=== PATIENT | female | born 1985 | race Caucasian/White ===

== ENCOUNTER 2023-08-15 12:41 | Outpatient (CLI) | payer OTHER, SELFPAY | END 2023-08-15 12:42 | disposition home or self-care (01) | LOC: AMB 09-01 12:52 | PROVIDERS: Visit Provider Student in an Organized Health Care Education/Training Program | DX: R41.82 Altered mental status, unspecified (principal) | CPT/HCPCS: A0425; A0427 ==

== ENCOUNTER 2024-12-26 12:33 | Outpatient (CLI) | payer OTHER, SELFPAY | END 2024-12-26 12:34 | disposition home or self-care (01) | LOC: NFLDREF 12-31 01:35 | PROVIDERS: Visit Provider Nurse Practitioner Family | DX: R30.0 Dysuria (principal); N39.0 Urinary tract infection, site not specified; R35.0 Frequency of micturition | CPT/HCPCS: 87086; 87186 ==

== ENCOUNTER 2025-01-13 11:25 | Outpatient (CLI) | payer OTHER, SELFPAY | END 2025-01-13 11:26 | disposition home or self-care (01) | LOC: NFLDREF 11:27 | PROVIDERS: Visit Provider Obstetrics & Gynecology | DX: N92.0 Excessive and frequent menstruation with regular cycle (principal) | CPT/HCPCS: 84443 ==

== ENCOUNTER 2025-01-20 09:14 | Outpatient (CLI) | payer OTHER, SELFPAY ==
--- NOTE | 2025-01-20 09:15 | CRLHL7_ITS ---
For Patients: As a result of the Century Cures Act, medical imaging exams and procedure reports are released immediately into your electronic medical record. You may view this report before your referring provider. If you have questions, please contact your health care provider. INDICATION: Menorrhagia and dysmenorrhea TECHNIQUE: Ultrasound pelvis transabdominal and transvaginal for better assessment or to better visualize the endometrium. Real-time sonographic images with color Doppler imaging of the ovaries were obtained. COMPARISON: Pelvic ultrasound 11/16/2016 FINDINGS: Uterus: 10.1 x 4.9 x 7.4 cm. Normal echotexture of the myometrium. No masses. Endometrium: Transvaginal imaging was performed to better evaluate the endometrium. Small amount of fluid within the endometrium that is difficult to accurately measure. Poorly visualized, irregular junctional zone with a few cystic areas. Right ovary measures 5.5 x 4.2 x 4.3 cm. Left ovary measures 3.3 x 1.4 x 2 cm. Simple right ovarian cyst measuring up to 4.1 cm. Blood flow is demonstrated in both ovaries. Cul-de-sac: No significant free fluid. IMPRESSION: Small amount of fluid within the endometrium that is difficult to accurately measure. Poorly visualized, irregular junctional zone with a few cystic areas suspicious for adenomyosis. Pelvic MRI could be considered for further evaluation Dictated by Nohelia Aggarwal MD @ 01/23/2025 9:41:38 AM (Electronically Signed)
== END 2025-01-20 09:15 | disposition home or self-care (01) ==
LOC: US 09:14
PROVIDERS: Visit Provider Obstetrics & Gynecology
DX: N92.0 Excessive and frequent menstruation with regular cycle (principal); N94.6 Dysmenorrhea, unspecified
CPT/HCPCS: 76830; 76856

== ENCOUNTER 2025-01-29 11:06 | Outpatient (CLI) | payer OTHER, SELFPAY | END 2025-01-29 11:07 | disposition home or self-care (01) | PROVIDERS: Visit Provider Obstetrics & Gynecology | DX: D64.9 Anemia, unspecified (principal); N92.0 Excessive and frequent menstruation with regular cycle | CPT/HCPCS: 82728 ==

== ENCOUNTER 2025-02-20 14:48 | Emergency (ER) | payer OTHER, SELFPAY ==
--- OUTSIDE RECORDS SUMMARY | 2025-01-28 17:35 | XMS_ITS | Encounter Summary ---
Author Organization [place] Address [address] [place] [address]. [place] [address] Care Team Providers Care Oceanographic Meteorologist Name Role Phone Clinic, [facility] Pro vider Khushbu Jain RN Unavailable Unavailable Carmen Menon MD Unavailable + [phone] Tayler Courtney MD PhD Unavailable [phone] Carmen Menon MD Unavailable + [phone] Tayler Courtney MD PhD Unavailable [phone] Jayne Sumner [facility] Unavailable Unavailable Reason for Visit * Reason Comments Derm Problem Body rashes noticed today, itchiness, redness and spreading rapidly. No other symptoms. Encounter Details Date Type Department Care Team (Late st Contact Info) Description 01/28/2025 5:35 PM CDT Office Visit [facility] [place] [address] [place] [phone] Violetta Dorsey PA-C [address] [place] [address] Hives (Primary Dx) Social History Tobacco Use [...] Sex Assigned at Female 05/03/2024 7:08 AM FINANCIAL SYSTEMS DIRECTOR Legal Sex Female 3:27 AM FINANCIAL SYSTEMS DIRECTOR Gender Identity Female 05/03/2024 7:08 AM FINANCIAL SYSTEMS DIRECTOR Sexual Orientation Not on file documented [...] be sent through Care Everywhere. * Urticaria (Japanese) documented in this encounter Progress Notes * Kush Dalal MA - 01/28/2025 5:35 PM CDT Urgent Care Clinic Visit Chief Complaint Patient presents with Derm Problem Body rashes noticed today, itchiness, redness and spreading rapidly. No other symptoms. 01/28/2025 6:11 PM Additional Questions Roomed by kush Accompanied by margret * iVoletta Dorsey PA-C - 01/28/2025 5:35 PM CDT [...] Symptoms failing to improve. Violetta Dorsey PA-C [facility] [place] is a 39 year old female who presents to clinic today for the following health issues: Chief Complaint Patient presents with Derm Problem Body rashes noticed today, itchiness, redness and spreading rapidly. No other symptoms. 01/28/2025 6:11 PM Additional Questions Roomed by kush Accompanied by marrget YE Patient with medical history significant for [...] Description 04/07/2025 3:00 PM CDT Ancillary Procedure [facility] [place] [address] [facility] 1st [place] [phone] Carmen Menon MD [address] [place] [id number] 04/07/2025 4:30 PM CDT Oncology Visit [facility] [address] [place] [phone] Carmen Menon MD [address] [place] [address] [phone] 04/10/2025 11:00 AM CDT Office Visit [facility] Radiation Oncology [address] [facility], [address]st [place] [phone] Tayler Courtney MD PhD [address] [place] [phone] documented as of this encounter Goals Goal [...] documented as of this encounter Care Teams Oceanographic Meteorologist Relationship Specialty Start Date End Date Clinic, [facility] [place] [address] [place] [address] PCP - General 08/15/23 Khushbu Jain, RN Specialty Lithographic Press Operator Apprentice Hematology & Oncology 09/04/23 Carmen Menon MD [address] [place], [place] [phone] Neurology 09/04/23 Tayler Courtney MD PhD [address] [place] [address] [phone] Radiation Oncology 09/04/23 Carmen Menon MD [address] [place], [place] [phone] Assigned Neuroscience Provider 09/16/23 Tayler Courtney MD PhD [address] [place] [address] [phone] Assigned Cancer Care Provider 10/17/23 Jayne Sumner, [facility] Pharmacist 11/07/23 documented as of this encounter
[2025-02-20] VITALS (13 sets, daily range): BP systolic 110–169; BP diastolic 53–78; PULSE 56–84; RESP 14–20; TEMP 36.1–36.6; O2SAT 96–100; BMI 40.7
--- NOTE | 2025-02-20 15:05 | ED_ITS ---
HPI - Female Genitourinary General Time Seen by Provider: 15:05 <Kandace Concepcion MD - Last Filed: 02/23/25 22:05> Date Seen: 02/20/25 <Kandace Concepcion MD - Last Filed: 02/23/25 22:05> Chief complaint: Vaginal Bleeding <Kandace Concepcion MD - Last Filed: 02/23/25 22:05> Stated complaint: vaginal bleeding <Kandace Concepcion MD - Last Filed: 02/23/25 22:05> Time Seen by Provider: 02/20/25 14:53 <Kandace Concepcion MD - Last Filed: 02/23/25 22:05> Source: patient, RN notes reviewed and old records reviewed <Kandace Mclain MD - Last Filed: 02/23/25 22:05> Mode of arrival: ambulatory <Kandace Concepcion MD - Last Filed: 02/23/25 22:05> Limitations: no limitations <Kandace Concepcion MD - Last Filed: 02/23/25 22:05> History of Present Illness HPI Narrative: This 39-year-old female with known menorrhagia whom has seen Lacey here is coming in with ongoing menstrual bleeding. She is had heavy vaginal bleeding for the last 10 days. She uses the cervical cup, is emptying it every 2 hours. She has baseline significant anemia. She is scheduled for hysterectomy on . She tried to use a super tampon blood through within 30 minutes per report. She [facility] and they advised her to come in. She is not feeling lightheaded, no shortness of breath, no chest pain, no dizziness, no symptoms from any acute blood loss at this time. 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 She did follow the protocol of norethindrone tablets outlined, it did not stop the bleeding. She has had a workup. Please see Dr. Claros's notes form November and December of this year. <Kandace Concepcion MD - Last Filed: 02/23/25 22:05> elicited complaint: vaginal bleeding <Kandace Concepcion MD - Last Filed: 02/23/25 22:05> Related Data Home medications: Home Medications ?Medication ?Instructions ?Recorded ?Confirmed escitalopram oxalate 10 mg tablet 10 mg PO QDAY 02/20/25 ferrous gluconate 324 mg (38 mg mg PO DAILY 06/04/24 0 01/29/25 iron) tablet levetiracetam 1,000 mg tablet 1,000 mg PO BID 06/04/24 02/20/25 Previous Rx's ?Medication ?Instructions ?Recorded norethindrone acetate 5 mg tablet 5 mg PO TID PRN blee ding #60 tabs 02/20/25 tranexamic acid 650 mg tablet 1,300 mg (2 x 650 mg) PO TID 5 02/20/25 days #30 tabs <Kandace Concepcion MD - Last Filed: 02/23/25 22:05> Allergies/Adverse reactions: Allergies Allergy/AdvReac Type Severity Reaction Status Date / Time No Known Drug Allergies Allergy Verified 02/20/25 14:54 <Kandace Concepcion MD - Last Filed: 02/23/25 22:05> [facility] Medical History: Medical History (Updated 02/21/25 @ 10:41 by Michelle Todd ~ RN, RN) History of vaginal delivery 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 (ICD-10) <Kandace Concepcion MD - Last Filed: 02/23/25 22:05> Surgical History: Surgical History History of excision of lesion (08/23/23) ?Z98.890 - Other specified postprocedural states (ICD-10) ?Z87.2 - Personal history of diseases of the skin and subcutaneous tissue (ICD-10) History of excision of pilonidal cyst (2000) ?Z98.890 - Other specified postprocedural states (ICD-10) H/O dilation and curettage (07/26/16) ?Z98.890 - Other specified postprocedural states (ICD-10) <Kandace Concepcion MD - Last Filed: 02/23/25 22:05> Family History: Family History (Updated 01/14/25 @ 10:00 by Felisha Claros MD) Family/Other No problems noted. Brother Abuse, drug or alcohol Aunt Abuse, drug or alcohol Grandfather Stroke Maternal Grandmother Cancer <Kandace Concepcion MD - Last Filed: 02/23/25 22:05> Social History: Social History (Updated 01/14/25 @ 10:01 by Felisha Claros MD) Narrative: Cis-gender, heterosexual woman Relationship status: . Spouse/Partner: Pee Lives with her 10 children Education: Associates degree Occupation: [employer] mom Tobacco: Never smoker E-cigarettes: No Alcohol: Yes.-2 servings/month Illicit/recreational drugs: No Safety concerns at home or work: No Dietary restriction(s): No Exercise: Yes, walk 3 times per week Smoking Status: Never smoker How often do you have a drink containing alcohol: monthly or less AUDIT-C Alcohol total score: 1 Non-prescribed substance use: denies use <Kandace Concepcion MD - Last Filed: 02/23/25 22:05> Exam Const: Vital Signs, click to edit/add: Vital Signs - 24 hr 02/20/25 14:56 02/20/25 16:20 02/20/25 18:39 Temperature 97.6 F 97.1 F L Pulse Rate 66 70 Pulse Rate [Pulse Oximeter] 84 Respiratory Rate 20 14 16 Blood Pressure 116/69 113/53 L Blood Pressure [Ri ght Upper Arm] 135/72 Pulse Oximetry 99 100 100 Oxygen Delivery Me thod Room Air Room Air 02/20/25 18:57 02/20/25 19:27 02/20/25 19:57 Temperature 97.4 F L 97.2 F L 97.2 F L Pulse Rate 61 63 61 Pulse Rate [Pulse Oximeter] Respiratory Rate 16 16 14 Blood Pressure 116/55 L 116/55 L 128/69 Blood Pressure [Ri ght Upper Arm] Pulse Oximetry 100 100 100 Oxygen Delivery Me thod Room Air Room Air Room Air 02/20/25 20:17 02/20/25 20:24 02/20/25 20:47 Temperature 97.3 F L 97.8 F Pulse Rate 68 58 L 60 Pulse Rate [Pulse Oximeter] Respiratory Rate 16 16 16 Blood Pressure 169/78 H 114/57 L 112/71 Blood Pressure [Ri ght Upper Arm] Pulse Oximetry 96 98 100 Oxygen Delivery Me thod Room Air Room Air 02/20/25 21:04 02/20/25 21:05 02/20/25 21:35 Temperature 97.4 F L 96.9 F L 97.2 F L Pulse Rate 60 56 L 66 Pulse Rate [Pulse Oximeter] Respiratory Rate 16 14 16 Blood Pressure 110/60 121/62 130/77 Blood Pressure [Ri ght Upper Arm] Pulse Oximetry 98 98 100 Oxygen Delivery Me thod Room Air Room Air Room Air <Kandace Concepcion MD - Last Filed: 02/23/25 22:05> Vital Signs, click to edit/add: Vital Signs - 24 hr 02/20/25 14:56 02/20/25 16:20 02/20/25 18:39 Temperature 97.6 F 97.1 F L Pulse Rate 66 70 Pulse Rate [Pulse Oximeter] 84 Respiratory Rate 20 14 16 Blood Pressure 116/69 113/53 L Blood Pressure [Ri ght Upper Arm] 135/72 Pulse Oximetry 99 100 100 Oxygen Delivery Me thod Room Air Room Air 02/20/25 18:57 02/20/25 19:27 02/20/25 19:57 Temperature 97.4 F L 97.2 F L 97.2 F L Pulse Rate 61 63 61 Pulse Rate [Pulse Oximeter] Respiratory Rate 16 16 14 Blood Pressure 116/55 L 116/55 L 128/69 Blood Pressure [Ri ght Upper Arm] Pulse Oximetry 100 100 100 Oxygen Delivery Me thod Room Air Room Air Room Air 02/20/25 20:17 02/20/25 20:24 02/20/25 20:47 Temperature 97.3 F L 97.8 F Pulse Rate 68 58 L 60 Pulse Rate [Pulse Oximeter] Respiratory Rate 16 16 16 Blood Pressure 169/78 H 114/57 L 112/71 Blood Pressure [Ri ght Upper Arm] Pulse Oximetry 96 98 100 Oxygen Delivery Me thod Room Air Room Air 02/20/25 21:04 02/20/25 21:05 02/20/25 21:35 Temperature 97.4 F L 96.9 F L 97.2 F L Pulse Rate 60 56 L 66 Pulse Rate [Pulse Oximeter] Respiratory Rate 16 14 16 Blood Pressure 110/60 121/62 130/77 Blood Pressure [Ri ght Upper Arm] Pulse Oximetry 98 98 100 Oxygen Delivery Me thod Room Air Room Air Room Air <Pee Guidry MD - Last Filed: 02/20/25 22:22> Course Course ED Course: Patient signed out to Dr. Guidry at 4:00 p.m., pending results of CBC CBC came back with a low hemoglobin at 6.4. Her baseline hemoglobin is around 7.5 and was recently 7.8. Dr. Guidry discussed with the patient's collar separator, Dr. Reagan Thorpe. Gynecology wants us to give her a transfusion here in the ER because of her anemia with a hemoglobin less than 7. Dr. Reagan Thorpe also recommends 1 g of tranexamic acid IV-ordered. Also Dr. Reagan Thorpe requests 20 mg of medroxyprogesterone p.o.. -ordered. Patient did well during her transfusions. Transfusion is station was delayed by a long process of type and cross in the lab. Recheck-10:00 p.m.. Still doing well. Part way through her 2nd unit infusion Plan will be to discharge after completing her infusion. She is going to start on additional medroxyprogesterone prescribed by her collar separator. She will follow-up with Gynecology Clinic. <Pee Guidry MD - Last Filed: 02/20/25 22:22> Vital Signs Vital signs: Initial Vital Signs Temperature 97.6 F 02/20/25 14:56 Temperature Source Temporal Artery Scan 02/20/25 14:56 Pulse Rate 84 02/20/25 14:56 Respiratory Rate 20 02/20/25 14:56 Blood Pressure 135/72 02/20/25 14:56 Blood Pressure Mean 93 02/20/25 14:56 Pulse Oximetry 99 02/20/25 14:56 Oxygen Delivery Method Room Air 02/20/25 14:56 Vital Signs Temperature 97.6 F 02/20/25 14:56 Pulse Rate 84 02/20/25 14:56 Respiratory Rate 20 02/20/25 14:56 Blood Pressure 135/72 02/20/25 14:56 Pulse Oximetry 99 02/20/25 14:56 Oxygen Delivery Method Room Air 02/20/25 14:56 Temperature 97.3 F L 02/20/25 22:05 Pulse Rate 60 02/20/25 22:05 Respiratory Rate 14 02/20/25 22:05 Blood Pressure 126/57 L 02/20/25 22:05 Pulse Oximetry 98 02/20/25 22:05 Oxygen Delivery Method Room Air 02/20/25 22:05 <Kandace Concepcion MD - Last Filed: 02/23/25 22:05> Initial Vital Signs Temperature 97.6 F 02/20/25 14:56 Temperature Source Temporal Artery Scan 02/20/25 14:56 Pulse Rate 84 02/20/25 14:56 Respiratory Rate 20 02/20/25 14:56 Blood Pressure 135/72 02/20/25 14:56 Blood Pressure Mean 93 02/20/25 14:56 Pulse Oximetry 99 02/20/25 14:56 Oxygen Delivery Method Room Air 02/20/25 14:56 Vital Signs Temperature 97.6 F 02/20/25 14:56 Pulse Rate 84 02/20/25 14:56 Respiratory Rate 20 02/20/25 14:56 Blood Pressure 135/72 02/20/25 14:56 Pulse Oximetry 99 02/20/25 14:56 Oxygen Delivery Method Room Air 02/20/25 14:56 Temperature 97.3 F L 02/20/25 22:05 Pulse Rate 60 02/20/25 22:05 Respiratory Rate 14 02/20/25 22:05 Blood Pressure 126/57 L 02/20/25 22:05 Pulse Oximetry 98 02/20/25 22:05 Oxygen Delivery Method Room Air 02/20/25 22:05 <Pee Guidry MD - Last Filed: 02/20/25 22:22> Medications Administered Medications: Discontinued Medications Generic Name Dose Route Start Last Admin Trade Name Dhavalq PRN Reason Stop Dose Admin Tranexamic Acid 1,000 mg/ 110 mls @ 660 mls/hr 02/20/25 17:10 02/20/25 17:30 Sodium Chloride IVPB 02/20/25 17:19 Infused ONCE ONE Infusion Medroxyprogesterone Acetate 20 mg 02/20/25 19:55 02/20/25 20:21 Medroxyprogesterone 5 Mg Tablet PO 02/20/25 19:56 20 mg ONCE ONE Administration Sodium Chloride 250 ml 02/20/25 16:32 02/20/25 18:44 0.9 % Sodium Chloride 500 Ml IV 02/21/25 23:59 250 ml ONCE PRN Administration <Kandace Concepcion MD - Last Filed: 02/23/25 22:05> Discontinued Medications Generic Name Dose Route Start Last Admin Trade Name Mary PRN Reason Stop Dose Admin Tranexamic Acid 1,000 mg/ 110 mls @ 660 mls/hr 02/20/25 17:10 02/20/25 17:30 Sodium Chloride IVPB 02/20/25 17:19 Infused ONCE ONE Infusion Medroxyprogesterone Acetate 20 mg 02/20/25 19:55 02/20/25 20:21 Medroxyprogesterone 5 Mg Tablet PO 02/20/25 19:56 20 mg ONCE ONE Administration Sodium Chloride 250 ml 02/20/25 16:32 02/20/25 18:44 0.9 % Sodium Chloride 500 Ml IV 02/21/25 23:59 250 ml ONCE PRN Administration <Pee Guidry MD - Last Filed: 02/20/25 22:22> MDM - Female Genitourinary Lab Data Labs: Lab Results 02/20/25 02/20/25 Range/Units 15:35 16:24 WBC 5.23 (4.50-11.00) K/uL RBC 3.00 L (4.00-5.20) m/uL Hgb 6.4 L* (12.0-16.0) gm/dL Hct 22.1 L (33.0-51.0) % MCV 74 L (80-100) fL MCH 21 L (26-34) pg MCHC 29 L (32-36) gm/dL RDW Coeff of Zoë 20.1 H (11.5-15.5) % Plt Count 272 (140-440) K/uL Neut % (Auto) 66.3 (42.0-72.0) % Lymph % (Auto) 22.0 (20-44) % [place] % (Auto) 6.5 (0.0-11.0) % Eos % (Auto) 4.0 (0.0-7.0) % Baso % (Auto) 1.0 (0.0-3.0) % Neut # (Auto) 3.47 (1.7-7.0) K/uL Lymph # (Auto) 1.15 (0.90-2.90) K/uL [place] # (Auto) 0.30 (0.00-0.90) K/UL Eos # (Auto) 0.21 (0.00-0.50) K/uL Baso # (Auto) 0.05 (0.00-0.30) K/uL Abs Immat Gran (auto) 0.01 (0.00-0.30) K/uL Imm/Tot Granulo (auto) 0.2 % INR 1.06 (0.91-1.10) APTT 27 (23-33) Seconds Lab Acknowledgement Test Added Blood Type O Positive Antibody Screen NEGATIVE Crossmatch (AHG) See Detail <Kandace Concepcion MD - Last Filed: 02/23/25 22:05> Lab Results 02/20/25 02/20/25 Range/Units 15:35 16:24 WBC 5.23 (4.50-11.00) K/uL RBC 3.00 L (4.00-5.20) m/uL Hgb 6.4 L* (12.0-16.0) gm/dL Hct 22.1 L (33.0-51.0) % MCV 74 L (80-100) fL MCH 21 L (26-34) pg MCHC 29 L (32-36) gm/dL RDW Coeff of Zoë 20.1 H (11.5-15.5) % Plt Count 272 (140-440) K/uL Neut % (Auto) 66.3 (42.0-72.0) % Lymph % (Auto) 22.0 (20-44) % [place] % (Auto) 6.5 (0.0-11.0) % Eos % (Auto) 4.0 (0.0-7.0) % Baso % (Auto) 1.0 (0.0-3.0) % Neut # (Auto) 3.47 (1.7-7.0) K/uL Lymph # (Auto) 1.15 (0.90-2.90) K/uL [place] # (Auto) 0.30 (0.00-0.90) K/UL Eos # (Auto) 0.21 (0.00-0.50) K/uL Baso # (Auto) 0.05 (0.00-0.30) K/uL Abs Immat Gran (auto) 0.01 (0.00-0.30) K/uL Imm/Tot Granulo (auto) 0.2 % INR 1.06 (0.91-1.10) APTT 27 (23-33) Seconds Lab Acknowledgement Test Added Blood Type O Positive Antibody Screen NEGATIVE Crossmatch (AHG) See Detail <Pee Guidry MD - Last Filed: 02/20/25 22:22> Discharge Plan Discharge Clinical Impression: Abnormal vaginal bleeding, Anemia <Kandace Concepcion MD - Last Filed: 02/23/25 22:05> Patient Disposition: Home, Self-Care <Kandace Concepcion MD - Last Filed: 02/23/25 22:05> Condition: Stable <Kandace Concepcion MD - Last Filed: 02/23/25 22:05> Instructions: Abnormal (Dysfunctional) Uterine Bleeding (ED), Anemia (ED) <Kandace Concepcion MD - Last Filed: 02/23/25 22:05> Additional Instructions: As we discussed, please return to the ER right away if you have any concerns especially worsening heavy bleeding, abdominal pain, fever, or symptoms of anemia such as weakness, dizziness, or fainting Please follow-up with her collar separator in clinic as soon as possible. Continue on your other medications as prescribed by your collar separator. <Kandace Concepcion MD - Last Filed: 02/23/25 22:05> Prescriptions: No Action escitalopram oxalate 10 mg tablet 10 mg PO QDAY levetiracetam 1,000 mg tablet 1,000 mg PO BID ferrous gluconate 324 mg (38 mg iron) tablet PO DAILY norethindrone acetate 5 mg tablet 5 mg PO TID PRN (Reason: bleeding) Qty: 60 1RF tranexamic acid 650 mg tablet 1,300 mg PO TID 5 Days Qty: 30 2RF Rx Instructions: Use for 5 days during your menstrual cycle. <Kandace Concepcion MD - Last Filed: 02/23/25 22:05> Follow Up/Referrals: Provider,Not a Local [Primary Care Provider, Family Practice] <Kandace Concepcion MD - Last Filed: 02/23/25 22:05> Stand Alone Forms: MyHealth Info Instructions <Kandace Concepcion MD - Last Filed: 02/23/25 22:05>
--- OUTSIDE RECORDS SUMMARY | 2025-02-20 15:20 | XMS_ITS | Encounter Summary ---
Author Organization [facility] Address [address] [place] [address]. [place] [address] Care Team Providers Care Sawmill Or Timber Yard Worker Name Role Phone Clinic, [facility] [place] [facility] Pro vider Khushbu Jain RN Unavailable Unavailable Carmen Menon MD Unavailable [phone] Tayler Courtney MD PhD Unavailable [phone] Cramen Menon MD Unavailable + [phone] Tayler Courtney MD PhD Unavailable [phone] Jayne Sumner [facility] Unavailable Unavailable Encounter Details Date Type Department Care Team (Late st Contact Info) Description 12/22/2023 [facility] [address] [place] [address] Jarrell Keith Social History Tobacco Use Types Packs/Day Years Used Date Smoking Tobacco: Never Passive Smoke Exposure: Never Alcohol Use Standard Drinks/Week Comments No 0 (1 standard drink = 0.6 oz pur e alcohol) PHQ-2 Answer Date Recorded PHQ-2 Score 2 09/07/2023 Adolescent Education Answer Date Record ed Getting School Help Needed Not on file 08/15 Comments No Sex and Gender Information Value Date Recorded Sex Assigned at Female 05/03/2024 7:08 AM FIELD DIRECTOR Legal Sex Female 3:27 AM FIELD DIRECTOR Gender Identity Female 05/03/2024 7:08 AM FIELD DIRECTOR Sexual Orientation Not on file documented as of this encounter Plan of Treatment Upcoming Encounters Date Type Department Care Team (Late st Contact Info) Description 04/07/2025 3:00 PM CDT Ancillary Procedure [facility] [address] [facility] [address] [place] [phone] Carmen Menon MD [address] [place] [address] [id number] 04/07/2025 4:30 PM CDT Oncology Visit [facility] [address] [place] [phone] Carmen Menon MD [address] [place] [address] [phone] 04/10/2025 11:00 AM CDT Office Visit [facility] Radiation Oncology [address] [facility], [address] [place] [phone] Tayler Courtney MD PhD [address] [place] [address] [id number] documented as of this encounter Goals Goal [...] documented as of this encounter Visit Diagnoses Not on filedocumented in this encounter Additional Health Concerns Active Problems Noted Date Diagnosed Date MyC ECC SURG ENROLL 08/18/2023 documented as of this encounter Care Teams Sawmill Or Timber Yard Worker Relationship Specialty Start Date End Date [facility] [address] [place] [address] PCP - General 08/15/23 Khushbu Jain, RN Specialty [facility] Oncology 09/04/23 Carmen Menon MD [address] [place] [address] Neurology 09/04/23 Tayler Courtney MD PhD [address] [place] [address] Radiation Oncology 09/04/23 Carmen Menon MD [address] [place] [address] Assigned Neuroscience Provider 09/16/23 Tayler Courtney MD PhD [address] [place] [address] Assigned Cancer Care Provider 10/17/23 Jayne Sumner [facility] Pharmacist 11/07/23 documented as of this encounter
--- OUTSIDE RECORDS SUMMARY | 2025-02-20 15:20 | XMS_ITS | Encounter Summary ---
Author Organization [facility] Address [address] [place] [address]. [place] [address] Care Team Providers Care Head Banquet Waitress Name Role Phone Clinic, [facility] [place] [facility] Pro vider Khushbu Jain RN Unavailable Unavailable Carmen Menon MD Unavailable [phone] Tayler Courtney MD PhD Unavailable [phone] Carmen Menon MD Unavailable + [phone] Tayler Courtney MD PhD Unavailable [phone] Jayne Sumner [facility] Unavailable Unavailable Encounter Details Date Type Department Care Team (Late st Contact Info) Description 09/04/2023 [facility] Medical Advice [facility] [address] [place] [address] Nirav Dugan, [facility] Social History Tobacco Use Types Packs/Day Years Used Date Smoking Tobacco: Never Alcohol Use Standard Drinks/Week Comments No 0 (1 standard drink = 0.6 oz pur e alcohol) PHQ-2 Answer Date Recorded PHQ-2 Score 2 09/07/2023 Adolescent Education Answer Date Record ed Getting School Help Needed Not on file 08/15 Comments Unknown Sex and Gender Information Value Date Recorded Sex Assigned at Female 05/03/2024 7:08 AM ARMORED CAR MESSENGER Legal Sex Female 3:27 AM ARMORED CAR MESSENGER Gender Identity Female 05/03/2024 7:08 AM ARMORED CAR MESSENGER Sexual Orientation Not on file documented as of this encounter Plan of Treatment Upcoming Encounters Date Type Department Care Team (Late st Contact Info) Description 04/07/2025 3:00 PM CDT Ancillary Procedure [facility] Imaging Center [facility] [address] [facility] [address] [place] [phone] Carmen Menon MD [address] [place] [address] [phone] 04/07/2025 4:30 PM CDT Oncology Visit [facility] [address] [place] [phone] Carmen Menon MD [address] [place] [address] [phone] 04/10/2025 11:00 AM CDT Office Visit [facility] Radiation Oncology [address] [facility], [address] [place] [phone] Tayler Courtney MD PhD [address] [place] [address] [id number] documented as of this encounter Goals Goal Patient Goal Type Associated Problems Recent Progress Patient-Stated? Author MYC ECC SURG ENROLL Care Plan MyC ECC SURG ENROLL [place] Monica Cummins Ruben documented as of this encounter Visit Diagnoses Not on filedocumented in this encounter Additional Health Concerns Active Problems Noted Date Diagnosed Date MyC ECC SURG ENROLL 08/18/2023 Infection Onset Date Last Indicated Resolved Time Recovered COVID 08/14/2023 08/25/2023 11/08/2023 1 1:39 PM CDT documented as of this encounter Care Teams Head Banquet Waitress Relationship Specialty Start Date End Date Clinic, [facility] [id number] [place] [address] PCP - General 08/15/23 Khushbu Jain, RN Specialty Manager Corporate Hematology & Oncology 09/04/23 Carmen Menon MD [address] [place] [address] Neurology 09/04/23 Tayler Courtney MD PhD [address] [place] [address] Radiation Oncology 09/04/23 Carmen Menon MD [address] [place] [address] Assigned Neuroscience Provider 09/16/23 Tayler Courtney MD PhD [address] [place] [address] Assigned Cancer Care Provider 10/17/23 Jayne Sumner [facility] Pharmacist 11/07/23 documented as of this encounter
--- OUTSIDE RECORDS SUMMARY | 2025-02-20 15:20 | XMS_ITS | Encounter Summary ---
Author Organization [facility] Address [address] [place] [address] Care Team Providers Care Stator Connector Name Role Phone Clinic, [place] [facility] [place] [facility] Pro vider Khushbu Jain RN Unavailable Unavailable Carmen Menon MD Unavailable + [phone] Tayler Courtney MD PhD Unavailable [phone] Carmen Menno MD Unavailable + [phone] Tayler Courtney MD PhD Unavailable [phone] Jayne Sumner [facility] Unavailable Unavailable Encounter Details Date Type Department Care Team (Late st Contact Info) Description 11/02/2023 MyC Medical Advice [facility] Radiation Oncology [address] [facility], 1st [place] [phone] Tayler Courtney MD PhD [address] [place] [id number] Social History Tobacco Use Types Packs/Day Years [...] Sex Assigned at Female 05/03/2024 7:08 AM METEOROLOGY PROFESSOR Legal Sex Female 3:27 AM METEOROLOGY PROFESSOR Gender Identity Female 05/03/2024 7:08 AM METEOROLOGY PROFESSOR Sexual Orientation Not on file documented as of this encounter Plan of Treatment Upcoming Encounters Date Type Department Care Team (Late st Contact Info) Description 04/07/2025 3:00 PM CDT Ancillary Procedure [facility] Imaging Center [facility] [address] [facility] [address] [place] [phone] Carmen Menon MD [address] [place] [phone] 04/07/2025 4:30 PM CDT Oncology Visit [facility] [address] [place] [phone] Carmen Menon MD [address] [place] [address] [phone] 04/10/2025 11:00 AM CDT Office Visit [facility] Radiation Oncology [address] [facility], [address] [place] [phone] Tayler Courtney MD PhD [address] [place] [address] documented as of this encounter Goals Goal [...] documented as of this encounter Care Teams Stator Connector Relationship Specialty Start Date End Date Clinic, [facility] [address] [place] [address] PCP - General 08/15/23 Khushbu Jain, ANAND Specialty Thread Weaver Hematology & Oncology 09/04/23 Carmen Menon MD [address] [place] [phone] Neurology 09/04/23 Tayler Courtney MD PhD [address] [place] [address] Radiation Oncology 09/04/23 Carmen Menon MD [address] [place] [address] Assigned Neuroscience Provider 09/16/23 Tayler Courtney MD PhD [address] [place] [address] Assigned Cancer Care Provider 10/17/23 Jayne Sumner, [facility] Pharmacist 11/07/23 documented as of this encounter
--- OUTSIDE RECORDS SUMMARY | 2025-02-20 15:20 | XMS_ITS | Encounter Summary ---
Author Organization [place] Address [address] [place] [address]. [place] [address] Care Team Providers Care Capacity Planning Manager Name Role Phone Clinic, [facility] [place] [facility] Pro vider Khushbu Jain RN Unavailable Unavailable Carmen Menon MD Unavailable +[phone] Tayler Courtney MD PhD Unavailable [phone] Carmen Menon MD Unavailable + [phone] Tayler Courtney MD PhD Unavailable [phone] Jayne Sumner [facility] Unavailable Unavailable Encounter Details Date Type Department Care Team (Late st Contact Info) Description 04/22/2024 [facility] Medical Advice [facility] [address] [place] [address] Sharron Johnson Social History Tobacco Use Types Packs/Day Years [...] Sex Assigned at Female 05/03/2024 7:08 AM COMMERCIAL ESTIMATOR Legal Sex Female 3:27 AM COMMERCIAL ESTIMATOR Gender Identity Female 05/03/2024 7:08 AM COMMERCIAL ESTIMATOR Sexual Orientation Not on file documented as of this encounter Plan of Treatment Upcoming Encounters Date Type Department Care Team (Late st Contact Info) Description 04/07/2025 3:00 PM CDT Ancillary Procedure [facility] 909 [facility] 1st [place] [phone] Carmen Menon MD [address] [place] [address] 226555 04/07/2025 4:30 PM CDT Oncology Visit [facility] 909 [place] [phone] Carmen Menon MD [address] [place] [address] 612175 04/10/2025 11:00 AM CDT Office Visit [facility] Radiation Oncology 500 [facility], 1st [place] [phone] Tayler Courtney MD PhD [address] [place] [address] 10[address]45 documented as of this encounter Goals Goal [...] documented as of this encounter Care Teams Capacity Planning Manager Relationship Specialty Start Date End Date [facility] [address] [place] [address] PCP - General 08/15/23 Khushbu Jain, RN Specialty Pipe Racker Hematology & Oncology 09/04/23 Carmen Menon MD 909 [place] [address] Neurology 09/04/23 Tayler Courtney MD PhD [address] [place] [address] Radiation Oncology 09/04/23 Carmen Menon MD 909 [place] [address] Assigned Neuroscience Provider 09/16/23 Tayler Courtney MD PhD 500 [place] [address] Assigned Cancer Care Provider 10/17/23 Jayne Sumner [facility] Pharmacist 11/07/23 documented as of this encounter
--- OUTSIDE RECORDS SUMMARY | 2025-02-20 15:20 | XMS_ITS | Encounter Summary ---
Author Organization [place] Address [address] [place] [address]. [place] [address] Care Team Providers Care Parts Counterman Name Role Phone Clinic, [place] [facility] [place] [facility] Pro vider Khushbu Jain RN Unavailable Unavailable Carmen Menon MD Unavailable + [phone] Tayler Courtney MD PhD Unavailable [phone] Carmen Menon MD Unavailable + [phone] Tayler Courtney MD PhD Unavailable [phone] Jayne Sumner [facility] Unavailable Unavailable Encounter Details Date Type Department Care Team (Late st Contact Info) Description 08/01/2024 [facility] Medical Advice [facility] Radiation Oncology [address] [facility], 1st [place] [address] Carmen Luis RN Social History Tobacco Use Types Packs/Day Years [...] Sex Assigned at Female 05/03/2024 7:08 AM NURSE'S AIDES TEACHER Legal Sex Female 3:27 AM NURSE'S AIDES TEACHER Gender Identity Female 05/03/2024 7:08 AM NURSE'S AIDES TEACHER Sexual Orientation Not on file documented as of this encounter Plan of Treatment Upcoming Encounters Date Type Department Care Team (Late st Contact Info) Description 04/07/2025 3:00 PM CDT Ancillary Procedure [facility] [place] 909 [facility] 1st [place] [phone] Carmen Menon MD [address] [place] [address] 04/07/2025 4:30 PM CDT Oncology Visit [facility] [address] [place] [phone] Carmen Menon MD [address] [place] [address] 04/10/2025 11:00 AM CDT Office Visit [facility] Radiation Oncology 500 [facility], 1st [place] [phone] Tayler Courtney MD PhD [address] [place] [address] 488795 documented as of this encounter Goals Goal Patient Goal Type Associated Problems Recent Progress Patient-Stated? Author Medical General Yes Khushbu Jain, ANAND Note: Goal Statement: I will follow the [...] documented as of this encounter Care Teams Parts Counterman Relationship Specialty Start Date End Date Clinic, [facility] [place] [address] [place] [address] PCP - General 08/15/23 Khuhsbu Jain, RN Specialty Sales Representative Health Insurance Hematology & Oncology 09/04/23 Carmen Menon MD 909 [place], [place] 822[address] Neurology 09/04/23 Tayler Courtney MD PhD [address] [place] [address] Radiation Oncology 09/04/23 Carmen Menon MD 909 [place], [place] 435[address] Assigned Neuroscience Provider 09/16/23 Tayler Courtney MD PhD 500 [place] [address] Assigned Cancer Care Provider 10/17/23 Jayne Sumner, [facility] Pharmacist 11/07/23 documented as of this encounter
--- OUTSIDE RECORDS SUMMARY | 2025-02-20 15:20 | XMS_ITS | Encounter Summary ---
Author Organization [place] Address [address] [place] [address]. [place] [address] Care Team Providers Care Gear Technician Name Role Phone Clinic, [facility] [place] [facility] Pro vider Khushbu Jain RN Unavailable Unavailable Carmen Menon MD Unavailable [phone] Tayler Courtney MD PhD Unavailable [phone] Carmen Menon MD Unavailable + [phone] Tayler Courtney MD PhD Unavailable [phone] Jayne Sumner [facility] Unavailable Unavailable Encounter Details Date Type Department Care Team (Late st Contact Info) Description 11/13/2023 [facility] 9 [place] [address] Jarrell Keith Social History Tobacco [...] Sex Assigned at Female 05/03/2024 7:08 AM HOMEBOUND TEACHER Legal Sex Female 3:27 AM HOMEBOUND TEACHER Gender Identity Female 05/03/2024 7:08 AM HOMEBOUND TEACHER Sexual Orientation Not on file documented as of this encounter Plan of Treatment Upcoming Encounters Date Type Department Care Team (Late st Contact Info) Description 04/07/2025 3:00 PM CDT Ancillary Procedure [facility] 909 [facility] 1st [place] [phone] Carmen Menon MD [address] [place] [address] 044385 04/07/2025 4:30 PM CDT Oncology Visit [facility] 909 [place] [phone] Carmen Menon MD [address] [place] [address] 379495 04/10/2025 11:00 AM CDT Office Visit [facility] Radiation Oncology 500 [facility], 1st [place] [phone] Tayler Courtney MD PhD [address] [place] [address] 935795 documented as of this encounter Goals Goal [...] documented as of this encounter Care Teams Gear Technician Relationship Specialty Start Date End Date [facility] [address] [place] [address] PCP - General 08/15/23 Khushbu Jain, RN Specialty Bolt Maker Hematology & Oncology 09/04/23 Carmen Menon MD 909 [place] [address] Neurology 09/04/23 Tayler Courtney MD PhD [address] [place] [address] Radiation Oncology 09/04/23 Carmen Menon MD 909 [place] [address] Assigned Neuroscience Provider 09/16/23 Tayler Courtney MD PhD 500 [place] [address] Assigned Cancer Care Provider 10/17/23 Jayne Sumner [facility] Pharmacist 11/07/23 documented as of this encounter
--- OUTSIDE RECORDS SUMMARY | 2025-02-20 15:20 | XMS_ITS | Encounter Summary ---
Author Organization [place] Address [address] [place] [address]. [place] [address] Care Team Providers Care Computing Services Director Name Role Phone Clinic, [place] [facility] [place] [facility] Pro vider Khushbu Jain RN Unavailable Unavailable Carmen Menon MD Unavailable + [phone] Tayler Courtney MD PhD Unavailable [phone] Carmen Menon MD Unavailable + [phone] Tayler Courtney MD PhD Unavailable [phone] Jayne Sumner [facility] Unavailable Unavailable Encounter Details Date Type Department Care Team (Late st Contact Info) Description 06/11/2024 [facility] Radiation Oncology [address] [facility], 1st [place] [address] Jarrell Keith Social History Tobacco Use Types [...] Sex Assigned at Female 05/03/2024 7:08 AM CLINICAL TRIALS DATA COORDINATOR Legal Sex Female 3:27 AM CLINICAL TRIALS DATA COORDINATOR Gender Identity Female 05/03/2024 7:08 AM CLINICAL TRIALS DATA COORDINATOR Sexual Orientation Not on file documented as of this encounter Plan of Treatment Upcoming Encounters Date Type Department Care Team (Late st Contact Info) Description 04/07/2025 3:00 PM CDT Ancillary Procedure [facility] MRI [place] 909 [facility] 1st [place] [phone] Carmen Menon MD [address] [place] [address] 04/07/2025 4:30 PM CDT Oncology Visit [facility] [address] [place] [phone] Carmen Menon MD [address] [place] [address] 04/10/2025 11:00 AM CDT Office Visit [facility] Radiation Oncology 500 [facility], [address] [place] [phone] Tayler Courtney MD PhD 500 [place], [place] 4[address] documented as of this encounter Goals Goal [...] documented as of this encounter Care Teams Computing Services Director Relationship Specialty Start Date End Date Clinic, [facility] [place] [address] [place] [address] PCP - General 08/15/23 Khushbu Jain, RN Specialty Opto Mechanical Technician Hematology & Oncology 09/04/23 Carmen Menon MD 909 [place], [place] [phone] Neurology 09/04/23 Tayler Courtney MD PhD [address] [place] [address] Radiation Oncology 09/04/23 Carmen Menon MD 909 [place], [place] 330225 Assigned Neuroscience Provider 09/16/23 Tayler Courtney MD PhD [address] [place] [address] Assigned Cancer Care Provider 10/17/23 Jayne Sumner [facility] Pharmacist 11/07/23 documented as of this encounter
--- OUTSIDE RECORDS SUMMARY | 2025-02-20 15:20 | XMS_ITS | Clinical Summary ---
Author Organization [facility] Address [address] [place] [address] Care Team Providers Care Financial Reserve Clerk Name Role Phone Unassigned, Provider Primary Care Provider Unava ilable Source Comments You are receiving this document as you are listed as the primary care provider,follow-up provider, or the patient has been referred to you for consultation.This is in compliance with the Medicare andGerman Hospitalcaid EHR Incentive Program,which states Providers who transition their patient to another setting of careor provider of care or refers their patient to another provider of care shouldprovide summary care record for each transition of care or referral. [facility] Allergies No known active allergies Medications Vit-Fe Fumarate-FA ( OR) Take 1 tablet by mouth daily (every 24 hours). 9 Active Cholecalcifero l (VITAMIN D OR) Take 5,000 Int'l Units by mouth daily (every 24 hours). 3 Active Progesterone (AKA ENDOMETRIN) [address] 100 mg vaginally 2 times daily. 60 each 3 3 Active Progesterone (AKA ENDOMETRIN) [address] 100 mg vaginally 2 times daily. 14 each 3 3 Active Progesterone [address] 1 suppository vaginally daily (every 24 hours) for 14 days. 60 suppository 3 3 Active Ascorbic Acid (VITAMIN C) 100 MG tablet Take 1 Tablet (100 mg) by mouth daily. Active guaiFENesin-co deine (ROBITUSSINAC) 100-10 MG/5ML solution Take 5 mL by mouth every 4 hours as needed. 28 weeks preg with twins 118 mL 0 Active Additional Information Patient not taking.Reported on 11/04/2022 Active Problems Problem Noted Date Diagnosed Date Vitamin D deficiency 07/11/2012 Missed menses 06/27/2012 First trimester bleeding 04/26/2012 Resolved Problems Problem Noted Date Diagnosed Date Resolved Date History of delivery, currently 07/23/2012 03/15/2013 Overview (01/28/2016): Needs f/u TVUS in [place] at 16 weeks per consult. Currently on progesterone, continue until 36 weeks per MFM. No need to check levels. First trimester bleeding 01/23/201206/2011 Family History Medical History Relation Name Comments Stroke Maternal Grandfather Relation Name Status Comments Father Alive Mother Alive Brother 1 Alive Brother 2 Alive Maternal Grandfather Maternal Grandmother Alive Paternal Grandfather Alive Paternal Grandmother Alive Sister Alive Social History Tobacco Use Types Packs/Day Years Used Date Smoking Tobacco: Never Alcohol Use Standard Drinks/Week Comments No 0 (1 standard drink = 0.6 oz pur e alcohol) none with Comments No Sex and Gender Information Value Date Recorded Sex Assigned at Not on file Legal Sex Female 4:51 AM CDT Gender Identity Not on file Sexual Orientation Not on file Occupation Industry Job Start Date Job End Date Homemaker Not on file Not on file Not on file Last Filed Vital Signs Vital Sign Reading Time Taken Comments Blood Pressure 119/56 11/04/2022 10:08 AM CDT Pulse 63 11/04/2022 10:08 AM CDT Temperature 36.9 C (98.4 F) 11/04/2022 10:08 AM CDT Respiratory Rate 14 11/04/2022 10:08 AM CDT Oxygen Saturation 100% 11/04/2022 10:08 AM CDT Inhaled Oxygen Concentration - - Weight 84.4 kg (186 lb) 11/06/2012 2:38 PM CDT Height 162.6 cm (5' 4) 07/23/2012 1:10 PM CHARGING CAR OPERATOR p t reported Body Mass Index 31.93 07/23/2012 1:10 PM CHARGING CAR OPERATOR Plan of Treatment Health Maintenance Due Date Last Done Comments Mammogram 1984 Adult Preventive Visit 2002 HepB Vaccine (1) 2003 Cervical Cancer Screening Due 02/05/2005 02/04/2005 HPV Vaccine (1 - 3-dose SCDM series) 2011 COVID-19 Vaccine ( - 2023-2 5 season) 2024 Influenza Vaccine (#1) 2025 04/23/2019 DTaP/Tdap/Td Vaccine (2 - Tdap) 10/10/2029 0 Zoster/Shingles Vaccine (1 of 2) 2034 HIV Screening (Preventive Services) Completed 07/10/2012 Hep C Screening (Preventive Services) Completed 07/10/2012 HepA Vaccine Aged Out No longer eligi ble based on patient's age to complete this topic Hib Vaccine Aged Out No longer eligi ble based on patient's age to complete this topic IPV (Polio) Vaccine Aged Out No longe r eligible based on patient's age to complete this topic MCV4 Vaccine Aged Out No longer eligi ble based on patient's age to complete this topic Meningococcal B Vaccine Aged Out No l onger eligible based on patient's age to complete this topic Pneumococcal Vaccine Aged Out No long er eligible based on patient's age to complete this topic Procedures Procedure Name Priority Date/Time Associated Diagnosis Comments HIV ANTIBODY Routine 07/10/2012 4:05 PM CHARGING CAR OPERATOR Supervision of normal subsequent Special screening examination for other specified viral diseases Screening examination for venereal disease HEPATITIS C ANTIBODY, WITH REFLEX (ANTI-HCV) Routine 07/10/2012 4:05 PM CHARGING CAR OPERATOR Supervision of normal subsequent ANATOMICAL PATH LIQUID BASED Routine 02/04/2005 1:13 PM CDT from Last 3 Months or Most Recently Relevant to Health Maintenance Results * HIV ANTIBODY (07/10/2012 4:05 PM CHARGING CAR OPERATOR) HIV 1/HIV 2 Non-React Non-Reacti ve HP CONVERSION 07/10/2012 4:05 PM CHARGING CAR OPERATOR 07/10/2012 9:31 PM CHARGING CAR OPERATOR us Jennifer Johnson PROFESSOR OF RADIOLOGY, CNM LAB_1 Final Result HP CONVERSION * Hepatitis C Antibody, with Reflex (07/10/2012 4:05 PM CHARGING CAR OPERATOR) Hepatitis C Antibody Non-React Non-Reacti ve HP CONVERSION 07/10/2012 4:05 PM CHARGING CAR OPERATOR 07/10/2012 9:31 PM CHARGING CAR OPERATOR Jennifer Rodriguezvis PROFESSOR OF RADIOLOGY, CNM LAB_1 Final Result Performing Organization Address City/[facility] Co de Phone Number HP CONVERSION * Pap Smear (02/04/2005 1:13 PM CDT) PAP Smear Liquid Based SEE TEXT No normal range HP CONVERSION Comment: Patient: LEEANN LOPEZ Katie CERVICAL CYTOLOGY REPORT Pathology # [id number] Date Obtained: Date Received: CYTOLOGIC IMPRESSION: Negative for intraepithelial lesion or malignancy. ADDITIONAL DATA LMP: CLINICAL HIST LIQUID BASED PAP CERVICAL SPECIMEN ADEQUACY: Satisfactory. ENDOCERVICAL CELLS: Present. Verified 02/15/05 by: Rustam Gutiérrez MD (electronic signature) 02/04/2005 1:13 PM CDT Danisha Jeffries MD LAB_1 Final Result HP CONVERSION from Last 3 Months or Most Recently Relevant to Health Maintenance Insurance [facility] [employer] * Guarantor: TING MEJIA Account Type Relation to Patient Date of Phone Billing Address Personal/Family 1960 [address] [place] [address] Care Teams Financial Reserve Clerk Relationship Specialty Start Date End Date Unassigned, Provider [address] [place] [address] PCP - General 09/30/22
--- OUTSIDE RECORDS SUMMARY | 2025-02-20 15:20 | XMS_ITS | Encounter Summary ---
Author Organization [place] Address [address] [place] [address] Care Team Providers Care Wireline Field Operator Name Role Phone [facility] Pro vider Khushbu Jain RN Unavailable Unavailable Carmen Menon MD Unavailable +- [phone] Tayler Courtney MD PhD Unavailable [phone] Carmen Menon MD Unavailable + [phone] Tayler Courtney MD PhD Unavailable [phone] Jayne Sumner [facility] Unavailable Unavailable Encounter Details Date Type Department Care Team (Latest Contact Info) Description 01/28/2025 Travel Social History Tobacco Use Types Packs/Day Years [...] Sex Assigned at Female 05/03/2024 7:08 AM OPTICIAN APPRENTICE DISPENSING Legal Sex Female 3:27 AM OPTICIAN APPRENTICE DISPENSING Gender Identity Female 05/03/2024 7:08 AM OPTICIAN APPRENTICE DISPENSING Sexual Orientation Not on file documented as of this encounter Plan of Treatment Upcoming Encounters Date Type Department Care Team (Late st Contact Info) Description 04/07/2025 3:00 PM CDT Ancillary Procedure [facility] MRI [place] 909 [facility] 1st [place] [phone] Carmen Menon MD [address] [place] [address] [phone] 04/07/2025 4:30 PM CDT [facility]cology [facility] [address] [place] [phone] Carmen Menon MD [address] [place] [address] 370015 04/10/2025 11:00 AM CDT Office Visit [facility] Radiation Oncology 500 [facility], 1st [place] [phone] Tayler Courtney MD PhD [address] [place] [address] 880495 documented as of this encounter Goals Goal [...] documented as of this encounter Care Teams Wireline Field Operator Relationship Specialty Start Date End Date [facility] [address] [place] [address] PCP - General 08/15/23 Khushbu Jain, RN Specialty Morals Squad Police Officer Hematology & Oncology 09/04/23 Carmen Menon MD 909 [place], [place] 140[address] Neurology 09/04/23 Tayler Courtney MD PhD [address] [place] [address] [phone] Radiation Oncology 09/04/23 Carmen Menon MD [address] [place] [address] 736555 Assigned Neuroscience Provider 09/16/23 Tayler Courtney MD PhD [address] [place] [address] [phone] Assigned Cancer Care Provider 10/17/23 Jayne Sumner [facility] Pharmacist 11/07/23 documented as of this encounter
--- OUTSIDE RECORDS SUMMARY | 2025-02-20 15:20 | XMS_ITS | Encounter Summary ---
Author Organization [place] Address [address] [place] [address]. [place] [address] Care Team Providers Care Recreation Engineer Name Role Phone Clinic, [place] [facility] Pro vider Khushbu Jain RN Unavailable Unavailable Carmen Menon MD Unavailable + [phone] Tayler Courtney MD PhD Unavailable [phone] Carmen Menon MD Unavailable + [phone] Tayler Courtney MD PhD Unavailable [phone] Jayne Sumner [facility] Unavailable Unavailable Encounter Details Date Type Department Care Team (Late st Contact Info) Description 03/14/2024 [facility] Radiation Oncology [address] [facility], 1st [place] [address] Jarrell Keith Social History Tobacco Use Types [...] Sex Assigned at Female 05/03/2024 7:08 AM EXECUTIVE PASTRY CHEF Legal Sex Female 3:27 AM EXECUTIVE PASTRY CHEF Gender Identity Female 05/03/2024 7:08 AM EXECUTIVE PASTRY CHEF Sexual Orientation Not on file documented as of this encounter Plan of Treatment Upcoming Encounters Date Type Department Care Team (Late st Contact Info) Description 04/07/2025 3:00 PM CDT Ancillary Procedure [facility] MRI [place] 909 [facility] 1st [place] [phone] Carmen Menon MD [address] [place] [address] 04/07/2025 4:30 PM CDT Oncology Visit [facility] [address] [place] [phone] Carmen Menon MD [address] [place] [address] 04/10/2025 11:00 AM CDT Office Visit [facility] Radiation Oncology 500 [facility], 1st [place] [phone] Tayler Courtney MD PhD 500 [place], [place] 386325 documented as of this encounter Goals Goal [...] documented as of this encounter Care Teams Recreation Engineer Relationship Specialty Start Date End Date Clinic, [facility] [address] [place] [address] PCP - General 08/15/23 Khushbu Jain, RN Specialty Splicer Apprentice Hematology & Oncology 09/04/23 Carmen Menon MD 909 [place], [place] 754[address] Neurology 09/04/23 Tayler Courtney MD PhD [address] [place] [address] Radiation Oncology 09/04/23 Carmen Menon MD 909 [place], [place] 408355 Assigned Neuroscience Provider 09/16/23 Tayler Courtney MD PhD [address] [place] [address] Assigned Cancer Care Provider 10/17/23 Jayne Sumner [facility] Pharmacist 11/07/23 documented as of this encounter
--- OUTSIDE RECORDS SUMMARY | 2025-02-20 15:20 | XMS_ITS | Encounter Summary ---
Author Organization [facility] Address [address] [place] [address] Care Team Providers Care Network Systems Integrator Name Role Phone Clinic, [facility] Pro vider Khushbu Jain RN Unavailable Unavailable Carmen Menon MD Unavailable + [phone] Tayler Courtney MD PhD Unavailable +[phone] Carmen Menon MD Unavailable + [phone] Tayler Courtney MD PhD Unavailable [phone] Jayne Sumner [facility] Unavailable Unavailable Encounter Details Date Type Department Care Team (Late st Contact Info) Description 08/23/2024 [facility] Medical Advice [facility] [address] [place] [phone] Carmen Menon MD [address] [place] [address] Social History Tobacco Use Types Packs/Day Years [...] Sex Assigned at Female 05/03/2024 7:08 AM CELL GENETICIST Legal Sex Female 3:27 AM CELL GENETICIST Gender Identity Female 05/03/2024 7:08 AM CELL GENETICIST Sexual Orientation Not on file documented as of this encounter Plan of Treatment Upcoming Encounters Date Type Department Care Team (Late st Contact Info) Description 04/07/2025 3:00 PM CDT Ancillary Procedure [facility] 9[address] [facility] 1st [place] [phone] Carmen Menon MD [address] [place] [address] 04/07/2025 4:30 PM CDT Oncology Visit [facility] [address] [place] [phone] Carmen Menon MD [address] [place] [address] [phone] 04/10/2025 11:00 AM CDT Office Visit [facility] Radiation Oncology 500 [facility], [address]st [place] [phone] Tayler Courtney MD PhD [address] [place] [address] documented as of this encounter Goals Goal [...] documented as of this encounter Care Teams Network Systems Integrator Relationship Specialty Start Date End Date Clinic, [facility] [id number] [place] [address] PCP - General 08/15/23 Khushbu Jain, RN Specialty Supervisor Files Hematology & Oncology 09/04/23 Carmen Menon MD [address] [place] [address] Neurology 09/04/23 Tayler Courtney MD PhD [address] [place] [address] Radiation Oncology 09/04/23 Carmen Menon MD [address] [place] [address] Assigned Neuroscience Provider 09/16/23 Tayler Courtney MD PhD 500 [place] [address] Assigned Cancer Care Provider 10/17/23 Jayne Sumner, [facility] Pharmacist 11/07/23 documented as of this encounter
--- OUTSIDE RECORDS SUMMARY | 2025-02-20 15:20 | XMS_ITS | Clinical Summary ---
Author Organization [place] Address [address] [place] [address] Care Team Providers Care Brand Manager Name Role Phone [facility] Pro vider Khushbu Jain RN Unavailable Unavailable Carmen Menon MD Unavailable + [phone] Tayler Courtney MD PhD Unavailable [phone] Carmen Menon MD Unavailable + [phone] Tayler Courtney MD PhD Unavailable [phone] Jayne Sumner [facility] Unavailable Unavailable Allergies No known active allergies Medications escitalopram (LEXAPRO) 20 MG tablet Take 20 mg by mouth daily Active ondansetron (ZOFRAN) 4 MG tabletIndicati ons:Oligodendr oglioma, WHO grade II (H) Take 1 tablet (4 mg) by mouth every evening . Take 30-60 minutes prior to temozolomide. 30 tablet 5 4 Active Additional Information Patient not taking.Reported on 01/28/2025 vitamin C (ASCORBIC ACID) 100 MG tablet Take 100 mg by mouth daily Active PHEXXI 1.8-1-0.4 % GEL INSERT 1 APPLICATORFUL VAGINALLY WITHIN 1 HOUR BEFORE EACH ACT OF VAGINAL INTERCOURSE 3 Active IRON-FOLIC ACID PO Take 1 mL by mouth daily Daily [employer] Iron for Women + Folic Acid (1 mL has 9 mg of iron and 400 mcg folic acid) Active levETIRAcetam (KEPPRA) 1000 MG tabletIndicati ons:Brain mass Take 1 tablet (1,000 mg) by mouth 2 times daily. 180 tablet 1 Active triamcinolone (KENALOG) 0.1 % external creamIndicatio ns:Hives Apply topically 2 times daily. 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 Encounters Date Type Department Care Team Description 01/28/2025 5:35 PM CDT Office Visit [facility] [place] [address] [place] [address] Violetta Dorsey PA-C Hives (Primary Dx) 01/28/2025 Travel 12/19/2024 MyC Medical Advice [facility] Radiation Oncology [address] [facility], 1st [place] [phone] Carmen Luis RN 12/09/2024 MyC Medical Advice [facility] [address] [place] [phone] Jarrell Keith 12/06/2024 4:30 PM CDT Oncology Visit [facility] [address] [phone] Carmen Menon MD Oligodendroglioma, WHO grade II (H) (Primary Dx) 12/06/2024 2:30 PM CDT Ancillary Procedure [facility] [place] [address] [place] [address] 1st [place] [phone] Carmen Menon MD Oligodendroglioma, WHO grade II (H) 12/06/2024 Travel 12/05/2024 Documentation Only [facility] 9[address] [place] [phone] Carmen Menon MD 12/03/2024 Travel 11/21/2024 Refill [facility] [address] [place] [phone] Carmen Menon MD Refill Request from Last 3 Months Family History Medical History Relation Comments Prostate Cancer Father Brain Tumor No family hx of Relation Status Comments Father Social History Tobacco Use Types Packs/Day Years Used Date Smoking Tobacco: Never Passive Smoke Exposure: Never Tobacco Cessation:Counseling Given: Not Answered Alcohol Use Standard Drinks/Week Comments No 0 (1 standard drink = 0.6 oz pur e alcohol) PHQ-2 Answer Date Recorded PHQ-2 Score 0 12/06/2024 Adolescent Education Answer Date Record ed Getting School Help Needed Not on file 08/15 Comments No Sex and Gender Information Value Date Recorded Sex Assigned at Female 05/03/2024 7:08 AM WEB DESIGN INSTRUCTOR Legal Sex Female 3:27 AM WEB DESIGN INSTRUCTOR Gender Identity Female 05/03/2024 7:08 AM WEB DESIGN INSTRUCTOR Sexual Orientation Not on file Last Filed Vital Signs [...] Mass Index 40.85 01/28/2025 6:05 PM CDT Plan of Treatment Upcoming Encounters Date Type Department Care Team (Late st Contact Info) Description 04/07/2025 3:00 PM CDT Ancillary Procedure [facility] MRI [address] 1st [place] [phone] Carmen Menon MD [address] [place] [address] 04/07/2025 4:30 PM CDT Oncology Visit [facility] [address] [place] [phone] Carmen Menon MD [address] [place], [place] [phone] 04/10/2025 11:00 AM CDT Office Visit [facility] Radiation Oncology 500 [facility], 1st [place] [address] Tayler Courtney MD PhD 500 [place] [address] Health Maintenance Due Date Last Done Comments ADVANCE CARE PLANNING 1984 ANNUAL REVIEW OF HM ORDERS 1984 MAMMO SCREENING 1984 YEARLY PREVENTIVE VISIT 1987 COVID-19 VACCINE (#1) 1989 HIV SCREENING 1999 HEPATITIS B VACCINE (1 of 3 - 19+ 3-dose series) 2003 PNEUMOCOCCAL VACCINE: PEDIATRICS (0 to 5 YEARS) AND AT-RISK PATIENTS (6 to 49 YEARS) (1 of 2 - PCV) 2003 ZOSTER VACCINE (1 of 2) 2003 PAP 03/14/2019 03/14/2016 LIPID 2024 INFLUENZA VACCINE (#1) 2025 04/23/2019 DIABETES SCREENING 07/26/2027 07/26/2024, 0 07/12/2024, 06/14/2024, Additional history exists DTAP/TDAP/TD VACCINE (2 - Td or Tdap) 10/10/2029 10/11/2019 HEPATITIS C SCREENING Completed 07/10/2012 PHQ-2 (once per calendar year) Completed 12/06/2024, 09/07/2023 HPV VACCINE (No Doses Required) Completed MENINGITIS VACCINE Aged Out No longer eligible based on patient's age to complete this topic Goals Goal Patient Goal Type Associated Problems [...] MyC ECC SURG ENROLL No [employer] Implanted Type Area Fish Technologist Device Identifier Shelf Expiration Date Model / Serial / Lot Imp Scr Syn Matrix Low Pro 1.5x04mm Self Drill .104.01 - [id number] Implanted:Qty: 11 on 08/23/2023 by Rustam Macdonald MD at [facility] Metallic Hardware/An chor Left: Cranial SYNTHES-STRATEC 10 4.01 / / NA Imp Plate Syn Jonas Hole Cover 17mm .023 - [id number] Implanted:Qty: 2 on 08/23/2023 by Rustam Macdonald MD at [facility] Metallic Hardware/An chor Left: Cranial [employer]ES-STRATEC . 3 / / NA Imp Plate Syn Box 4 Hole 98r85zz .065 - [id number] Implanted:Qty: 1 on 08/23/2023 by Rustam Macdonald MD at [facility] Metallic Hardware/An chor Left: Cranial SYNTHES-STRATEC .06 5 / / NA Graft Duragen 3x3 Id330 - [id number] Implanted:Qty: 1 on 08/23/2023 by Rustam Macdonald MD at [facility] Other Left: Cranial [employer] 10/23/2025 [id number] / / [id number] Procedures Procedure Name Priority Date/Time Associated Diagnosis Comments MR BRAIN PERFUSION W/O & W CONTRAST Routine 12/06/2024 3:05 PM CDT Oligodendroglioma, WHO grade II (H) COMPREHENSIVE METABOLIC PANEL Routine 07/26/2024 10:28 AM WEB DESIGN INSTRUCTOR Chemotherapy-induc ed nausea and vomiting from Last 3 Months or Most Recently Relevant to Health Maintenance Results * MR Brain Perfusion wo & w Contrast (12/06/2024 3:05 PM CDT) Anatomical Region Laterality Modality Head, SUBRAD MR NEURO, UMP MR NEURO, RAD MR Magnetic Resonance Impressions 12/06/2024 4:44 PM CDT Impression: Stable left frontal resection cavity with little interval change since 07/29/2024. Slow increase in bifrontal parenchymal T2 hyperintensity since 04/29/2024 most likely related to posttreatment change. Recommend continued imaging surveillance. HARIS BAKER MD Narrative 12/06/2024 4:44 PM CDT MR BRAIN PERFUSION W/O & W CONTRAST 12/06/2024 3:05 PM Provided History: Oligodendroglioma, WHO grade II (H). ICD-10: Oligodendroglioma, WHO grade II (H) Comparison: Brain MRI 07/29/2024. Brain MRI 04/29/2024. Technique: Multiplanar T1-weighted, axial FLAIR, and susceptibility images were obtained without intravenous contrast. Following intravenous gadolinium-based contrast administration, axial T2-weighted, diffusion, and T1-weighted images (in multiple planes) were obtained. Dynamic postcontrast images of the brain were also obtained. Contrast: 10 cc Gadavist IV. Findings: Anterosuperior left frontal resection cavity with surrounding parenchymal T2 FLAIR hyperintensity. The degree of T2 FLAIR hyperintensity is comparable to 07/29/2024 although slightly increased since 04/29/2024. No associated parenchymal postcontrast enhancement. Unchanged pachymeningeal thickening and enhancement deep to the craniotomy defect. No mass effect or midline shift. No hydrocephalus. Normal major vascular intracranial flow-voids. No abnormal elevated relative cerebral blood volume. Minimal paranasal sinus mucosal thickening. The orbits are grossly unremarkable. Procedure Note Haris Baker MD - 12/06/2024 MR BRAIN PERFUSION W/O & W CONTRAST 12/06/2024 3:05 PM Provided History: Oligodendroglioma, WHO grade II (H). ICD-10: Oligodendroglioma, WHO grade II (H) Comparison: Brain MRI 07/29/2024. Brain MRI 04/29/2024. Technique: Multiplanar T1-weighted, axial FLAIR, and susceptibility images were obtained without intravenous contrast. Following intravenous gadolinium-based contrast administration, axial T2-weighted, diffusion, and T1-weighted images (in multiple planes) were obtained. Dynamic postcontrast images of the brain were also obtained. Contrast: 10 cc Gadavist IV. Findings: Anterosuperior left frontal resection cavity with surrounding parenchymal T2 FLAIR hyperintensity. The degree of T2 FLAIR hyperintensity is comparable to 07/29/2024 although slightly increased since 04/29/2024. No associated parenchymal postcontrast enhancement. Unchanged pachymeningeal thickening and enhancement deep to the craniotomy defect. No mass effect or midline shift. No hydrocephalus. Normal major vascular intracranial flow-voids. No abnormal elevated relative cerebral blood volume. Minimal paranasal sinus mucosal thickening. The orbits are grossly unremarkable. Impression: Stable left frontal resection cavity with little interval change since 07/29/2024. Slow increase in bifrontal parenchymal T2 hyperintensity since 04/29/2024 most likely related to posttreatment change. Recommend continued imaging surveillance. HARIS BAKER MD Carmen Menon MD [facility] MRI ORDERABLES F inal Result * Comprehensive metabolic panel (07/26/2024 10:28 AM WEB DESIGN INSTRUCTOR) Sodium 141 135 - 145 mmol/L 07/27/2024 1:33 AM WEB DESIGN INSTRUCTOR [facility] Potassium 4.2 3.4 - 5.3 mmol/L 07/27/2024 1:33 AM WEB DESIGN INSTRUCTOR [facility] Carbon Dioxide (CO2) 26 22 - 29 mmol/L 07/27/2024 1:33 AM WEB DESIGN INSTRUCTOR [facility] Anion Gap 8 7 - 15 mmol/L 07/27/2024 1:33 AM WEB DESIGN INSTRUCTOR [facility] Urea Nitrogen 11.3 6.0 - 20.0 mg/dL 07/27/2024 1:33 AM WEB DESIGN INSTRUCTOR [facility] Creatinine 0.69 0.51 - 0.95 mg/dL 07/27/2024 1:33 AM WEB DESIGN INSTRUCTOR [facility] GFR Estimate >90 >60 mL/min/1.7 3m2 07/27/2024 1:33 AM WEB DESIGN INSTRUCTOR [facility] Comment:eGFR calculated 2020 CKD-EPI equation. Calcium 9.3 8.8 - 10.4 mg/dL 07/27/2024 1:33 AM WEB DESIGN INSTRUCTOR [facility] Chloride 107 98 - 107 mmol/L 07/27/2024 1:33 AM WEB DESIGN INSTRUCTOR [facility] Glucose 77 70 - 99 mg/dL 07/27/2024 1:33 AM WEB DESIGN INSTRUCTOR [facility] Alkaline Phosphatase 89 40 - 150 U/L 07/27/2024 1:33 AM WEB DESIGN INSTRUCTOR [facility] AST 16 0 - 45 U/L 07/27/2024 1:33 AM WEB DESIGN INSTRUCTOR [facility] ALT 13 0 - 50 U/L 07/27/2024 1:33 AM WEB DESIGN INSTRUCTOR [facility] Protein Total 6.6 6.4 - 8.3 g/dL 07/27/2024 1:33 AM WEB DESIGN INSTRUCTOR [facility] Albumin 4.0 3.5 - 5.2 g/dL 07/27/2024 1:33 AM WEB DESIGN INSTRUCTOR [facility] Bilirubin Total 0.2 <=1.2 mg/dL 07/27/2024 1:33 AM WEB DESIGN INSTRUCTOR [facility] Blood BLOOD SPECIMEN / Unknown Venipuncture / Unknown 07/26/2024 10:28 AM WEB DESIGN INSTRUCTOR 07/26/2024 10:28 AM WEB DESIGN INSTRUCTOR Carmen Menon MD LAB - BLOOD ORDERABL ES Final Result [facility] [place] [facility] 500 [facility], Room [address] [place] [phone] from Last 3 Months or Most Recently Relevant to Health Maintenance Additional Health Concerns Active Problems Noted Date Diagnosed Date MyC ECC SURG ENROLL 08/18/2023 Insurance [facility] Advance Directives For more information, please contact: [phone] * Full Code (Latest Code Status on File) Date Activated Date Inactivated Comments 08/24/2023 9:55 AM 08/26/2023 2:25 PM All basic and advanced life-sustaining interventions are performed as appropriate Question Answer Comments Code status determined by: Discussion with luna nt/ legal decision maker * Full Code Date Activated Date Inactivated Comments 08/16/2023 10:20 PM 08/18/2023 3:12 PM All basic a nd advanced life-sustaining interventions are performed as appropriate Question Answer Comments Code status determined by: Discussion with luna nt/ legal decision maker Care Teams Brand Manager Relationship Specialty Start Date End Date Clinic, [facility] [address] [place] [address] PCP - General 08/15/23 Khushbu Jain, RN Specialty Christian Science Practitioner Hematology & Oncology 09/04/23 Carmen Menon MD [address] [place] [address] Neurology 09/04/23 Tayler Courtney MD PhD [address] [place] [address] Radiation Oncology 09/04/23 Carmen Menon MD [address] [place] [address] 113645 Assigned Neuroscience Provider 09/16/23 Tayler Courtney MD PhD [address] [place] [address] Assigned Cancer Care Provider 10/17/23 Jayne Sumner [facility] Pharmacist 11/07/23
--- OUTSIDE RECORDS SUMMARY | 2025-02-20 15:20 | XMS_ITS | Encounter Summary ---
Author Organization [place] Address [address] [place] [address]. [place] [address] Care Team Providers Care Team Assembly Line Machine Operator Name Role Phone Clinic, [facility] Pro vider Khushbu Jain RN Unavailable Unavailable Carmen Menon MD Unavailable + [phone] Tayler Courtney MD PhD Unavailable [phone] Carmen Menon MD Unavailable + [phone] Tayler Courtney MD PhD Unavailable [phone] Jayne Sumner [facility] Unavailable Unavailable Encounter Details Date Type Department Care Team (Late st Contact Info) Description 02/22/2024 MyC Medical Advice [facility] [address] [place] [phone] Maria Byrd RP XXX RESIGNED XXX [address] [place], [place] [phone] Social History Tobacco Use Types Packs/Day Years [...] Sex Assigned at Female 05/03/2024 7:[address] TESTER Legal Sex Female 3:[address] Gender Identity Female 05/03/2024 7:[address] TESTER Sexual Orientation Not on file documented as of this encounter Plan of Treatment Upcoming Encounters Date Type Department Care Team (Late st Contact Info) Description 04/07/2025 3:00 PM CDT Ancillary Procedure [facility] 909 [facility] 1st [place] [phone] Carmen Menon MD [address] [place] [address] 04/07/2025 4:30 PM CDT Oncology Visit [facility] [address] [place] [phone] Carmen Menon MD [address] [place] [address] [phone] 04/10/2025 11:00 AM CDT Office Visit [facility] Radiation Oncology 500 [facility], 1st [place] [phone] Tayler Courtney MD PhD [address] [place] [address] documented as of this encounter Goals Goal [...] documented as of this encounter Care Teams Team Assembly Line Machine Operator Relationship Specialty Start Date End Date Clinic, [facility] [id number] [place] [address] PCP - General 08/15/23 Khushbu Jain, RN Specialty Corporate Legal Intern Hematology & Oncology 09/04/23 Carmen Menon MD [address] [place] [address] Neurology 09/04/23 Tayler Courtney MD PhD [address] [place] [address] Radiation Oncology 09/04/23 Carmen Menon MD [address] [place] [address] Assigned Neuroscience Provider 09/16/23 Tayler Courtney MD PhD [address] [place] [address] Assigned Cancer Care Provider 10/17/23 Jayne Sumner, [facility] Pharmacist 11/07/23 documented as of this encounter
--- OUTSIDE RECORDS SUMMARY | 2025-02-20 15:20 | XMS_ITS | Encounter Summary ---
Author Organization [place] Address [address] [place] [address]. [place] [address] Care Team Providers Care Rn Delivery Name Role Phone Clinic, [facility] Pro vider Khushbu Jain RN Unavailable Unavailable Carmen Menon MD Unavailable + [phone] Tayler Courteny MD PhD Unavailable [phone] Carmen Menon MD Unavailable + [phone] Tayler Courtney MD PhD Unavailable [phone] Jayne Sumner [facility] Unavailable Unavailable Encounter Details Date Type Department Care Team (Late st Contact Info) Description 11/14/2023 MyC Medical Advice [facility] Radiation Oncology [address] [facility], 1st [place] [phone] More De Anda, RN Social History Tobacco Use Types Packs/Day [...] Sex Assigned at Female 05/03/2024 7:08 AM PRODUCT INSPECTION SUPERVISOR Legal Sex Female 3:27 AM PRODUCT INSPECTION SUPERVISOR Gender Identity Female 05/03/2024 7:08 AM PRODUCT INSPECTION SUPERVISOR Sexual Orientation Not on file documented as of this encounter Plan of Treatment Upcoming Encounters Date Type Department Care Team (Late st Contact Info) Description 04/07/2025 3:00 PM CDT Ancillary Procedure [facility] MRI [place] 909 [facility] 1st [place] [phone] Carmen Menon MD [address] [place] [address] 04/07/2025 4:30 PM CDT Oncology Visit [facility] [address] [place] [phone] Carmen Menon MD [address] [place] [address] 04/10/2025 11:00 AM CDT Office Visit [facility] Radiation Oncology 500 [facility], 1st [place] [phone] Tayler Courtney MD PhD [address] [place] [address] 385385 documented as of this encounter Goals Goal Patient Goal Type Associated Problems Recent Progress Patient-Stated? Author Medical General Yes hKushbu Jain, RN Note: Goal Statement: I will [...] documented as of this encounter Care Teams Rn Delivery Relationship Specialty Start Date End Date Clinic, [facility] [place] [address] [place] [address] PCP - General 08/15/23 Khushbu Jain, RN Specialty Digital Sales Representative Hematology & Oncology 09/04/23 Carmen Menon MD [address] [place], [place] [phone] Neurology 09/04/23 Tayler Courtney MD PhD [address] [place] [address] Radiation Oncology 09/04/23 Carmen Menon MD [address] [place], [place] [phone] Assigned Neuroscience Provider 09/16/23 Tayler Courtney MD PhD 500 [place] [address] Assigned Cancer Care Provider 10/17/23 Jayne Sumner, [facility] Pharmacist 11/07/23 documented as of this encounter
--- OUTSIDE RECORDS SUMMARY | 2025-02-20 15:20 | XMS_ITS | Encounter Summary ---
Author Organization [place] Address [address] [place] [address]. [place] [address] Care Team Providers Care Boat Hand Name Role Phone Clinic, [facility] [place] [facility] Pro vider Khushbu Jain RN Unavailable Unavailable Carmen Menon MD Unavailable + [phone] Tayler Courtney MD PhD Unavailable [phone] Carmen Menon MD Unavailable + [phone] Tayler Courtney MD PhD Unavailable [phone] Jayne Sumner [facility] Unavailable Unavailable Encounter Details Date Type Department Care Team (Late st Contact Info) Description 08/23/2024 MyC Medical Advice [facility] 9 [place] [address] Shira Mantilla, RN Social History Tobacco Use Types Packs/Day [...] Sex Assigned at Female 05/03/2024 7:08 AM STUDENT MINISTRIES DIRECTOR Legal Sex Female 3:27 AM STUDENT MINISTRIES DIRECTOR Gender Identity Female 05/03/2024 7:08 AM STUDENT MINISTRIES DIRECTOR Sexual Orientation Not on file documented as of this encounter Plan of Treatment Upcoming Encounters Date Type Department Care Team (Late st Contact Info) Description 04/07/2025 3:00 PM CDT Ancillary Procedure [facility] Imaging [facility] 909 [facility] 1st [place] [phone] Carmen Menon MD [address] [place] [address] 04/07/2025 4:30 PM CDT Oncology Visit [facility] [address] [place] [phone] Carmne Menon MD [address] [place] [address] 9[address] 04/10/2025 11:00 AM CDT [facility] 500 [facility], 1st [place] [phone] Tayler Courtney MD PhD [address] [place] [address] 957065 documented as of this encounter Goals Goal Patient Goal Type Associated Problems Recent Progress Patient-Stated? Author Medical General Yes Khushbu Jain RN Note: Goal Statement: I will follow [...] documented as of this encounter Care Teams Boat Hand Relationship Specialty Start Date End Date Clinic, [facility] [place] [address] [place] [address] PCP - General 08/15/23 Khushbu Jain, RN Specialty Gas Appliance Installer Hematology & Oncology 09/04/23 Carmen Menon MD 909 [place], [place] 508115 Neurology 09/04/23 Tayler Courtney MD PhD [address] [place] [address] Radiation Oncology 09/04/23 Carmen Menon MD 909 [place], [place] 747735 Assigned Neuroscience Provider 09/16/23 Tayler Courtney MD PhD 500 [place] [address] Assigned Cancer Care Provider 10/17/23 Jayne Sumner [facility] Pharmacist 11/07/23 documented as of this encounter
--- OUTSIDE RECORDS SUMMARY | 2025-02-20 15:20 | XMS_ITS | Encounter Summary ---
Author Organization [place] Address [address] [place] [address]. [place] [address] Care Team Providers Care Demand Planning Manager Name Role Phone Clinic, [facility] [place] [facility] Pro vider Khushbu Jain RN Unavailable Unavailable Carmen Menon MD Unavailable +[phone]- [phone] Tayler Courtney MD PhD Unavailable [phone] Carmen Menon MD Unavailable + [phone] Tayler Courtney MD PhD Unavailable [phone] Jayne Sumner [facility] Unavailable Unavailable Encounter Details Date Type Department Care Team (Late st Contact Info) Description 12/09/2024 [facility] 9 [place] [address] Jarrell Keith Social History Tobacco [...] Sex Assigned at Female 05/03/2024 7:08 AM CLOTH FEEDER Legal Sex Female 3:27 AM CLOTH FEEDER Gender Identity Female 05/03/2024 7:08 AM CLOTH FEEDER Sexual Orientation Not on file documented as of this encounter Plan of Treatment Upcoming Encounters Date Type Department Care Team (Late st Contact Info) Description 04/07/2025 3:00 PM CDT Ancillary Procedure [facility] [place] [facility] 909 [facility] 1st [place] [phone] Carmen Menon MD [address] [place] [address] 043475 04/07/2025 4:30 PM CDT Oncology Visit [facility] 909 [place] [phone] Carmen Menon MD [address] [place] [address] 255405 04/10/2025 11:00 AM CDT Office Visit [facility] Radiation Oncology 500 [facility], 1st [place] [phone] Tayler Courtney MD PhD [address] [place] [address] 890555 documented as of this encounter Goals Goal [...] documented as of this encounter Care Teams Demand Planning Manager Relationship Specialty Start Date End Date [facility] [address] [place] [address] PCP - General 08/15/23 Khushbu Jain, RN Specialty Retail Director Hematology & Oncology 09/04/23 Carmen Menon MD 909 [place] [address] Neurology 09/04/23 Tayler Courtney MD PhD [address] [place] [address] Radiation Oncology 09/04/23 Carmen Menon MD 909 [place] [address] Assigned Neuroscience Provider 09/16/23 Tayler Courtney MD PhD 500 [place] [address] Assigned Cancer Care Provider 10/17/23 Jayne Sumner [facility] Pharmacist 11/07/23 documented as of this encounter
--- OUTSIDE RECORDS SUMMARY | 2025-02-20 15:20 | XMS_ITS | Encounter Summary ---
Author Organization [place] Address [address] [place] [address] Care Team Providers Care Telehealth Nurse Educator Name Role Phone [facility] Pro vider Khushbu Jain RN Unavailable Unavailable Carmen Menon MD Unavailable + [phone] Tayler Courtney MD PhD Unavailable +[phone] Carmen Menon MD Unavailable + [phone] Tayler Courtney MD PhD Unavailable [phone] Jayne Sumner [facility] Unavailable Unavailable Encounter Details Date Type Department Care Team (Late st Contact Info) Description 07/17/2024 [facility] Insurance Verification [place] Social History Tobacco Use Types Packs/Day Years [...] Sex Assigned at Female 05/03/2024 7:08 AM SAGGER SOAK Legal Sex Female 3:27 AM SAGGER SOAK Gender Identity Female 05/03/2024 7:08 AM SAGGER SOAK Sexual Orientation Not on file documented as of this encounter Plan of Treatment Upcoming Encounters Date Type Department Care Team (Late st Contact Info) Description 04/07/2025 3:00 PM CDT Ancillary Procedure [facility] [place] 909 [facility] 1st [place] [phone] Carmen Menon MD [address] [place] [address] 04/07/2025 4:30 PM CDT Oncology [facility] 909 [place] [phone] Carmen Menon MD [address] [place] [address] 976965 04/10/2025 11:00 AM CDT Office Visit [facility] Radiation Oncology 500 [facility], 1st [place] [phone] Tayler Courtney MD PhD [address] [place] [address] 891965 documented as of this encounter Goals Goal [...] documented as of this encounter Care Teams Telehealth Nurse Educator Relationship Specialty Start Date End Date Clinic, [facility] [place] [address] [place] [address] PCP - General 08/15/23 Khushbu Jain, RN Specialty Founding Partner Hematology & Oncology 09/04/23 Carmen Menon MD [address] [place] [address] 292875 Neurology 09/04/23 Tayler Courtney MD PhD [address] [place] [address] 172235 Radiation Oncology 09/04/23 Carmen Menon MD [address] [place] [address] 530225 Assigned Neuroscience Provider 09/16/23 Tayler Courtney MD PhD 500 [place], [place] 901495 Assigned Cancer Care Provider 10/17/23 Jayne Sumner, [facility] Pharmacist 11/07/23 documented as of this encounter
--- OUTSIDE RECORDS SUMMARY | 2025-02-20 15:20 | XMS_ITS | Encounter Summary ---
Author Organization [place] Address [address] [place] [address] Care Team Providers Care Funeral Prearrangement Counselor Name Role Phone Clinic, [place] [facility] Pro vider Khushbu Jain RN Unavailable Unavailable Carmen Menon MD Unavailable +[phone]- [phone] Tayler Courtney MD PhD Unavailable [phone] Carmen Menon MD Unavailable + [phone] Tayler Courtney MD PhD Unavailable [phone] Jayne Sumner [facility] Unavailable Unavailable Encounter Details Date Type Department Care Team (Late st Contact Info) Description 11/02/2023 MyC Medical Advice [facility] [address] [place] [phone] Radha King, [facility] Social History Tobacco Use Types Packs/Day Years [...] Sex Assigned at Female 05/03/2024 7:08 AM PROCUREMENT TECHNICIAN Legal Sex Female 3:27 AM PROCUREMENT TECHNICIAN Gender Identity Female 05/03/2024 7:08 AM PROCUREMENT TECHNICIAN Sexual Orientation Not on file documented as of this encounter Plan of Treatment Upcoming Encounters Date Type Department Care Team (Late st Contact Info) Description 04/07/2025 3:00 PM CDT Ancillary Procedure [facility] Imaging Center [facility] 909 [facility] 1st [place] [phone] Carmen Menon MD [address] [place] [address] 735325 04/07/2025 4:30 PM CDT Oncology Visit [facility] 909 [place] [phone] Carmen Menon MD [address] [place] [address] 600215 04/10/2025 11:00 AM CDT Office Visit [facility] Radiation Oncology 500 [facility], 1st [place] [phone] Tayler Courtney MD PhD [address] [place] [address] 087215 documented as of this encounter Goals Goal [...] documented as of this encounter Care Teams Funeral Prearrangement Counselor Relationship Specialty Start Date End Date Clinic, [facility] [address] [place] [address] PCP - General 08/15/23 Khushbu Jain, RN Specialty Director Chemistry Hematology & Oncology 09/04/23 Carmen Menon MD [address] [place] [address] 280605 Neurology 09/04/23 Tayler Courtney MD PhD 500 [place] [address] Radiation Oncology 09/04/23 Carmen Menon MD [address] [place] [address] 837335 Assigned Neuroscience Provider 09/16/23 Tayler Courtney MD PhD 500 [place] [address] Assigned Cancer Care Provider 10/17/23 Jayne Sumner [facility] Pharmacist 11/07/23 documented as of this encounter
--- OUTSIDE RECORDS SUMMARY | 2025-02-20 15:20 | XMS_ITS | Encounter Summary ---
Author Organization [place] Address [address] [place] [address]. [place] [address] Care Team Providers Care Air Box Tester Name Role Phone Clinic, [facility] [place] [facility] Pro vider Khushbu Jain RN Unavailable Unavailable Carmen Menon MD Unavailable + [phone] Tayler Courtney MD PhD Unavailable [phone] Carmen Menon MD Unavailable + [phone] Tayler Courtney MD PhD Unavailable [phone] Jayne Sumner [facility] Unavailable Unavailable Encounter Details Date Type Department Care Team (Late st Contact Info) Description 02/28/2024 MyC Medical Advice [facility] 909 [place] [address] Brionna Gonzalez APRN [facility] 500 [place] [address] Social History Tobacco Use Types Packs/Day [...] Sex Assigned at Female 05/03/2024 7:08 AM SUPERVISOR CEMETERY WORKERS Legal Sex Female 3:27 AM SUPERVISOR CEMETERY WORKERS Gender Identity Female 05/03/2024 7:08 AM SUPERVISOR CEMETERY WORKERS Sexual Orientation Not on file documented as of this encounter Plan of Treatment Upcoming Encounters Date Type Department Care Team (Late st Contact Info) Description 04/07/2025 3:00 PM CDT Ancillary Procedure [facility] Imaging Center [facility] [address] [facility] 1st [place] [phone] Carmne Menon MD [address] [place] [address] 04/07/2025 4:30 PM CDT Oncology Visit [facility] [address] [place] [phone] Carmen Menon MD [address] [place] [address] 04/10/2025 11:00 AM CDT Office Visit [facility] Radiation Oncology 500 [facility], 1st [place] [phone] Tayler Courtney MD PhD [address] [place] [address] documented as of this encounter Goals Goal [...] documented as of this encounter Care Teams Air Box Tester Relationship Specialty Start Date End Date Clinic, [facility] [address] [place] [address] PCP - General 08/15/23 Khushbu Jain, RN Specialty Breast Trimmer Hematology & Oncology 09/04/23 Carmen Menon MD 9 [place] [address] Neurology 09/04/23 Tayler Courtney MD PhD [address] [place] [address] Radiation Oncology 09/04/23 Carmen Menon MD [address] [place] [address] Assigned Neuroscience Provider 09/16/23 Tayler Courtney MD PhD 500 [place] [address] Assigned Cancer Care Provider 10/17/23 Jayne Sumner, [facility] Pharmacist 11/07/23 documented as of this encounter
--- OUTSIDE RECORDS SUMMARY | 2025-02-20 15:20 | XMS_ITS ---
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 Past Treatment and Therapy Plans ONCOLOGY TREATMENT Plan Name Start Date Discontinue Date Treatment Medications Discontinue Reason Plan Provider Cycles Oral ONC Brain Cancer (Oligodendrogli artur) - Temozolomide + concurrent radiation (42 Days) 09/25/2023 11/09/2023 Temozolomide (TEMODAR) Caps Therapy Complete Carmen Menon MD Treatment not started
--- OUTSIDE RECORDS SUMMARY | 2025-02-20 15:20 | XMS_ITS | Encounter Summary ---
Author Organization [place] Address [address] [place] [address]. [place] [address] Care Team Providers Care Cell Feed Department Supervisor Name Role Phone Clinic, [facility] [place] Primary Care Pro vider Khushbu Jain RN Unavailable Unavailable Carmen Menon MD Unavailable +[phone] Tayler Courtney MD PhD Unavailable +[phone] Carmen Menon MD Unavailable + [phone] Tayler Courtney MD PhD Unavailable +[phone] Jayne Sumner [facility] Unavailable Unavailable Encounter Details Date Type Department Care Team (Late st Contact Info) Description 01/04/2024 [facility] Adv[facility] 9 [place] [address] Dania Seo Social History Tobacco Use Types Packs/Day Years [...] Assigned at Female 05/03/2024 7:08 AM COMMERCIAL COLLECTIONS SPECIALIST Legal Sex Female 3:27 AM COMMERCIAL COLLECTIONS SPECIALIST Gender Identity Female 05/03/2024 7:08 AM COMMERCIAL COLLECTIONS SPECIALIST Sexual Orientation Not on file documented as of this encounter Plan of Treatment Upcoming Encounters Date Type Department Care Team (Late st Contact Info) Description 04/07/2025 3:00 PM CDT Ancillary Procedure [facility] Imaging Center [facility] 909 [facility] 1st [place] [phone] Carmen Menon MD [address] [place] [address] 873705 04/07/2025 4:30 PM CDT Oncology Visit [facility] 909 [place] [phone] Carmen Menon MD [address] [place] [address] 807005 04/10/2025 11:00 AM CDT Office Visit [facility] Radiation Oncology 500 [facility], 1st [place] [phone] Tayler Courtney MD PhD [address] [place] [address] 277225 documented as of this encounter Goals Goal [...] documented as of this encounter Care Teams Cell Feed Department Supervisor Relationship Specialty Start Date End Date [facility], [facility] [address] [place] [address] PCP - General 08/15/23 Khushbu Jain, RN Specialty Tire Center Manager Hematology & Oncology 09/04/23 Carmen Menon MD 909 [place] [address] Neurology 09/04/23 Tayler Courtney MD PhD [address] [place] [address] Radiation Oncology 09/04/23 Carmen Menon MD 909 [place] [address] Assigned Neuroscience Provider 09/16/23 Tayler Courtney MD PhD 500 [place] [address] Assigned Cancer Care Provider 10/17/23 Jayne Sumner [facility] Pharmacist 11/07/23 documented as of this encounter
--- OUTSIDE RECORDS SUMMARY | 2025-02-20 15:20 | XMS_ITS | Encounter Summary ---
Author Organization [place] Address [address] [place] [address] Care Team Providers Care Applications Engineer Manufacturing Name Role Phone [facility], [facility] [place] Primary Care Pro vider Khushbu Jain RN Unavailable Unavailable Carmen Menon MD Unavailable + [phone] Tayler Courtney MD PhD Unavailable +[phone] Carmen Menon MD Unavailable + [phone] Tayler Courtney MD PhD Unavailable +[phone] Jayne Sumner [facility] Unavailable Unavailable Reason for Visit * Reason Onset Date Comments Refill Request 05/29/2024 Encounter Details Date Type Department Care Team (Late st Contact Info) Description 05/29/2024 Guido King [facility] [address] [place] [phone] Carmen Menon MD [address] [place] [address] Refill Request Social History Tobacco Use Types Packs/Day Years [...] on file documented as of this encounter Miscellaneous Notes * Telephone Encounter - Rashida Bettencourt RPH - 05/30/2024 8:55 AM CST Spoke to pharmacist yesterday who called for clarification on cycle length. They have the rx. ERCIAL COLLECTIONS SPECIALIST documented in this encounter Plan of Treatment Upcoming Encounters Date Type Department Care Team (Late st Contact Info) Description 04/07/2025 3:00 PM CDT Ancillary Procedure [facility] Imaging Center [facility] [address] [place] [phone] Carmen Menon MD [address] [place] [address] 04/07/2025 4:30 PM CDT Oncology Visit [facility] [address] [place] [phone] Carmen Menon MD [address] [place] [address] 04/10/2025 11:00 AM CDT Office Visit [facility] Radiation Oncology 500 [facility], 1st [place] [phone] Tayler Courtney MD PhD [address] [place] [address] 730065 documented as of this encounter Goals Goal [...] as of this encounter Visit Diagnoses Diagnosis Oligodendroglioma, WHO grade II (H) documented in this encounter Additional Health Concerns Active Problems Noted Date Diagnosed Date MyC ECC SURG ENROLL 08/18/2023 documented as of this encounter Care Teams Applications Engineer Manufacturing Relationship Specialty Start Date End Date Clinic, [address] [address] PCP - General 08/15/23 Khushbu Jain, RN Specialty Edge Worker Hematology & Oncology 09/04/23 Carmen Menon MD [address] [place] [address] [phone] Neurology 09/04/23 Tayler Courtney MD PhD [address] [place] [address] Radiation Oncology 09/04/23 Carmen Menon MD [address] [place] [address] Assigned Neuroscience Provider 09/16/23 Tayler Courtney MD PhD 500 [place] [address] Assigned Cancer Care Provider 10/17/23 Jayne Sumner, [facility] Pharmacist 11/07/23 documented as of this encounter
--- OUTSIDE RECORDS SUMMARY | 2025-02-20 15:21 | XMS_ITS | Encounter Summary ---
Author Organization [place] Address [address] [place] [address]. [place] [address] Care Team Providers Care Occupational Therapy Aides Teacher Name Role Phone Clinic, [place] [facility] Pro vider Khushbu Jain RN Unavailable Unavailable Carmen Menon MD Unavailable +- [phone] Tayler Courtney MD PhD Unavailable [phone] Carmen Menon MD Unavailable + [phone] Tayler Courtney MD PhD Unavailable [phone] Jayne Sumner [facility] Unavailable Unavailable Encounter Details Date Type Department Care Team (Late st Contact Info) Description 05/14/2024 MyC Medical Advice [address] [phone] Ghazala Sierra LICSW Social History Tobacco Use Types Packs/Day Years [...] Assigned at Female 05/03/2024 7:08 AM FIELD SUPPORT TECHNICIAN Legal Sex Female 3:27 AM FIELD SUPPORT TECHNICIAN Gender Identity Female 05/03/2024 7:08 AM FIELD SUPPORT TECHNICIAN Sexual Orientation Not on file documented as of this encounter Plan of Treatment Upcoming Encounters Date Type Department Care Team (Late st Contact Info) Description 04/07/2025 3:00 PM CDT Ancillary Procedure [facility] Imaging Center [facility] 909 [facility] 1st [place] [phone] Carmen Menon MD [address] [place] [address] [phone] 04/07/2025 4:30 PM CDT Oncology Visit [facility] Clinic 909 [place] [phone] Carmen Menon MD [address] [place] [address] 015725 04/10/2025 11:00 AM CDT Office Visit [facility] Radiation Oncology 500 [facility], 1st [place] [phone] Tayler Courtney MD PhD [address] [place] [address] 197845 documented as of this encounter Goals Goal [...] documented as of this encounter Care Teams Occupational Therapy Aides Teacher Relationship Specialty Start Date End Date [facility], [facility] [address] [place] [address] PCP - General 08/15/23 Khushbu Jain, RN Specialty Molding Machine Operator Helper Hematology & Oncology 09/04/23 Carmen Menon MD 909 [place] [address] Neurology 09/04/23 Tayler Courtney MD PhD [address] [place] [address] Radiation Oncology 09/04/23 Carmen Menon MD 909 [place] [address] Assigned Neuroscience Provider 09/16/23 Tayler Courtney MD PhD 500 [place] [address] Assigned Cancer Care Provider 10/17/23 Jayne Sumner [facility] Pharmacist 11/07/23 documented as of this encounter
--- OUTSIDE RECORDS SUMMARY | 2025-02-20 15:21 | XMS_ITS | Encounter Summary ---
Author Organization [place] Address [address] [place] [address]. [place] [address] Care Team Providers Care Religious Education Coordinator Name Role Phone Clinic, [facility] Primary Care Pro vider Khushbu Jain RN Unavailable Unavailable Carmen Menon MD Unavailable + [phone] Tayler Courtney MD PhD Unavailable [phone] Carmen Menon MD Unavailable + [phone] Tayler Courtney MD PhD Unavailable +[phone] Jayne Sumner [facility] Unavailable Unavailable Encounter Details Date Type Department Care Team (Late st Contact Info) Description 01/10/[address] [facility] [address] [place] [address] Rashida Bettencourt RPH [facility] [address] [place], [place] [address] [place] [address] Social History Tobacco Use Types Packs/Day Years [...] Sex Assigned at Female 05/03/2024 7:08 AM JAR FILLER Legal Sex Female 3:27 AM JAR FILLER Gender Identity Female 05/03/2024 7:08 AM JAR FILLER Sexual Orientation Not on file documented as of this encounter Plan of Treatment Upcoming Encounters Date Type Department Care Team (Late st Contact Info) Description 04/07/2025 3:00 PM CDT Ancillary Procedure [facility] 909 [facility] 1st [place] [phone] Carmen Menon MD [address] [place] [address] 04/07/2025 4:30 PM CDT Oncology Visit [facility] [address] [place] [phone] Carmen Menon MD [address] [place] [address] [phone] 04/10/2025 11:00 AM CDT Office Visit [facility] Radiation Oncology 500 [facility], 1st [place] [phone] Tayler Courtney MD PhD [address] [place] [address] documented as of this encounter Goals Goal [...] documented as of this encounter Care Teams Religious Education Coordinator Relationship Specialty Start Date End Date [facility], [address] [address] PCP - General 08/15/23 Khushbu Jain, RN Specialty Stretch Press Operator Hematology & Oncology 09/04/23 Carmen Menon MD [address] [place] [address] Neurology 09/04/23 Tayler Courtney MD PhD [address] [place] [address] Radiation Oncology 09/04/23 Carmen Menon MD [address] [place] [address] Assigned Neuroscience Provider 09/16/23 Tayler Courtney MD PhD 500 [place] [address] Assigned Cancer Care Provider 10/17/23 Jayne Sumner, [facility] Pharmacist 11/07/23 documented as of this encounter
--- OUTSIDE RECORDS SUMMARY | 2025-02-20 15:21 | XMS_ITS | Encounter Summary ---
Author Organization [place] Address [address] [place] [address] Care Team Providers Care Protective Services Case Worker Name Role Phone Clinic, [facility] [place] Primary Care Pro vider Khushbu Jain RN Unavailable Unavailable Carmen Menon MD Unavailable + [phone] Tayler Courtney MD PhD Unavailable +[phone] Carmen Menon MD Unavailable + [phone] Tayler Courtney MD PhD Unavailable [phone] Jayne Sumner [facility] Unavailable Unavailable Encounter Details Date Type Department Care Team (Late st Contact Info) Description 05/13/2024 MyC Medical Advice [facility] [address] [place] [address] Carmen Menon MD [address] [place] [address] Social History Tobacco Use Types Packs/Day [...] Sex Assigned at Female 05/03/2024 7:08 AM CHEMISTRY TECHNICAL OFFICER Legal Sex Female 3:27 AM CHEMISTRY TECHNICAL OFFICER Gender Identity Female 05/03/2024 7:08 AM CHEMISTRY TECHNICAL OFFICER Sexual Orientation Not on file documented as of this encounter Plan of Treatment Upcoming Encounters Date Type Department Care Team (Late st Contact Info) Description 04/07/2025 3:00 PM CDT Ancillary Procedure [facility] 909 [facility] 1st [place] [phone] Carmen Menon MD [address] [place] [address] 04/07/2025 4:30 PM CDT Oncology Visit [facility] [address] [place] [phone] Carmen Menon MD [address] [place] [address] 512275 04/10/2025 11:00 AM CDT Office [facility] Radiation Oncology 500 [facility], 1st [place] [phone] Tayler Courtney MD PhD [address] [place] [address] documented as of this encounter Goals Goal [...] documented as of this encounter Care Teams Protective Services Case Worker Relationship Specialty Start Date End Date Clinic, [facility] [address] [place] [address] PCP - General 08/15/23 Khushbu Jain, RN Specialty Rock Mason Apprentice Hematology & Oncology 09/04/23 Carmen Menon MD [address] [place] [address] Neurology 09/04/23 Tayler Courtney MD PhD [address] [place] [address] Radiation Oncology 09/04/23 Carmen Menon MD [address] [place] [address] Assigned Neuroscience Provider 09/16/23 Tayler Courtney MD PhD [address] [place] [address] Assigned Cancer Care Provider 10/17/23 Jayne Sumner, [facility] Pharmacist 11/07/23 documented as of this encounter
[2025-02-20 15:49] LABS: Hematocrit 22.1 % (33.0-51.0); Immature Granulocytes Abs Auto 0.01 K/uL (0.00-0.30); Immature Granulocytes Pct Auto 0.2 %; Lymphocytes Absolute Auto 1.15 K/uL (0.90-2.90); Mean Corpuscular HGB Conc 29 gm/dL (32-36); Mean Corpuscular Hemoglobin 21 pg (26-34); Mean Corpuscular Volume 74 fL (80-100); RDW Coefficient of Variation % 20.1 % (11.5-15.5); Red Blood Count 3.00 m/uL (4.00-5.20); White Blood Count* 5.23 K/uL (4.50-11.00)
[2025-02-20 16:13] LABS: Hemoglobin* 6.4 gm/dL (12.0-16.0)
[2025-02-20 16:14] LABS: Slide Review Reflex No
[2025-02-20] MEDS: TRANEXAMIC ACID 1,000 MG in 0.9 % SODIUM CHLORIDE 100 ml 100 ML 660 MG IVPB (17:15)
[2025-02-20 17:33] LABS: INR 1.06 (0.91-1.10); Prothrombin Time 14.6 Seconds
[2025-02-20] MEDS: 0.9 % SODIUM CHLORIDE 500 ML 250 ML IV (18:44)
== END 2025-02-20 23:03 | disposition home or self-care (01) ==
PROVIDERS: Family Medicine; Emergency Provider Emergency Medicine
DX: N93.9 Abnormal uterine and vaginal bleeding, unspecified (principal); D50.0 Iron deficiency anemia secondary to blood loss (chronic)
CPT/HCPCS: 36415; 36430; 85025; 85610; 85730; 86850; 86900; 86901; 86922; 99284; 99285; A9270; J7030; P9016

== ENCOUNTER 2025-03-08 11:16 | Emergency (ER) | payer OTHER, SELFPAY ==
--- OUTSIDE RECORDS SUMMARY | 2025-01-28 17:35 | XMS_ITS | Encounter Summary ---
Author Organization [facility] Address [address] [place] [address]. [place] [address] Care Team Providers Care Bilingual Office Assistant Name Role Phone Clinic, [facility] Pro vider Khushbu Jain RN Unavailable Unavailable Carmen Menon MD Unavailable + [phone] Tayler Courtney MD PhD Unavailable [phone] Carmen Menon MD Unavailable + [phone] Tayler Courtney MD PhD Unavailable [phone] Jayne Sumner [facility] Unavailable Unavailable Reason for Visit * Reason Comments Derm Problem Body rashes noticed today, itchiness, redness and spreading rapidly. No other symptoms. Encounter Details Date Type Department Care Team (Late st Contact Info) Description 01/28/2025 5:35 PM CDT Office Visit [facility] [place] [address] [place] [phone] Violetta Dorsey PA-C [address] [place] [address] Hives (Primary Dx) Social History Tobacco Use Types Packs/Day Years Used Date Smoking Tobacco: Never Passive Smoke Exposure: Never Alcohol Use Standard Drinks/Week Comments No 0 (1 standard drink = 0.6 oz pur e alcohol) PHQ-2 Answer Date Recorded PHQ-2 Score 0 12/06/2024 Adolescent Education Answer Date Record ed Getting School Help Needed Not on file 08/15 Comments No Sex and Gender Information Value Date Recorded Sex Assigned at Female 05/03/2024 7:08 AM SHOP DIRECTOR Legal Sex Female 3:27 AM SHOP DIRECTOR Gender Identity Female 05/03/2024 7:08 AM SHOP DIRECTOR Sexual Orientation Not on file documented as of this encounter Last Filed Vital Signs Vital Sign Reading Time Taken Comments Blood Pressure 118/80 01/28/2025 6:12 PM CDT Pulse 61 01/28/2025 6:05 PM CDT Temperature 36.9 C (98.4 F) 01/28/2025 6:05 PM CDT Respiratory Rate 21 01/28/2025 6:05 PM CDT Oxygen Saturation 100% 01/28/2025 6:05 PM CDT Inhaled Oxygen Concentration - - Weight 108 kg (238 lb) 01/28/2025 6:05 PM CDT Height 162.6 cm (5' 4) 01/28/2025 6:05 PM CDT Body Mass Index 40.85 01/28/2025 6:05 PM CDT documented in this encounter Patient Instructions * Attachments The following attachments cannot be sent through Care Everywhere. * Urticaria (Malagasy) documented in this encounter Progress Notes * Kush Dalal MA - 01/28/2025 5:35 PM CDT Urgent Care Clinic Visit Chief Complaint Patient presents with Derm Problem Body rashes noticed today, itchiness, redness and spreading rapidly. No other symptoms. 01/28/2025 6:11 PM Additional Questions Roomed by kush Accompanied by margret * Violetta Dorsey PA-C - 01/28/2025 5:35 PM CDT Assessment & Plan Hives Acute problem. Unclear what may have triggered them as patient does not endorse using anything new.On exam patient is in no acute distress. Vitals are stable. Patient educational information provided regarding course of symptoms. Hives appear generally improved at this time. Recommended to keep monitoring symptoms. I did send a prescription of triamcinolone cream to the pharmacy to use if OTC topical cortisone and Benadryl cream are not helping as anticipated. Close monitoring of symptoms. Follow-up if any worsening symptoms. Patient agrees with the plan. - triamcinolone (KENALOG) 0.1 % external cream Dispense: 45 g; Refill: 0 Return in about 5 days (around 02/02/2025) for Symptoms failing to improve. Violetta Dorsey PA-C [facility] Bradshaw is a 39 year old female who presents to clinic today for the following health issues: Chief Complaint Patient presents with Derm Problem Body rashes noticed today, itchiness, redness and spreading rapidly. No other symptoms. 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 Onset of symptoms today. She does not recall any new foods, no new exposure to soaps, detergents or lotion or plants. No difficulty breathing, no shortness of breath, no scratchy throat or sore throat, no chest pain. No vomiting or diarrhea. No recent illnesses. No new medications. Treatment tried: Benadryl cream. She brought in pictures. Review of Systems Constitutional, HEENT, cardiovascular, pulmonary, GI, , musculoskeletal, neuro, skin, endocrine and psych systems are negative, except as otherwise noted. Objective BP 118/80 Pulse 61 Temp 98.4 ??F (36.9 ??C) (Tympanic) Resp 21 Ht 1.626 m (5' 4) Wt 108 kg (238 lb) LMP 01/23/2025 (Exact Date) SpO2 100% BMI 40.85 kg/m?? Physical Exam GENERAL: alert and no distress RESP: normal breathing effort SKIN: very faint slightly erythematous macular rash on bilateral lower back, no pustules, no vesicles, no open wounds or sore documented in this encounter Plan of Treatment Upcoming Encounters Date Type Department Care Team (Late st Contact Info) Description 04/07/2025 3:00 PM CDT Ancillary Procedure [facility] [place] [address] [facility] 1st [place] [phone] Carmen Menon MD [address] [place] [address] 04/07/2025 4:30 PM CDT Oncology Visit [facility] [address] [place] [phone] Carmen Menon MD [address] [place] [address] [phone] 04/10/2025 11:00 AM CDT Office Visit [facility] [address] [facility], [address] [place] [phone] Tayler Courtney MD PhD [address] [place] [id number] documented as of this encounter Goals Goal Patient Goal Type Associated Problems Recent Progress Patient-Stated? Author Medical General Yes Khushbu Jain, RN Note: Goal Statement: I will follow the recommended plan of care to manage diarrhea and constipation related to my cancer and treatment. Date Goal set: 09/21/2023 Barriers: coping Strengths: support, motivation, health awareness, and involvement with care team Date to Achieve By: ongoing Patient expressed understanding of goal: Yes Action steps to achieve this goal: I will drink plenty of fluids. I will contact triage with uncontrolled symptoms. I will use laxatives and/or stool softeners as directed (Senna, Miralax, Colace, Milk of Mag). I will eat foods high in fiber. I will exercise regularly. MYC ECC SURG ENROLL Care Plan MyC ECC SURG ENROLL No Monica Cummins documented as of this encounter Visit Diagnoses Diagnosis Hives- Primary Urticaria, unspecified documented in this encounter Additional Health Concerns Active Problems Noted Date Diagnosed Date MyC ECC SURG ENROLL 08/18/2023 documented as of this encounter Care Teams Bilingual Office Assistant Relationship Specialty Start Date End Date Clinic, [facility] [place] [address] [place] [address] PCP - General 08/15/23 Khushbu Jain, RN Specialty Licensed Real Estate Broker Hematology & Oncology 09/04/23 Carmen Menon MD [address] [place], [place] [phone] Neurology 09/04/23 Tayler Courtney MD PhD [address] [place] [address] [id number] Radiation Oncology 09/04/23 Carmen Menon MD [address] [place], [place] [phone] Assigned Neuroscience Provider 09/16/23 Tayler Courtney MD PhD [address] [place] [address] [phone] Assigned Cancer Care Provider 10/17/23 Jayne Sumner, [facility] Pharmacist 11/07/23 documented as of this encounter
--- OUTSIDE RECORDS SUMMARY | 2025-03-08 11:18 | XMS_ITS | Encounter Summary ---
Author Organization [place] Address [address] [place] [address]. [place] [address] Care Team Providers Care [employer] Automobiles Repairer Name Role Phone [facility], [facility] Pro vider Khushbu Jain RN Unavailable Unavailable Carmen Menon MD Unavailable +- [phone] Tayler Courtney MD PhD Unavailable +[phone] Carmen Menon MD Unavailable + [phone] Tayler Courtney MD PhD Unavailable [phone] Jayne Sumner [facility] Unavailable Unavailable Encounter Details Date Type Department Care Team (Late st Contact Info) Description 05/14/2024 MyC Medical Advice [address] [address] Ghazala Sierra LICSW Social History [...] Sex Assigned at Female 05/03/2024 7:08 AM SAIL MAKER Legal Sex Female 3:27 AM SAIL MAKER Gender Identity Female 05/03/2024 7:08 AM SAIL MAKER Sexual Orientation Not on file documented as of this encounter Plan of Treatment Upcoming Encounters Date Type Department Care Team (Late st Contact Info) Description 04/07/2025 3:00 PM CDT Ancillary Procedure [facility] 909 [facility] 1st [place] [phone] Carmen Menon MD [address] [place] [address] 905815 04/07/2025 4:30 PM CDT Oncology [facility] 909 [place] [phone] Carmen Menon MD [address] [place] [address] 484355 04/10/2025 11:00 AM CDT Office Visit [facility] Radiation Oncology 500 [facility], 1st [place] [phone] Tayler Courtney MD PhD [address] [place] [address] 811285 documented as of this encounter Goals Goal [...] documented as of this encounter Care Teams [employer] Repairer Relationship Specialty Start Date End Date [facility] [address] [place] [address] PCP - General 08/15/23 Khushbu Jain, RN Specialty Painter Shipyard Hematology & Oncology 09/04/23 Carmen Menon MD 909 [place] [address] Neurology 09/04/23 Tayler Courtney MD PhD [address] [place] [address] Radiation Oncology 09/04/23 Carmen Menon MD 909 [place] [address] Assigned Neuroscience Provider 09/16/23 Tayler Courtney MD PhD 500 [place] [address] Assigned Cancer Care Provider 10/17/23 Jayne Sumner [facility] Pharmacist 11/07/23 documented as of this encounter
--- OUTSIDE RECORDS SUMMARY | 2025-03-08 11:18 | XMS_ITS | Encounter Summary ---
Author Organization [place] Address [address] [place] [address] Care Team Providers Care First Front Ventilator Name Role Phone Clinic, [facility] [place] Primary Care Pro vider Khushbu Jain RN Unavailable Unavailable Carmen Menon MD Unavailable + [phone] Tayler Courtney MD PhD Unavailable +[phone] Carmen Menon MD Unavailable + [phone] Tayler Courtney MD PhD Unavailable +[phone] Jayne Sumner [facility] Unavailable Unavailable Encounter Details Date Type Department Care Team (Late st Contact Info) Description 05/13/2024 MyC Medical Advice [facility] Cancer Clinic [address] [place] [phone] Carmen Menon MD [address] [place] [address] Social History Tobacco Use Types Packs/Day [...] Sex Assigned at Female 05/03/2024 7:08 AM CREAM GATHERER Legal Sex Female 3:27 AM CREAM GATHERER Gender Identity Female 05/03/2024 7:08 AM CREAM GATHERER Sexual Orientation Not on file documented as of this encounter Plan of Treatment Upcoming Encounters Date Type Department Care Team (Late st Contact Info) Description 04/07/2025 3:00 PM CDT Ancillary Procedure [facility] 909 [facility] 1st [place] [phone] Carmen Menon MD [address] [place] [address] 04/07/2025 4:30 PM CDT Oncology Visit [facility] Cancer Clinic [address] [place] [phone] Carmen Menon MD [address] [place] [address] 713135 04/10/2025 11:00 AM CDT Office Visit [facility] Radiation Oncology 500 [facility], 1st [place] [phone] Tayler Courtney MD PhD [address] [place] [address] documented as of this encounter Goals Goal [...] documented as of this encounter Care Teams First Front Ventilator Relationship Specialty Start Date End Date Clinic, [facility] [address] [place] [address] PCP - General 08/15/23 Khushbu Jain, RN Specialty Production Hand Hematology & Oncology 09/04/23 Carmen Menon MD [address] [place] [address] Neurology 09/04/23 Tayler Courtney MD PhD [address] [place] [address] Radiation Oncology 09/04/23 Carmen Menon MD [address] [place] [address] Assigned Neuroscience Provider 09/16/23 Tayler Courtney MD PhD 500 [place] [address] Assigned Cancer Care Provider 10/17/23 Jayne Sumner, [facility] Pharmacist 11/07/23 documented as of this encounter
--- OUTSIDE RECORDS SUMMARY | 2025-03-08 11:18 | XMS_ITS | Encounter Summary ---
Author Organization [place] Address [address] [place] [address]. [place] [address] Care Team Providers Care Coin Wrapping Machine Operator Name Role Phone Clinic, [facility] [place] Primary Care Pro vider Khushbu Jain RN Unavailable Unavailable Carmen Menon MD Unavailable +[phone]- [phone] Tayler Courtney MD PhD Unavailable +[phone] Carmen Menon MD Unavailable + [phone] Tayler Courtney MD PhD Unavailable [phone] Jayne Sumner [facility] Unavailable Unavailable Encounter Details Date Type Department Care Team (Late st Contact Info) Description 04/22/2024 [facility] Medical Advice [facility] Cancer Clinic 9 [place] [address] Sharron Johnson Social History Tobacco [...] Sex Assigned at Female 05/03/2024 7:08 AM HEAD RIGGER Legal Sex Female 3:27 AM HEAD RIGGER Gender Identity Female 05/03/2024 7:08 AM HEAD RIGGER Sexual Orientation Not on file documented as of this encounter Plan of Treatment Upcoming Encounters Date Type Department Care Team (Late st Contact Info) Description 04/07/2025 3:00 PM CDT Ancillary Procedure [facility] Imaging Center [facility] [address] [facility] 1st [place] [phone] Carmen Menon MD [address] [place] [address] 308855 04/07/2025 4:30 PM CDT Oncology Visit [facility] Clinic 909 [place] [phone] Carmen Menon MD [address] [place] [address] 797735 04/10/2025 11:00 AM CDT [facility] Visit [facility] 500 [facility], 1st [place] [phone] Tayler Courtney MD PhD [address] [place] [address] 391655 documented as of this encounter Goals Goal [...] documented as of this encounter Care Teams Coin Wrapping Machine Operator Relationship Specialty Start Date End Date [facility] [address] [place] [address] PCP - General 08/15/23 Khushbu Jain, RN Specialty Lead Systems Architect Hematology & Oncology 09/04/23 Carmen Menon MD 909 [place] [address] Neurology 09/04/23 Tayler Courtney MD PhD [address] [place] [address] Radiation Oncology 09/04/23 Carmen Menon MD 909 [place] [address] Assigned Neuroscience Provider 09/16/23 Tayler Courtney MD PhD 500 [place] [address] Assigned Cancer Care Provider 10/17/23 Jayne Sumner [facility] Pharmacist 11/07/23 documented as of this encounter
--- OUTSIDE RECORDS SUMMARY | 2025-03-08 11:18 | XMS_ITS | Encounter Summary ---
Author Organization [place] Address [address] [place] [address] Care Team Providers Care Customer Service Correspondence Clerk Name Role Phone [facility], [facility] Pro vider Khushbu Jain RN Unavailable Unavailable Carmen Menon MD Unavailable + [phone] Tayler Courtney MD PhD Unavailable +[phone] Carmen Menon MD Unavailable + [phone] Tayler Courtney MD PhD Unavailable [phone] Jayne Sumner [facility] Unavailable Unavailable Encounter Details Date Type Department Care Team (Late st Contact Info) Description 07/17/2024 [facility] Insurance Verification [place] Social History [...] Sex Assigned at Female 05/03/2024 7:08 AM BUSINESS ETHICS PROFESSOR Legal Sex Female 3:27 AM BUSINESS ETHICS PROFESSOR Gender Identity Female 05/03/2024 7:08 AM BUSINESS ETHICS PROFESSOR Sexual Orientation Not on file documented as of this encounter Plan of Treatment Upcoming Encounters Date Type Department Care Team (Late st Contact Info) Description 04/07/2025 3:00 PM CDT Ancillary Procedure [facility] [place] 909 [facility] 1st [place] [phone] Carmen Menon MD [address] [place] [address] 04/07/2025 4:30 PM CDT Oncology Visit [facility] 909 [place] [phone] Carmen Menon MD [address] [place] [address] [phone] 04/10/2025 11:00 AM CDT Office Visit [facility] Radiation Oncology 500 [facility], 1st [place] [phone] Tayler Courtney MD PhD [address] [place] [address] 741485 documented as of this encounter Goals Goal [...] documented as of this encounter Care Teams Customer Service Correspondence Clerk Relationship Specialty Start Date End Date Clinic, [facility] [place] [address] [place] [address] PCP - General 08/15/23 Khushbu Jain, RN Specialty Miniature Train Driver Hematology & Oncology 09/04/23 Carmen Menon MD [address] [place] [address] 824865 Neurology 09/04/23 Tayler Courtney MD PhD [address] [place] [address] 559125 Radiation Oncology 09/04/23 Carmen Menon MD [address] [place] [address] 309735 Assigned Neuroscience Provider 09/16/23 Tayler Courtney MD PhD 500 [place], [place] 351825 Assigned Cancer Care Provider 10/17/23 Jayne Sumner, [facility] Pharmacist 11/07/23 documented as of this encounter
--- OUTSIDE RECORDS SUMMARY | 2025-03-08 11:18 | XMS_ITS | Encounter Summary ---
Author Organization [place] Address [address] [place] [address]. [place] [address] Care Team Providers Care Quality Assurance Monitor Body Name Role Phone Clinic, [place] [facility] Primary Care Pro vider Khushbu Jain RN Unavailable Unavailable Carmen Menon MD Unavailable + [phone] Tayler Courtney MD PhD Unavailable +[phone] Carmen Menon MD Unavailable + [phone] Tayler Courtney MD PhD Unavailable [phone] Jayne Sumner [facility] Unavailable Unavailable Encounter Details Date Type Department Care Team (Late st Contact Info) Description 03/14/2024 [facility] Radiation Oncology [address] [facility], 1st [place] [address] Jarrell Keith Social History Tobacco Use Types [...] Sex Assigned at Female 05/03/2024 7:08 AM PERSONALIZED LIVING MANAGER NURSE Legal Sex Female 3:27 AM PERSONALIZED LIVING MANAGER NURSE Gender Identity Female 05/03/2024 7:08 AM PERSONALIZED LIVING MANAGER NURSE Sexual Orientation Not on file documented as of this encounter Plan of Treatment Upcoming Encounters Date Type Department Care Team (Late st Contact Info) Description 04/07/2025 3:00 PM CDT Ancillary Procedure [facility] Center MRI [place] 909 [facility] 1st [place] [phone] Carmen Menon MD [address] [place] [address] 04/07/2025 4:30 PM CDT Oncology Visit [facility] Clinic [address] [place] [phone] Carmen Menon MD [address] [place] [address] 04/10/2025 11:00 AM CDT Office Visit [facility] Radiation Oncology 500 [facility], 1st [place] [phone] Tayler Courtney MD PhD 500 [place], [place] 568355 documented as of this encounter Goals Goal [...] documented as of this encounter Care Teams Quality Assurance Monitor Body Relationship Specialty Start Date End Date Clinic, [facility] [place] [address] [place] [address] PCP - General 08/15/23 Khushbu Jain, RN Specialty Emergency Preparedness Coordinator Hematology & Oncology 09/04/23 Carmen Menon MD 909 [place], [place] 7[address] Neurology 09/04/23 Tayler Courtney MD PhD [address] [place] [address] Radiation Oncology 09/04/23 Carmen Menon MD 909 [place], [place] 951285 Assigned Neuroscience Provider 09/16/23 Tayler Courtney MD PhD [address] [place] [address] Assigned Cancer Care Provider 10/17/23 Jayne Sumner [facility] Pharmacist 11/07/23 documented as of this encounter
--- OUTSIDE RECORDS SUMMARY | 2025-03-08 11:18 | XMS_ITS | Encounter Summary ---
Author Organization [place] Address [address] [place] [address]. [place] [address] Care Team Providers Care Manager Labor Relations Name Role Phone Clinic, [facility] [place] Primary Care Pro vider Khushbu Jain RN Unavailable Unavailable Carmen Menon MD Unavailable +[phone] Tayler Courtney MD PhD Unavailable +[phone] Carmen Menon MD Unavailable + [phone] Tayler Courtney MD PhD Unavailable [phone] Jayne Sumner [facility] Unavailable Unavailable Encounter Details Date Type Department Care Team (Late st Contact Info) Description 12/22/2023 [facility] Clinic 9 [place] [address] Jarrell Keith Social History Tobacco [...] Sex Assigned at Female 05/03/2024 7:08 AM BRIDGE MANAGER Legal Sex Female 3:27 AM BRIDGE MANAGER Gender Identity Female 05/03/2024 7:08 AM BRIDGE MANAGER Sexual Orientation Not on file documented as of this encounter Plan of Treatment Upcoming Encounters Date Type Department Care Team (Late st Contact Info) Description 04/07/2025 3:00 PM CDT Ancillary Procedure [facility] Imaging [facility] [address] [facility] 1st [place] [phone] Carmen Menon MD [address] [place] [address] 907025 04/07/2025 4:30 PM CDT Oncology Visit [facility] 909 [place] [phone] Carmen Menon MD [address] [place] [address] [phone] 04/10/2025 11:00 AM CDT Office [facility] Radiation Oncology 500 [facility], 1st [place] [phone] Tayler Courtney MD PhD [address] [place] [address] 280755 documented as of this encounter Goals Goal [...] documented as of this encounter Care Teams Manager Labor Relations Relationship Specialty Start Date End Date [facility] [address] [place] [address] PCP - General 08/15/23 Khushbu Jain, RN Specialty Director Of Residential Services Hematology & Oncology 09/04/23 Carmen Menon MD 909 [place] [address] Neurology 09/04/23 Tayler Courtney MD PhD [address] [place] [address] Radiation Oncology 09/04/23 Carmen Menon MD 909 [place] [address] Assigned Neuroscience Provider 09/16/23 Tayler Courtney MD PhD 500 [place] [address] Assigned Cancer Care Provider 10/17/23 Jayne Sumner [facility] Pharmacist 11/07/23 documented as of this encounter
--- OUTSIDE RECORDS SUMMARY | 2025-03-08 11:18 | XMS_ITS | Encounter Summary ---
Author Organization [place] Address [address] [place] [address]. [place] [address] Care Team Providers Care Livery Car Driver Name Role Phone Clinic, [facility] [place] Primary Care Pro vider Khushbu Jain RN Unavailable Unavailable Carmen Menon MD Unavailable +[phone]- [phone] Tayler Courtney MD PhD Unavailable +[phone] Carmen Menon MD Unavailable + [phone] Tayler Courtney MD PhD Unavailable +[phone] Jayne Sumner [facility] Unavailable Unavailable Encounter Details Date Type Department Care Team (Late st Contact Info) Description 01/04/2024 [facility] 9 [place] [address] Dania Seo Social History Tobacco [...] Sex Assigned at Female 05/03/2024 7:08 AM TRAVELING SALES REPRESENTATIVE Legal Sex Female 3:27 AM TRAVELING SALES REPRESENTATIVE Gender Identity Female 05/03/2024 7:08 AM TRAVELING SALES REPRESENTATIVE Sexual Orientation Not on file documented as of this encounter Plan of Treatment Upcoming Encounters Date Type Department Care Team (Late st Contact Info) Description 04/07/2025 3:00 PM CDT Ancillary Procedure [facility] Imaging Center [facility] 909 [facility] 1st [place] [phone] Carmen Menon MD [address] [place] [address] 410365 04/07/2025 4:30 PM CDT Oncology Visit [facility] 909 [place] [phone] Carmen Menon MD [address] [place] [address] 078445 04/10/2025 11:00 AM CDT Office Visit [facility] Radiation Oncology 500 [facility], 1st [place] [phone] Tayler Courtney MD PhD [address] [place] [address] [phone] documented as of this encounter Goals Goal [...] documented as of this encounter Care Teams Livery Car Driver Relationship Specialty Start Date End Date [facility] [address] [place] [address] PCP - General 08/15/23 Khushbu Jain, RN Specialty Section Gang Hematology & Oncology 09/04/23 Carmen Menon MD 909 [place] [address] Neurology 09/04/23 Tayler Courtney MD PhD [address] [place] [address] Radiation Oncology 09/04/23 Carmen Menon MD 909 [place] [address] Assigned Neuroscience Provider 09/16/23 Tayler Courtney MD PhD 500 [place] [address] Assigned Cancer Care Provider 10/17/23 Jayne Sumner [facility] Pharmacist 11/07/23 documented as of this encounter
--- OUTSIDE RECORDS SUMMARY | 2025-03-08 11:18 | XMS_ITS | Encounter Summary ---
Author Organization [place] Address [address] [place] [address]. [place] [address] Care Team Providers Care Fish Egg Packer Name Role Phone Clinic, [facility] Primary Care Pro vider Khushbu Jain RN Unavailable Unavailable Carmen Menon MD Unavailable +[phone]- [phone] Tayler Courtney MD PhD Unavailable [phone] Carmen Menon MD Unavailable + [phone] Tayler Courtney MD PhD Unavailable [phone] Jayne Sumner [facility] Unavailable Unavailable Encounter Details Date Type Department Care Team (Late st Contact Info) Description 11/13/2023 [facility] 9 [place] [address] Jarrell Keith Social History Tobacco [...] Sex Assigned at Female 05/03/2024 7:08 AM AUTOMATIC WHEEL LINE OPERATOR Legal Sex Female 3:27 AM AUTOMATIC WHEEL LINE OPERATOR Gender Identity Female 05/03/2024 7:08 AM AUTOMATIC WHEEL LINE OPERATOR Sexual Orientation Not on file documented as of this encounter Plan of Treatment Upcoming Encounters Date Type Department Care Team (Late st Contact Info) Description 04/07/2025 3:00 PM CDT Ancillary Procedure [facility] Imaging Center [facility] 909 [facility] 1st [place] [phone] Camren Menon MD [address] [place] [address] 350285 04/07/2025 4:30 PM CDT Oncology Visit [facility] 909 [place] [phone] Carmen Menon MD [address] [place] [address] 496285 04/10/2025 11:00 AM CDT Office Visit [facility] Radiation Oncology 500 [facility], 1st [place] [phone] Tayler Courtney MD PhD [address] [place] [address] 948965 documented as of this encounter Goals Goal [...] documented as of this encounter Care Teams Fish Egg Packer Relationship Specialty Start Date End Date [facility] [address] [place] [address] PCP - General 08/15/23 Khushbu Jain, RN Specialty Truck Loader And Unloader Hematology & Oncology 09/04/23 Carmen Menon MD 909 [place] [address] Neurology 09/04/23 Tayler Courtney MD PhD [address] [place] [address] Radiation Oncology 09/04/23 Carmen Menon MD 909 [place] [address] Assigned Neuroscience Provider 09/16/23 Tayler Courtney MD PhD 500 [place] [address] Assigned Cancer Care Provider 10/17/23 Jayne Sumner [facility] Pharmacist 11/07/23 documented as of this encounter
--- OUTSIDE RECORDS SUMMARY | 2025-03-08 11:18 | XMS_ITS | Encounter Summary ---
Author Organization [place] Address [address] [place] [address]. [place] [address] Care Team Providers Care Provider Relations Coordinator Name Role Phone Clinic, [place] [facility] Primary Care Pro vider Khushbu Jain RN Unavailable Unavailable Carmen Menon MD Unavailable + [phone] Tayler Courtney MD PhD Unavailable [phone] Carmen Menon MD Unavailable + [phone] Tayler Courtney MD PhD Unavailable [phone] Jayne Sumner [facility] Unavailable Unavailable Encounter Details Date Type Department Care Team (Late st Contact Info) Description 08/01/2024 [facility] Medical Advice [facility] Radiation Oncology [address] [facility], 1st [place] [address] Carmen Luis RN Social History Tobacco Use [...] Sex Assigned at Female 05/03/2024 7:08 AM MECHANICAL ENGINEERING MANAGER Legal Sex Female 3:27 AM MECHANICAL ENGINEERING MANAGER Gender Identity Female 05/03/2024 7:08 AM MECHANICAL ENGINEERING MANAGER Sexual Orientation Not on file documented as of this encounter Plan of Treatment Upcoming Encounters Date Type Department Care Team (Late st Contact Info) Description 04/07/2025 3:00 PM CDT Ancillary Procedure [facility] Imaging Center [place] 909 [facility] 1st [place] [phone] Carmen Menon MD [address] [place] [address] 04/07/2025 4:30 PM CDT Oncology Visit [facility] [address] [place] [phone] Carmen Menon MD [address] [place] [address] 04/10/2025 11:00 AM CDT Office Visit [facility] Radiation Oncology 500 [facility], 1st [place] [phone] Tayler Courtney MD PhD [address] [place] [address] 057785 documented as of this encounter Goals Goal [...] documented as of this encounter Care Teams Provider Relations Coordinator Relationship Specialty Start Date End Date Clinic, [facility] [place] [address] [place] [address] PCP - General 08/15/23 Khushbu Jain, RN Specialty Layup Worker Hematology & Oncology 09/04/23 Carmen Menon MD 909 [place], [place] 217125 Neurology 09/04/23 Tayler Courtney MD PhD [address] [place] [address] Radiation Oncology 09/04/23 Carmen Menon MD 909 [place], [place] 684065 Assigned Neuroscience Provider 09/16/23 Tayler Courtney MD PhD 500 [place] [address] Assigned Cancer Care Provider 10/17/23 Jayne Sumner, [facility] Pharmacist 11/07/23 documented as of this encounter
--- OUTSIDE RECORDS SUMMARY | 2025-03-08 11:18 | XMS_ITS | Encounter Summary ---
Author Organization [place] Address [address] [place] [address]. [place] [address] Care Team Providers Care Visualizer Name Role Phone Clinic, [facility] Alejandro [place] Primary Care Pro vider Khushbu Jain RN Unavailable Unavailable Carmen Menon MD Unavailable + [phone] Tayler Courtney MD PhD Unavailable [phone] Carmen Menon MD Unavailable + [phone] Tayler Courtney MD PhD Unavailable [phone] Jayne Sumner [facility] Unavailable Unavailable Encounter Details Date Type Department Care Team (Late st Contact Info) Description 06/11/2024 [facility] Medical [facility] Radiation Oncology [address] [facility], 1st [place] [address] Jarrell Keith Social History Tobacco Use Types [...] Sex Assigned at Female 05/03/2024 7:08 AM GRAIN MILLER HELPER Legal Sex Female 3:27 AM GRAIN MILLER HELPER Gender Identity Female 05/03/2024 7:08 AM GRAIN MILLER HELPER Sexual Orientation Not on file documented as of this encounter Plan of Treatment Upcoming Encounters Date Type Department Care Team (Late st Contact Info) Description 04/07/2025 3:00 PM CDT Ancillary Procedure [facility] MRI [place] 909 [facility] 1st [place] [phone] Carmen Menon MD [address] [place] [address] 04/07/2025 4:30 PM CDT Oncology Visit [facility] [address] [place] [phone] Carmen Menon MD [address] [place] [address] 04/10/2025 11:00 AM CDT Office Visit [facility] Radiation Oncology 500 [facility], 1st [place] [phone] Tayler Courtney MD PhD 500 [place], [place] 078375 documented as of this encounter Goals Goal [...] documented as of this encounter Care Teams Visualizer Relationship Specialty Start Date End Date Clinic, [facility] [place] [address] [place] [address] PCP - General 08/15/23 Khushbu Jain, RN Specialty Supervisor Television Chassis Repair Hematology & Oncology 09/04/23 Carmen Menon MD 909 [place], [place] 620105 Neurology 09/04/23 Tayler Courtney MD PhD [address] [place] [address] Radiation Oncology 09/04/23 Carmen Menon MD 909 [place], [place] 767165 Assigned Neuroscience Provider 09/16/23 Tayler Courtney MD PhD [address] [place] [address] Assigned Cancer Care Provider 10/17/23 Jayne Sumner [facility] Pharmacist 11/07/23 documented as of this encounter
--- OUTSIDE RECORDS SUMMARY | 2025-03-08 11:18 | XMS_ITS | Encounter Summary ---
Author Organization [place] Address [address] [place] [address]. [place] [address] Care Team Providers Care Driver Education Instructor Name Role Phone Clinic, [facility] [place] Primary Care Pro vider Khushbu Jain RN Unavailable Unavailable Carmen Menon MD Unavailable [phone] Tayler Courtney MD PhD Unavailable [phone] Carmen Menon MD Unavailable + [phone] Tayler Courtney MD PhD Unavailable [phone] Jayne Sumner [facility] Unavailable Unavailable Encounter Details Date Type Department Care Team (Late st Contact Info) Description 09/04/2023 [facility] Medical Advice [facility] Cancer Clinic 9 [place] [address] Nirav Dugan, [facility] Social History Tobacco Use Types [...] Sex Assigned at Female 05/03/2024 7:08 AM ONCOLOGY PHYSICIAN ASSISTANT Legal Sex Female 3:27 AM ONCOLOGY PHYSICIAN ASSISTANT Gender Identity Female 05/03/2024 7:08 AM ONCOLOGY PHYSICIAN ASSISTANT Sexual Orientation Not on file documented as of this encounter Plan of Treatment Upcoming Encounters Date Type Department Care Team (Late st Contact Info) Description 04/07/2025 3:00 PM CDT Ancillary Procedure [facility] Imaging Center [facility] 909 [facility] 1st [place] [phone] Carmen Menon MD [address] [place] [address] 624225 04/07/2025 4:30 PM CDT Oncology Visit [facility] Cancer Clinic 909 [place] [phone] Carmen Menon MD [address] [place] [address] [phone] 04/10/2025 11:00 AM CDT Office Visit [facility] Radiation Oncology 500 [facility], 1st [place] [phone] Tayler Courtney MD PhD [address] [place] [address] [phone] documented as of this encounter Goals Goal [...] documented as of this encounter Care Teams Driver Education Instructor Relationship Specialty Start Date End Date Clinic, [facility] [id number] [place] [address] PCP - General 08/15/23 Khushbu Jain, RN Specialty Oil Tester Hematology & Oncology 09/04/23 Carmen Menon MD 909 [place] [address] Neurology 09/04/23 Tayler Courtney MD PhD 500 [place] [address] Radiation Oncology 09/04/23 Carmen Menon MD [address] [place] [address] Assigned Neuroscience Provider 09/16/23 Tayler Courtney MD PhD 500 [place] [address] Assigned Cancer Care Provider 10/17/23 Jayne Sumner [facility] Pharmacist 11/07/23 documented as of this encounter
--- OUTSIDE RECORDS SUMMARY | 2025-03-08 11:18 | XMS_ITS | Encounter Summary ---
Author Organization [place] Address [address] [place] [address]. [place] [address] Care Team Providers Care Cotton Acreage Measurer Name Role Phone Clinic, [facility] [place] Primary Care Pro vider Khushbu Jain RN Unavailable Unavailable Carmen Menon MD Unavailable + [phone] Tayler Courtney MD PhD Unavailable [phone] Carmen Menon MD Unavailable + [phone] Tayler Courtney MD PhD Unavailable [phone] Jayne Sumner [facility] Unavailable Unavailable Encounter Details Date Type Department Care Team (Late st Contact Info) Description 02/22/2024 [facility] Medical Advice [facility] Cancer Clinic 909 [place] [address] Maria Byrd RP XXX RESIGNED XXX 500 [place], [place] [phone] Social History Tobacco Use Types Packs/Day Years [...] Sex Assigned at Female 05/03/2024 7:08 AM REGIONAL OWNER OPERATOR TRUCK DRIVER Legal Sex Female 3:27 AM REGIONAL OWNER OPERATOR TRUCK DRIVER Gender Identity Female 05/03/2024 7:08 AM REGIONAL OWNER OPERATOR TRUCK DRIVER Sexual Orientation Not on file documented as of this encounter Plan of Treatment Upcoming Encounters Date Type Department Care Team (Late st Contact Info) Description 04/07/2025 3:00 PM CDT Ancillary Procedure [facility] Imaging Center [facility] [address] [facility] 1st [place] [phone] Carmen Menon MD [address] [place] [address] 04/07/2025 4:30 PM CDT Oncology Visit [facility] [address] [place] [phone] Carmen Menon MD [address] [place] [address] 278845 04/10/2025 11:00 AM CDT Office Visit [facility] Radiation Oncology 500 [facility], 1st [place] [phone] Tayler Courtney MD PhD 500 [place] [address] documented as of this encounter Goals Goal [...] documented as of this encounter Care Teams Cotton Acreage Measurer Relationship Specialty Start Date End Date Clinic, [facility] [address] [place] [address] PCP - General 08/15/23 Khushbu Jain, RN Specialty Beehive Kiln Supervisor Hematology & Oncology 09/04/23 Carmen Menon MD [address] [place] [address] Neurology 09/04/23 Tayler Courtney MD PhD [address] [place] [address] Radiation Oncology 09/04/23 Carmen Menon MD [address] [place] [address] Assigned Neuroscience Provider 09/16/23 Tayler Courtney MD PhD [address] [place] [address] Assigned Cancer Care Provider 10/17/23 Jayne Sumner, [facility] Pharmacist 11/07/23 documented as of this encounter
--- OUTSIDE RECORDS SUMMARY | 2025-03-08 11:18 | XMS_ITS | Clinical Summary ---
Author Organization [facility] Address [address] [place] [address] Care Team Providers Care Head Waiter Name Role Phone Unassigned, Provider Primary Care Provider Unava ilable Source Comments You are receiving this document as you are listed as the primary care provider,follow-up provider, or the patient has been referred to you for consultation.This is in compliance with the Medicare andOhiohealth Gr[facility] Hospitalcaid EHR Incentive Program,which states Providers who [...] 03/15/2013 Overview (01/28/2016): Needs f/u TVUS in [place] at 16 weeks per consult. Currently on [...] 162.6 cm (5' 4) 07/23/2012 1:10 PM LONE LEAD LINEMAN p t reported Body Mass Index 31.93 07/23/2012 1:10 PM LONE LEAD LINEMAN Plan of Treatment Health Maintenance Due Date Last Done Comments Mammogram 1984 Adult Preventive Visit 2002 HepB Vaccine (1) 2003 Cervical Cancer Screening Due 02/05/2005 02/04/2005 HPV Vaccine (1 - 3-dose SCDM series) 2011 COVID-19 Vaccine (1 - 2023-2 5 season) 2025 Influenza Vaccine (#1) 2025 04/23/2019 DTaP/Tdap/Td Vaccine [...] Comments HIV ANTIBODY Routine 07/10/2012 4:05 PM LONE LEAD LINEMAN Supervision of normal subsequent Special screening examination for other specified viral diseases Screening examination for venereal disease HEPATITIS C ANTIBODY, WITH REFLEX (ANTI-HCV) Routine 07/10/2012 4:05 PM LONE LEAD LINEMAN Supervision of normal subsequent ANATOMICAL PATH LIQUID BASED Routine 02/04/2005 1:13 PM CDT from Last 3 Months or Most Recently Relevant to Health Maintenance Results * HIV ANTIBODY (07/10/2012 4:05 PM LONE LEAD LINEMAN) HIV 1/HIV 2 Non-React Non-Reacti ve HP CONVERSION 07/10/2012 4:05 PM LONE LEAD LINEMAN 07/10/2012 9:31 PM LONE LEAD LINEMAN us Jennifer Johnson EPIC RADIANT ANALYST, CNM LAB_1 Final Result HP CONVERSION * Hepatitis C Antibody, with Reflex (07/10/2012 4:05 PM LONE LEAD LINEMAN) Hepatitis C Antibody Non-React Non-Reacti ve HP CONVERSION 07/10/2012 4:05 PM LONE LEAD LINEMAN 07/10/2012 9:31 PM LONE LEAD LINEMAN Jennifer Rodriguezvis EPIC RADIANT ANALYST, CNM LAB_1 Final Result Performing Organization Address City/[facility] Co de Phone Number HP CONVERSION * Pap Smear (02/04/2005 1:13 PM CDT) PAP Smear Liquid Based SEE TEXT No normal range HP CONVERSION Comment: Patient: LEEANN LOPEZ Katie CERVICAL CYTOLOGY REPORT Pathology # [id number] Date Obtained: Date Received: CYTOLOGIC IMPRESSION: Negative for intraepithelial lesion or malignancy. ADDITIONAL DATA LMP: CLINICAL HIST LIQUID BASED PAP CERVICAL SPECIMEN ADEQUACY: Satisfactory. ENDOCERVICAL CELLS: Present. Verified 02/15/05 by: Rustam Gutiérrez MD (electronic signature) 02/04/2005 1:13 PM CDT Danisha Jeffries MD LAB_1 Final Result HP CONVERSION from Last 3 Months or Most Recently Relevant to Health Maintenance Insurance [facility] [employer] * Guarantor: TING MEJIA Account Type Relation to Patient Date of Phone Billing Address Personal/Family 1960 [address] [place] [address] Care Teams Head Waiter Relationship Specialty Start Date End Date Unassigned, Provider [address] [place] [address] PCP - General 09/30/22
--- OUTSIDE RECORDS SUMMARY | 2025-03-08 11:18 | XMS_ITS | Encounter Summary ---
Author Organization [place] Address [address] [place] [address] Care Team Providers Care Design Intern Name Role Phone [facility] Pro vider Khushbu Jain RN Unavailable Unavailable Carmen Menon MD Unavailable +[phone] Tayler Courtney MD PhD Unavailable [phone] Carmen Menon MD Unavailable + [phone] Tayler Courtney MD PhD Unavailable [phone] Jayne Sumner [facility] Unavailable Unavailable Encounter Details Date Type Department Care Team (Late st Contact Info) Description 11/02/2023 MyC Medical Advice [facility] [address] [place] [phone] Radha King, [facility] Social History Tobacco Use Types Packs/Day Years [...] Sex Assigned at Female 05/03/2024 7:08 AM PHOTOENGRAVER APPRENTICE Legal Sex Female 3:27 AM PHOTOENGRAVER APPRENTICE Gender Identity Female 05/03/2024 7:08 AM PHOTOENGRAVER APPRENTICE Sexual Orientation Not on file documented as of this encounter Plan of Treatment Upcoming Encounters Date Type Department Care Team (Late st Contact Info) Description 04/07/2025 3:00 PM CDT Ancillary Procedure [facility] Imaging Center [facility] 909 [facility] 1st [place] [phone] Carmen Menon MD [address] [place] [address] 977975 04/07/2025 4:30 PM CDT Oncology Visit [facility] 909 [place] [phone] Carmen Menon MD [address] [place] [address] [phone] 04/10/2025 11:00 AM CDT Office Visit [facility] Radiation Oncology 500 [facility], 1st [place] [phone] Tayler Courtney MD PhD [address] [place] [address] 844525 documented as of this encounter Goals Goal [...] documented as of this encounter Care Teams Design Intern Relationship Specialty Start Date End Date Clinic, [facility] [address] [place] [address] PCP - General 08/15/23 Khushbu Jain, RN Specialty Lower School Music Teacher Hematology & Oncology 09/04/23 Carmen Menon MD [address] [place] [address] 116155 Neurology 09/04/23 Tayler Courtney MD PhD 500 [place] [address] Radiation Oncology 09/04/23 Carmen Menon MD [address] [place] [address] 992605 Assigned Neuroscience Provider 09/16/23 Tayler Courtney MD PhD 500 [place] [address] Assigned Cancer Care Provider 10/17/23 Jayne Sumner [facility] Pharmacist 11/07/23 documented as of this encounter
--- OUTSIDE RECORDS SUMMARY | 2025-03-08 11:18 | XMS_ITS | Encounter Summary ---
Author Organization [place] Address [address] [place] [address]. [place] [address] Care Team Providers Care Railroad Car Truck Builder Name Role Phone Clinic, [facility] [place] Primary Care Pro vider Khushbu Jain RN Unavailable Unavailable Carmen Menon MD Unavailable + [phone] Tayler Courtney MD PhD Unavailable [phone] Carmen Menon MD Unavailable + [phone] Tayler Courtney MD PhD Unavailable [phone] Jayne Sumner [facility] Unavailable Unavailable Encounter Details Date Type Department Care Team (Late st Contact Info) Description 08/23/2024 MyC Medical Advice [facility] Cancer Clinic 9 [place] [address] Shira Mantilla, RN Social History [...] Sex Assigned at Female 05/03/2024 7:08 AM COBOL PROGRAMMER Legal Sex Female 3:27 AM COBOL PROGRAMMER Gender Identity Female 05/03/2024 7:08 AM COBOL PROGRAMMER Sexual Orientation Not on file documented as of this encounter Plan of Treatment Upcoming Encounters Date Type Department Care Team (Late st Contact Info) Description 04/07/2025 3:00 PM CDT Ancillary Procedure [facility] Imaging Center [facility] 909 [facility] 1st [place] [phone] Carmen Menon MD [address] [place] [address] 04/07/2025 4:30 PM CDT Oncology Visit [facility] [address] [place] [phone] Carmen Menon MD [address] [place] [address] 04/10/2025 11:00 AM CDT Office Visit [facility] Radiation Oncology 500 [facility], 1st [place] [phone] Tayler Courtney MD PhD [address] [place] [address] 303665 documented as of this encounter Goals Goal [...] documented as of this encounter Care Teams Railroad Car Truck Builder Relationship Specialty Start Date End Date Clinic, [facility] [place] [address] [place] [address] PCP - General 08/15/23 Khushbu Jain, RN Specialty Hyperion Administrator Hematology & Oncology 09/04/23 Carmen Menon MD 909 [place], [place] 5845[address] Neurology 09/04/23 Tayler Courtney MD PhD [address] [place] [address] Radiation Oncology 09/04/23 Carmen Menon MD 909 [place], [place] 378265 Assigned Neuroscience Provider 09/16/23 Tayelr Courtney MD PhD 500 [place] [address] Assigned Cancer Care Provider 10/17/23 Jayne Sumner [facility] Pharmacist 11/07/23 documented as of this encounter
--- OUTSIDE RECORDS SUMMARY | 2025-03-08 11:18 | XMS_ITS | Encounter Summary ---
Author Organization [place] Address [address] [place] [address]. [place] [address] Care Team Providers Care Cnc Lathe Machine Operator Name Role Phone Clinic, [facility] [place] [facility] Pro vider Khushbu Jain RN Unavailable Unavailable Carmen Menon MD Unavailable + [phone] Tayler Coutrney MD PhD Unavailable +[phone] Carmen Menon MD Unavailable + [phone] Tayler Cuortney MD PhD Unavailable +[phone] Jayne Sumner [facility] Unavailable Unavailable Encounter Details Date Type Department Care Team (Late st Contact Info) Description 02/28/2024 MyC Medical Advice [facility] 9[address] [place] [address] Brionna Gonzalez APRN [facility] 500 [place] [address] Social History Tobacco Use Types [...] Sex Assigned at Female 05/03/2024 7:08 AM FLIGHT ENGINEER HELICOPTER Legal Sex Female 3:27 AM FLIGHT ENGINEER HELICOPTER Gender Identity Female 05/03/2024 7:08 AM FLIGHT ENGINEER HELICOPTER Sexual Orientation Not on file documented as of this encounter Plan of Treatment Upcoming Encounters Date Type Department Care Team (Late st Contact Info) Description 04/07/2025 3:00 PM CDT Ancillary Procedure [facility] 909 [facility] 1st [place] [phone] Carmen Menon MD [address] [place] [address] 04/07/2025 4:30 PM CDT Oncology Visit [facility] [address] [place] [phone] Carmen Menon MD [address] [place] [address] 04/10/2025 11:00 AM CDT Office Visit [facility] Radiation On[facility] 500 [facility], 1st [place] [phone] Tayler Courtney MD PhD [address] [place] [address] documented as of this encounter Goals Goal [...] documented as of this encounter Care Teams Cnc Lathe Machine Operator Relationship Specialty Start Date End Date Clinic, [facility] [id number] [place] [address] PCP - General 08/15/23 Khushbu Jain, RN Specialty Attic Blower Hematology & Oncology 09/04/23 Carmen Menon MD 9 [place] [address] Neurology 09/04/23 Tayler Courtney MD PhD [address] [place] [address] Radiation Oncology 09/04/23 Carmen Menon MD [address] [place] [address] Assigned Neuroscience Provider 09/16/23 Tayler Courtney MD PhD 500 [place] [address] Assigned Cancer Care Provider 10/17/23 Jayne Sumner, [facility] Pharmacist 11/07/23 documented as of this encounter
--- OUTSIDE RECORDS SUMMARY | 2025-03-08 11:18 | XMS_ITS | Encounter Summary ---
Author Organization [place] Address [address] [place] [address] Care Team Providers Care Car Tester Name Role Phone [facility], [facility] [place] [facility] Pro vider Khushbu Jain RN Unavailable Unavailable Carmen Menon MD Unavailable + [phone] Tayler Courtney MD PhD Unavailable [phone] Carmen Menon MD Unavailable + [phone] Tayler Courtney MD PhD Unavailable [phone] Jayne Sumner [facility] Unavailable Unavailable Reason for Visit * Reason Onset Date Comments Refill Request 05/29/2024 Encounter Details Date Type Department Care Team (Late st Contact Info) Description 05/29/2024 Guido King [facility] [address] [place] [phone] Carmen Menon MD [address] [place] [address] Refill Request Social History Tobacco Use [...] Assigned at Female 05/03/2024 7:08 AM CLINICAL GENETICS LABORATORY CHIEF Legal Sex Female 3:27 AM CLINICAL GENETICS LABORATORY CHIEF Gender Identity Female 05/03/2024 7:08 AM CLINICAL GENETICS LABORATORY CHIEF Sexual Orientation Not on file documented as of this encounter Miscellaneous Notes * Telephone Encounter - Rashida Bettencourt RPH - 05/30/2024 8:55 AM CST Spoke to pharmacist yesterday who called for clarification on cycle length. They have the rx. ICAL GENETICS LABORATORY CHIEF documented in this encounter Plan of Treatment Upcoming Encounters Date Type Department Care Team (Late st Contact Info) Description 04/07/2025 3:00 PM CDT Ancillary Procedure [facility] [address] [place] [address] [phone] Carmen Menon MD [address] [place] [address] 04/07/2025 4:30 PM CDT Oncology Visit [facility] [address] [place] [phone] Carmen Menon MD [address] [place] [address] 04/10/2025 11:00 AM CDT Office Visit [facility] Radiation Oncology 500 [facility], 1st [place] [phone] Tayler Courtney MD PhD [address] [place] [address] 901295 documented as of this encounter Goals Goal [...] documented as of this encounter Care Teams Car Tester Relationship Specialty Start Date End Date Clinic, [address] [address] PCP - General 08/15/23 Khushbu Jain, RN Specialty Clinical Specialist Hematology & Oncology 09/04/23 Carmen Menon MD [address] [place] [address] 323695 Neurology 09/04/23 Tayler Courtney MD PhD [address] [place] [address] Radiation Oncology 09/04/23 Carmen Menon MD [address] [place] [address] Assigned Neuroscience Provider 09/16/23 Tayler Courtney MD PhD 500 [place] [address] Assigned Cancer Care Provider 10/17/23 Jayne Sumner, [facility] Pharmacist 11/07/23 documented as of this encounter
--- OUTSIDE RECORDS SUMMARY | 2025-03-08 11:18 | XMS_ITS | Clinical Summary ---
Author Organization [place] Address [address] [place] [address] Care Team Providers Care Liquefier Name Role Phone Clinic, [facility] Primary Care Pro vider Khushbu Jain RN Unavailable Unavailable Carmen Menon MD Unavailable + [phone] Taylre Courtney MD PhD Unavailable [phone] Carmen Menon MD Unavailable + [phone] Tayler Courtney MD PhD Unavailable [phone] Jayne Sumner [facility] Unavailable Unavailable Allergies No known active allergies [...] PO Take 1 mL by mouth daily [facility] + Folic Acid (1 [...] Description 01/28/2025 5:35 PM CDT Office Visit [facility] [place] [address] [place] [address] Violetta Dorsey PA-C Hives (Primary Dx) 01/28/2025 Travel 12/19/2024 MyC Medical Advice [facility] Radiation On[facility] [address] [facility], 1st [place] [phone] Carmen Luis RN 12/09/2024 MyC Medical Advice [facility] [address] [place] [phone] Inna [place] 12/06/2024 4:30 PM CDT Oncology Visit [facility] [address] [place] [phone] Carmen Menon MD Oligodendroglioma, WHO grade II (H) (Primary Dx) 12/06/2024 2:30 PM CDT Ancillary Procedure [facility] [place] [address] [place] [address] 1st [place] [phone] Carmen Menon MD Oligodendroglioma, WHO grade II (H) 12/06/2024 Travel from Last 3 Months Family History Medical [...] Sex Assigned at Female 05/03/2024 7:08 AM AMBULATORY SERVICES REPRESENTATIVE Legal Sex Female 3:27 AM AMBULATORY SERVICES REPRESENTATIVE Gender Identity Female 05/03/2024 7:08 AM AMBULATORY SERVICES REPRESENTATIVE Sexual Orientation Not on file Last Filed [...] Procedure [facility] Center [facility] [address] [place] [address] [phone] Carmen Menon MD [address] [place] [address] 926175 04/07/2025 4:30 PM CDT Oncology Visit [facility] [address] [place] [phone] Carmen Menon MD [address] [place] [address] 04/10/2025 11:00 AM CDT Office Visit [facility] Radiation On[facility] [address] [facility], 1st [place] [address] Tayler Courtney MD PhD 500 [place], [place] 375565 Health Maintenance Due Date Last Done Comments [...] Monica [employer] Devices Implanted Type Area Clinical Operations Leader Device Identifier Shelf Expiration Date Model / Serial / Lot Imp Scr Syn Matrix Low Pro 1.5x04mm Self Drill .104.01 - [id number] Implanted:Qty: 11 on 08/23/2023 by Rustam Macdonald MD at [facility] Metallic Hardware/An chor Left: Cranial SYNTHES-STRATEC 4.01 / / NA Imp Plate Syn Jonas Hole Cover 17mm 023 - [id number] Implanted:Qty: 2 on 08/23/2023 by Rustam Macdonald MD at [facility] Metallic Hardware/An chor Left: Cranial SYNTHES-STRATEC 3 / / NA Imp Plate Syn Box 4 Hole 38y00ak .065 - [id number] Implanted:Qty: 1 on 08/23/2023 by Rustam Macdonald MD at [facility] Metallic Hardware/An chor Left: Cranial SYNTHES-STRATEC 5 / / NA Graft Duragen 3x3 Id330 - [id number] Implanted:Qty: 1 on 08/23/2023 by Rustam Macdonald MD at [facility] Other Left: Cranial [employer] 10/23/2025 [id number] / / [id number] Procedures Procedure Name Priority Date/Time Associated Diagnosis Comments MR BRAIN PERFUSION W/O & W CONTRAST Routine 12/06/2024 3:05 PM CDT Oligodendroglioma, WHO grade II (H) COMPREHENSIVE METABOLIC PANEL Routine 07/26/2024 10:28 AM AMBULATORY SERVICES REPRESENTATIVE Chemotherapy-induc ed nausea and vomiting from Last [...] surveillance. HARIS BAKER MD Carmen Menon MD IM MRI ORDERABLES F inal Result * Comprehensive metabolic panel (07/26/2024 10:28 AM AMBULATORY SERVICES REPRESENTATIVE) Sodium 141 135 - 145 mmol/L 07/27/2024 1:33 AM AMBULATORY SERVICES REPRESENTATIVE [facility] Potassium 4.2 3.4 - 5.3 mmol/L 07/27/2024 1:33 AM AMBULATORY SERVICES REPRESENTATIVE [facility] Carbon Dioxide (CO2) 26 22 - 29 mmol/L 07/27/2024 1:33 AM AMBULATORY SERVICES REPRESENTATIVE [facility] Anion Gap 8 7 - 15 mmol/L 07/27/2024 1:33 AM AMBULATORY SERVICES REPRESENTATIVE [facility] Urea Nitrogen 11.3 6.0 - 20.0 mg/dL 07/27/2024 1:33 AM AMBULATORY SERVICES REPRESENTATIVE [facility] Creatinine 0.69 0.51 - 0.95 mg/dL 07/27/2024 1:33 AM AMBULATORY SERVICES REPRESENTATIVE [facility] GFR Estimate >90 >60 mL/min/1.7 3m2 07/27/2024 1:33 AM AMBULATORY SERVICES REPRESENTATIVE [facility] Comment:eGFR calculated usin 2020 CKD-EPI equation. Calcium 9.3 8.8 - 10.4 mg/dL 07/27/2024 1:33 AM AMBULATORY SERVICES REPRESENTATIVE [facility] Chloride 107 98 - 107 mmol/L 07/27/2024 1:33 AM AMBULATORY SERVICES REPRESENTATIVE [facility] Glucose 77 70 - 99 mg/dL 07/27/2024 1:33 AM AMBULATORY SERVICES REPRESENTATIVE [facility] Alkaline Phosphatase 89 40 - 150 U/L 07/27/2024 1:33 AM AMBULATORY SERVICES REPRESENTATIVE [facility] AST 16 0 - 45 U/L 07/27/2024 1:33 AM AMBULATORY SERVICES REPRESENTATIVE [facility] ALT 13 0 - 50 U/L 07/27/2024 1:33 AM AMBULATORY SERVICES REPRESENTATIVE [facility] Protein Total 6.6 6.4 - 8.3 g/dL 07/27/2024 1:33 AM AMBULATORY SERVICES REPRESENTATIVE [facility] Albumin 4.0 3.5 - 5.2 g/dL 07/27/2024 1:33 AM AMBULATORY SERVICES REPRESENTATIVE [facility] Bilirubin Total 0.2 <=1.2 mg/dL 07/27/2024 1:33 AM AMBULATORY SERVICES REPRESENTATIVE [facility] Blood BLOOD SPECIMEN / Unknown Venipuncture / Unknown 07/26/2024 10:28 AM AMBULATORY SERVICES REPRESENTATIVE 07/26/2024 10:28 AM AMBULATORY SERVICES REPRESENTATIVE Carmen Menon MD LAB - BLOOD ORDERABL ES Final Result [facility] [address] [facility], Room [address] [place] [phone] from Last 3 Months or Most Recently Relevant to Health Maintenance Additional Health Concerns Active Problems Noted Date Diagnosed Date MyC ECC SURG ENROLL 08/18/2023 Insurance [facility] Advance Directives For more information, please contact: [phone] * Full Code (Latest Code Status on File) Date Activated Date Inactivated Comments 08/24/2023 9:55 AM 08/26/2023 2:25 PM All basic and advanced life-sustaining interventions are performed as appropriate Question Answer Comments Code status determined by: Discussion with patie nt/ legal decision maker * Full Code Date Activated Date Inactivated Comments 08/16/2023 10:20 PM 08/18/2023 3:12 PM All basic a nd advanced life-sustaining interventions are performed as appropriate Question Answer Comments Code status determined by: Discussion with patie nt/ legal decision maker Care Teams Liquefier Relationship Specialty Start Date End Date [facility], [facility] [address] [place] [address] PCP - General 08/15/23 Khushbu Jain, ANAND Specialty Biostatistics Director Hematology & Oncology 09/04/23 Carmen Menon MD [address] [place] [address] Neurology 09/04/23 Tayler Courtney MD PhD [address] [place] [address] [phone] Radiation Oncology 09/04/23 Carmen Menon MD [address] [place] [address] Assigned Neuroscience Provider 09/16/23 Tayler Courtney MD PhD [address] [place] [address] [phone] Assigned Cancer Care Provider 10/17/23 Jayne Sumner, [facility] 11/07/23
--- OUTSIDE RECORDS SUMMARY | 2025-03-08 11:18 | XMS_ITS ---
Author Organization [place] Address [address] [place] [address] Care Team Providers Care Molding Supervisor Name Role Phone [facility] Pro vider Khushbu Jain RN Unavailable Unavailable Carmen Menon MD Unavailable + [phone] Tayler Courtney MD PhD Unavailable +[phone] Carmen Menon MD Unavailable + [phone] Tayler Courtney MD PhD Unavailable [phone] Jayne Sumner [facility] Unavailable Unavailable Active Problems Problem Noted [...]
--- OUTSIDE RECORDS SUMMARY | 2025-03-08 11:18 | XMS_ITS | Encounter Summary ---
Author Organization [place] Address [address] [place] [address]. [place] [address] Care Team Providers Care Cigar Packer And Sorter Name Role Phone Clinic, [facility] [place] [facility] Pro vider Khushbu Jain RN Unavailable Unavailable Carmen Menon MD Unavailable + [phone] Tayler Courtney MD PhD Unavailable +[phone] Carmen Menon MD Unavailable + [phone] Tayler Courtney MD PhD Unavailable [phone] Jayne Sumner [facility] Unavailable Unavailable Encounter Details Date Type Department Care Team (Late st Contact Info) Description 11/14/2023 MyC Medical Advice [facility] Radiation Oncology [address] [facility], 1st [place] [phone] More De Anda, RN Social History Tobacco [...] Sex Assigned at Female 05/03/2024 7:08 AM TUCKPOINTER Legal Sex Female 3:27 AM TUCKPOINTER Gender Identity Female 05/03/2024 7:08 AM TUCKPOINTER Sexual Orientation Not on file documented as of this encounter Plan of Treatment Upcoming Encounters Date Type Department Care Team (Late st Contact Info) Description 04/07/2025 3:00 PM CDT Ancillary Procedure [facility] [place] [address] [facility] 1st [place] [phone] Carmen Menon MD [address] [place] [address] 04/07/2025 4:30 PM CDT Oncology Visit [facility] [address] [place] [phone] Carmen Menon MD [address] [place] [address] 04/10/2025 11:00 AM CDT Office Visit [facility] Radiation Oncology 500 [facility], 1st [place] [phone] Tayler Courtney MD PhD [address] [place] [address] 384425 documented as of this encounter Goals Goal [...] documented as of this encounter Care Teams Cigar Packer And Sorter Relationship Specialty Start Date End Date Clinic, [facility] [place] [address] [place] [address] PCP - General 08/15/23 Khushbu Jain, RN Specialty Grease Machine Worker Hematology & Oncology 09/04/23 Carmen Menon MD 909 [place], [place] [phone] Neurology 09/04/23 Tayler Courtney MD PhD [address] [place] [address] Radiation Oncology 09/04/23 Carmen Menon MD 909 [place], [place] 054845 Assigned Neuroscience Provider 09/16/23 Tayler Courtney MD PhD 500 [place] [address] Assigned Cancer Care Provider 10/17/23 Jayne Sumner, [facility] Pharmacist 11/07/23 documented as of this encounter
--- OUTSIDE RECORDS SUMMARY | 2025-03-08 11:18 | XMS_ITS | Encounter Summary ---
Author Organization [place] Address [address] [place] [address]. [place] [address] Care Team Providers Care Clothing Sorter Name Role Phone Clinic, [facility] [place] Primary Care Pro vider Khushbu Jain RN Unavailable Unavailable Carmen Menon MD Unavailable +[phone] Tayler Courtney MD PhD Unavailable [phone] Carmen Menon MD Unavailable + [phone] Tayler Courtney MD PhD Unavailable [phone] Jayne Sumner [facility] Unavailable Unavailable Encounter Details Date Type Department Care Team (Late st Contact Info) Description 12/09/2024 [facility] 9 [place] [address] Jarrell Keith Social History Tobacco [...] Assigned at Female 05/03/2024 7:08 AM MECHANICAL TEST TECHNICIAN Legal Sex Female 3:27 AM MECHANICAL TEST TECHNICIAN Gender Identity Female 05/03/2024 7:08 AM MECHANICAL TEST TECHNICIAN Sexual Orientation Not on file documented as of this encounter Plan of Treatment Upcoming Encounters Date Type Department Care Team (Late st Contact Info) Description 04/07/2025 3:00 PM CDT Ancillary Procedure [facility] 909 [facility] 1st [place] [phone] Carmen Menon MD [address] [place] [address] 397165 04/07/2025 4:30 PM CDT Oncology Visit [facility] 909 [place] [phone] Carmen Menon MD [address] [place] [address] 585195 04/10/2025 11:00 AM CDT Office Visit [facility] Radiation Oncology 500 [facility], 1st [place] [phone] Tayler Courtney MD PhD [address] [place] [address] 520435 documented as of this encounter Goals Goal [...] documented as of this encounter Care Teams Clothing Sorter Relationship Specialty Start Date End Date [facility] [address] [place] [address] PCP - General 08/15/23 Khushbu Jain, RN Specialty Line Runner Hematology & Oncology 09/04/23 Carmen Menon MD 909 [place] [address] Neurology 09/04/23 Tayler Courtney MD PhD [address] [place] [address] Radiation Oncology 09/04/23 Carmen Menon MD 909 [place] [address] Assigned Neuroscience Provider 09/16/23 Tayler Courtney MD PhD 500 [place] [address] Assigned Cancer Care Provider 10/17/23 Jayne Sumner [facility] Pharmacist 11/07/23 documented as of this encounter
--- OUTSIDE RECORDS SUMMARY | 2025-03-08 11:18 | XMS_ITS | Encounter Summary ---
Author Organization [place] Address [address] [place] [address]. [place] [address] Care Team Providers Care It Business Systems Analyst Name Role Phone Clinic, [facility] [place] Primary Care Pro vider Khushbu Jain RN Unavailable Unavailable Carmen Menon MD Unavailable + [phone] Tayler Courtney MD PhD Unavailable [phone] Carmen Menon MD Unavailable + [phone] Tayler Courtney MD PhD Unavailable +[phone] Jayne Sumner [facility] Unavailable Unavailable Encounter Details Date Type Department Care Team (Late st Contact Info) Description 01/10/2024 MyC Medical Advice [facility] 909 [place] [address] Rashida Bettencourt RPH [facility] [address] [place], [place] [address] [place] [address] Social History Tobacco Use Types [...] Sex Assigned at Female 05/03/2024 7:08 AM WELT DRAWER Legal Sex Female 3:27 AM WELT DRAWER Gender Identity Female 05/03/2024 7:08 AM WELT DRAWER Sexual Orientation Not on file documented as of this encounter Plan of Treatment Upcoming Encounters Date Type Department Care Team (Late st Contact Info) Description 04/07/2025 3:00 PM CDT Ancillary Procedure [facility] 909 [facility] 1st [place] [phone] Carmen Menno MD [address] [place] [address] 04/07/2025 4:30 PM CDT Oncology Visit [facility] [address] [place] [phone] Carmen Menon MD [address] [place] [address] [phone] 04/10/2025 11:00 AM CDT Office Visit [facility] Radiation Oncology [address] [facility], 1st [place] [phone] Tayler Courtney MD PhD [address] [place] [address] documented as of this encounter Goals Goal [...] documented as of this encounter Care Teams It Business Systems Analyst Relationship Specialty Start Date End Date [facility], [address] [address] PCP - General 08/15/23 Khushbu Jain, RN Specialty Lime Mixer Hematology & Oncology 09/04/23 Carmen Menon MD [address] [place] [address] Neurology 09/04/23 Tayler Courtney MD PhD [address] [place] [address] Radiation Oncology 09/04/23 Carmen Menon MD [address] [place] [address] Assigned Neuroscience Provider 09/16/23 Tayler Courtney MD PhD 500 [place] [address] Assigned Cancer Care Provider 10/17/23 Jayne Sumner, [facility] Pharmacist 11/07/23 documented as of this encounter
--- OUTSIDE RECORDS SUMMARY | 2025-03-08 11:18 | XMS_ITS | Encounter Summary ---
Author Organization [place] Address [address] [place] [address] Care Team Providers Care Power Checker Name Role Phone Clinic, [facility] Care Pro vider Khushbu Jain RN Unavailable Unavailable Carmen Menon MD Unavailable +- [phone] Tayler Courtney MD PhD Unavailable [phone] Carmen Menon MD Unavailable + [phone] Tayler Courtney MD PhD Unavailable [phone] Jayne Sumner [facility] Unavailable Unavailable Encounter Details Date [...] Sex Assigned at Female 05/03/2024 7:08 AM ELECTRIC MOTOR WINDER Legal Sex Female 3:27 AM ELECTRIC MOTOR WINDER Gender Identity Female 05/03/2024 7:08 AM ELECTRIC MOTOR WINDER Sexual Orientation Not on file documented as of this encounter Plan of Treatment Upcoming Encounters Date Type Department Care Team (Late st Contact Info) Description 04/07/2025 3:00 PM CDT Ancillary Procedure [facility] MRI [place] 909 [facility] 1st [place] [phone] Carmen Menon MD [address] [place] [address] 839085 04/07/2025 4:30 PM CDT [facility] [address] [place] [phone] Carmen Menon MD [address] [place] [address] 943525 04/10/2025 11:00 AM CDT Office Visit [facility] Radiation Oncology 500 [facility], 1st [place] [phone] Tayler Courtney MD PhD [address] [place] [address] [phone] documented as of this encounter Goals Goal [...] documented as of this encounter Care Teams Power Checker Relationship Specialty Start Date End Date Clinic, [facility] [address] [place] [address] PCP - General 08/15/23 Khushbu Jain, RN Specialty Laboratory Mechanic Helper Hematology & Oncology 09/04/23 Carmen Menon MD 909 [place], [place] [phone] Neurology 09/04/23 Tayler Courtney MD PhD [address] [place] [address] 774895 Radiation Oncology 09/04/23 Carmen Menon MD [address] [place] [address] 107195 Assigned Neuroscience Provider 09/16/23 Tayler Courtney MD PhD [address] [place] [address] 424335 Assigned Cancer Care Provider 10/17/23 Jayne Sumner [facility] Pharmacist 11/07/23 documented as of this encounter
--- OUTSIDE RECORDS SUMMARY | 2025-03-08 11:18 | XMS_ITS | Encounter Summary ---
Author Organization [place] Address [address] [place] [address] Care Team Providers Care Bulb Grower Name Role Phone Clinic, [facility] Pro vider Khushbu Jain RN Unavailable Unavailable Carmen Menon MD Unavailable + [phone] Tayler Courtney MD PhD Unavailable [phone] Carmen Menon MD Unavailable + [phone] Tayler Courtney MD PhD Unavailable [phone] Jayne Sumner [facility] Unavailable Unavailable Encounter Details Date Type Department Care Team (Late st Contact Info) Description 08/23/2024 [facility] [facility] [address] [place] [phone] Carmen Menon MD [address] [place] [address] Social History Tobacco Use Types Packs/Day [...] Sex Assigned at Female 05/03/2024 7:08 AM NIGHT WAREHOUSE SELECTOR Legal Sex Female 3:27 AM NIGHT WAREHOUSE SELECTOR Gender Identity Female 05/03/2024 7:08 AM NIGHT WAREHOUSE SELECTOR Sexual Orientation Not on file documented as of this encounter Plan of Treatment Upcoming Encounters Date Type Department Care Team (Late st Contact Info) Description 04/07/2025 3:00 PM CDT Ancillary Procedure [facility] [address] [facility] 1st [place] [phone] Carmen Menon MD [address] [place] [phone] 04/07/2025 4:30 PM CDT Oncology Visit [facility] [address] [place] [phone] Carmen Menon MD [address] [place] [address] [phone] 04/10/2025 11:00 AM CDT Office Visit [facility] Radiation Oncology [address] [facility], 1st [place] [phone] Tayler Courtney MD PhD [address] [place] [address] documented as of this encounter Goals Goal [...] documented as of this encounter Care Teams Bulb Grower Relationship Specialty Start Date End Date Clinic, [facility] [id number] [place] [phone] PCP - General 08/15/23 Khushbu Jain, RN Specialty Broiler Supervisor Hematology & Oncology 09/04/23 Carmen Menon MD [address] [place] [address] Neurology 09/04/23 Tayler Courtney MD PhD [address] [place] [address] Radiation Oncology 09/04/23 Carmen Menon MD [address] [place] [address] Assigned Neuroscience Provider 09/16/23 Tayler Courtney MD PhD [address] [place] [address] Assigned Cancer Care Provider 10/17/23 Jayne Sumner, [facility] Pharmacist 11/07/23 documented as of this encounter
--- OUTSIDE RECORDS SUMMARY | 2025-03-08 11:18 | XMS_ITS | Encounter Summary ---
Author Organization [place] Address [address] [place] [address] Care Team Providers Care Leave Specialist Name Role Phone Clinic, [facility] Pro vider Khushbu Jain RN Unavailable Unavailable Carmen Menon MD Unavailable + [phone] Tayler Courtney MD PhD Unavailable [phone] Carmen Menon MD Unavailable + [phone] Tayler Courtney MD PhD Unavailable [phone] Jayne Sumner [facility] Unavailable Unavailable Encounter Details Date Type Department Care Team (Late st Contact Info) Description 11/02/2023 [facility] Medical Advice [facility] Radiation Oncology [address] [facility], 1st [place] [phone] Tayler Courtney MD PhD [address] [place] [address] Social History Tobacco Use Types Packs/Day Years [...] Assigned at Female 05/03/2024 7:08 AM BUSINESS MANAGEMENT INTERN Legal Sex Female 3:27 AM BUSINESS MANAGEMENT INTERN Gender Identity Female 05/03/2024 7:08 AM BUSINESS MANAGEMENT INTERN Sexual Orientation Not on file documented as of this encounter Plan of Treatment Upcoming Encounters Date Type Department Care Team (Late st Contact Info) Description 04/07/2025 3:00 PM CDT Ancillary Procedure [facility] [address] [facility] 1st [place] [phone] Carmen Menon MD [address] [place] [address] 04/07/2025 4:30 PM CDT Oncology Visit [facility] [address] [place] [phone] Carmen Menon MD [address] [place] [phone] 04/10/2025 11:00 AM CDT Office Visit [facility] Radiation Oncology 500 [facility], 1st [place] [phone] Tayler Courtney MD PhD [address] [place] [address] documented as of this encounter Goals Goal [...] documented as of this encounter Care Teams Leave Specialist Relationship Specialty Start Date End Date Clinic, [facility] [address] [place] [address] PCP - General 08/15/23 Khushbu Jain, ANAND Specialty Associate Financial Advisor Hematology & Oncology 09/04/23 Carmen Menon MD [address] [place] [address] Neurology 09/04/23 Tayler Courtney MD PhD [address] [place] [address] Radiation Oncology 09/04/23 Carmen Menon MD [address] [place] [address] Assigned Neuroscience Provider 09/16/23 Tayler Courtney MD PhD [address] [place] [address] Assigned Cancer Care Provider 10/17/23 Jayne Sumner, [facility] Pharmacist 11/07/23 documented as of this encounter
[2025-03-08 11:49] VITALS: BP 133/80; PULSE 77; RESP 18; TEMP 36.1; O2SAT 100; BMI 39.5
--- NOTE | 2025-03-08 13:24 | CRLHL7_ITS ---
For Patients: As a result of the Century Cures Act, medical imaging exams and procedure reports are released immediately into your electronic medical record. You may view this report before your referring provider. If you have questions, please contact your health care provider. INDICATION: Right upper extremity pain and swelling. TECHNIQUE: Ultrasound venous duplex upper right extremity. Compression venous exam was performed using barker-scale, color Doppler, and spectral Doppler imaging. COMPARISON: None. FINDINGS: Deep veins: The visualized right internal jugular, subclavian, brachial, and axillary veins are fully compressible, demonstrate normal color flow, and normal response to mechanical augmentation. The Duplex Doppler waveforms are normal in appearance. Superficial veins: Basilic vein thrombus in the mid arm extending to the elbow. Soft tissue: Unremarkable. IMPRESSION: 1. No DVT. 2. Basilic vein thrombus in the mid arm extending to the elbow. Dictated by Ventura Coleman MD @ 03/08/2025 3:23:46 PM (Electronically Signed)
[2025-03-08 15:25] VITALS: BP 128/66; PULSE 60; RESP 18; O2SAT 99
--- NOTE | 2025-03-08 15:36 | ED.GENADULT ---
HPI - General Adult General Date Seen: 03/08/25 Chief complaint: Extremity Pain/Injury, Upper Stated complaint: R arm pain Time Seen by Provider: 03/08/25 15:27 Source: patient Mode of arrival: ambulatory Limitations: no limitations History of Present Illness HPI narrative: Patient is a 39-year-old female presenting to the emergency department for right arm pain and swelling. States she has pain to her right forearm on the volar region. States she has a pressure sensation and rates the pain as a 5/10. States it has been going on for 1 week. Was here 15 days ago for blood transfusion after significant vaginal bleeding from her menstrual period. She states the bleeding stopped 2 days ago and she has not had any further bleeding. Denies any lightheadedness or dizziness. Denies any chest pain or shortness of breath. Denies fevers, chills, headache, lightheadedness. She states she is scheduled to see her online merchandising specialist in 2 days and they are talking about moving up her hysterectomy. The arm pain is the same arm where she had the IV. Related Data Home Medications ?Medication ?Instructions ?Recorded ?Confirmed escitalopram oxalate 10 mg tablet 10 mg PO QDAY 05/27/22 03/08/25 ferrous gluconate 324 mg (38 mg mg PO DAILY 06/04/24 01/29/25 iron) tablet levetiracetam 1,000 mg tablet 1,000 mg PO BID 06/04/24 03/08/25 Previous Rx's ?Medication ?Instructions ?Recorded norethindrone acetate 5 mg tablet 5 mg PO TID PRN bleeding #60 tabs 02/20/25 apixaban 5 mg (74 tabs) tablets in 5 mg PO BID #74 ea 03/08/25 a dose pack (Eliquis DVT-PE Treat 30D Start) Allergies Allergy/AdvReac Type Severity Reaction Status Date / Time No Known Drug Allergies Allergy Verified 03/08/25 11:56 Review of Systems Status of ROS: Reports: 10 or more systems reviewed and unremarkable except as noted in History and below [facility] Medical History History of vaginal delivery 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 Brother Abuse, drug or alcohol Aunt Abuse, drug or alcohol Grandfather Stroke Maternal Grandmother Cancer Social History Narrative: Cis-gender, heterosexual woman Relationship status: . Spouse/Partner: Pee Lives with her 10 children Education: Associates degree Occupation: [employer] mom Tobacco: Never smoker E-cigarettes: No Alcohol: Yes.-2 servings/month Illicit/recreational drugs: No Safety concerns at home or work: No Dietary restriction(s): No Exercise: Yes, walk 3 times per week Smoking Status: Never smoker How often do you have a drink containing alcohol: monthly or less AUDIT-C Alcohol total score: 1 Non-prescribed substance use: denies use Exam Narrative: Exam Narrative: Const: Well-nourished, Well-developed, in mild distress Eyes: no conjunctival injection, and symmetrical lids HENT: Atraumatic external nose and ears. Moist mucous membranes. CVS: RRR, No murmurs or gallops. Peripheral pulses 2+ and equal in all extremities RESP: Unlabored respiratory effort. Clear to auscultation bilaterally. MSK:Extremities w/o deformity, Normal Active ROM, mild swelling to right forearm Skin: Warm, Dry. No rashes or lesions. Neuro: Normal Muscle tone, No focal neurological deficits. Psych: Awake, Alert, & Oriented x3. Appropriate mood and affect. Const: Vital Signs, click to edit/add: Vital Signs - 24 hr 03/08/25 11:49 03/08/25 15:25 Temperature 97.0 F L Pulse Rate [Pulse Oximeter] 77 60 Respiratory Rate 18 18 Blood Pressure [Ri t Upper Arm] 133/80 128/66 Pulse Oximetry 100 99 Oxygen Delivery Me thod Room Air Room Air Course Vital Signs Vital signs: Initial Vital Signs Temperature 97.0 F L 03/08/25 11:49 Temperature Source Temporal Artery Scan 03/08/25 11:49 Pulse Rate 77 03/08/25 11:49 Respiratory Rate 18 03/08/25 11:49 Blood Pressure 133/80 03/08/25 11:49 Blood Pressure Mean 97 03/08/25 11:49 Blood Pressure Position Sitting 03/08/25 11:49 Pulse Oximetry 100 03/08/25 11:49 Oxygen Delivery Method Room Air 03/08/25 11:49 Vital Signs Temperature 97.0 F L 03/08/25 11:49 Pulse Rate 77 03/08/25 11:49 Respiratory Rate 18 03/08/25 11:49 Blood Pressure 133/80 03/08/25 11:49 Pulse Oximetry 100 03/08/25 11:49 Oxygen Delivery Method Room Air 03/08/25 11:49 Temperature 97.0 F L 03/08/25 11:49 Pulse Rate 60 03/08/25 15:25 Respiratory Rate 18 03/08/25 15:25 Blood Pressure 128/66 03/08/25 15:25 Pulse Oximetry 99 03/08/25 15:25 Oxygen Delivery Method Room Air 03/08/25 15:25 Medical Decision Making MDM Narrative Medical decision making narrative: Patient is a 39-year-old female presenting to the emergency department for pain to her right arm. Ultrasound was ordered to look for signs of a blood clot. The returned showing a large clot and the right basilic going from midway point of the arm to the elbow. Considering the length of the superficial thrombophlebitis recommendation is to start on a blood thinner. Considering the bleeding has stopped and she already has close follow-up with OB Gyne I do feel comfortable starting her on Eliquis. I spoke to her about stopping the Eliquis if she still notices any signs of bleeding. She is agreeable to this plan. Imaging Data Venous US: Attestation: I have reviewed the pertinent imaging results. Radiologist's impression: 1. No DVT. 2. Basilic vein thrombus in the mid arm extending to the elbow. Dictated by Ventura Coleman MD @ 03/08/2025 3:23:46 PM Discharge Plan Discharge Clinical Impression: Superficial thrombophlebitis Qualifiers: Superficial thrombophlebitis-Involved body area: upper extremity Laterality: right Qualified Code(s): I80.8 - Phlebitis and thrombophlebitis of other sites Patient Disposition: Home, Self-Care Condition: Stable Instructions: Superficial Thrombophlebitis (ED) Additional Instructions: Start taking the Eliquis as directed. If he notice any vaginal bleeding stop taking it immediately. Return to emergency department for new or worsening symptoms. Have close follow-up with the online merchandising specialist due to your history of vaginal bleeding and let them know your started on a blood thinner for your blood clot. If you developed chest pain and shortness of breath return for re-evaluation also. I also recommend following up with your primary care provider about this blood clot. Prescriptions: New Eliquis DVT-PE Treat 30D Start 5 mg (74 tabs) tablets,dose pack 5 mg PO BID Qty: 74 0RF Rx Instructions: take 10 mg twice daily for for 7 days then 5 mg twice daily the her after that No Action escitalopram oxalate 10 mg tablet 10 mg PO QDAY levetiracetam 1,000 mg tablet 1,000 mg PO BID ferrous gluconate 324 mg (38 mg iron) tablet PO DAILY norethindrone acetate 5 mg tablet 5 mg PO TID PRN (Reason: bleeding) Qty: 60 1RF Follow Up/Referrals: Provider,Not a Local [Primary Care Provider, Family Practice] Stand Alone Forms: MyHealth Info Instructions
== END 2025-03-08 16:00 | disposition home or self-care (01) ==
PROVIDERS: Emergency Provider Student in an Organized Health Care Education/Training Program
DX: I82.611 Acute embolism and thrombosis of superficial veins of right upper extremity (principal)
CPT/HCPCS: 93971; 99283

== ENCOUNTER 2025-03-26 11:05 | Outpatient (CLI) | payer OTHER, SELFPAY | END 2025-03-26 11:06 | disposition home or self-care (01) | PROVIDERS: Visit Provider Nurse Practitioner Family | DX: Z01.818 Encounter for other preprocedural examination (principal); D64.9 Anemia, unspecified | CPT/HCPCS: 80053; 82728 ==

== ENCOUNTER 2025-04-09 08:37 | Day surgery (SDC) | payer OTHER, SELFPAY ==
[2025-04-09] VITALS (21 sets, daily range): BP systolic 104–139; BP diastolic 54–75; PULSE 46–65; RESP 12–18; TEMP 35.4–36.7; O2SAT 93–99; BMI 40.0
[2025-04-09] MEDS: GABAPENTIN 600 MG TABLET PO (08:56)
[2025-04-09] MEDS: ACETAMINOPHEN 500 MG TABLET 1000 MG PO (08:56)
[2025-04-09] MEDS: SCOPOLAMINE 1 MG/3 DAY PATCH 1 PATCH TRANSDERMA (08:56)
[2025-04-09] MEDS: LACTATED RINGERS 1000 ML 1,000 ML 100 ML IV ×2 (09:00→11:40)
[2025-04-09] MEDS: SODIUM CHLORIDE 0.9 % (FLUSH) 10 ML SYRINGE IVF (09:33)
[2025-04-09 09:55] LABS: Hematocrit* 33.8 % (33.0-51.0); Hemoglobin* 10.5 gm/dL (12.0-16.0); Immature Granulocytes Abs Auto 0.00 K/uL (0.00-0.30); Immature Granulocytes Pct Auto 0.0 %; Mean Corpuscular HGB Conc 31 gm/dL (32-36); Mean Corpuscular Hemoglobin 26 pg (26-34); Mean Corpuscular Volume 84 fL (80-100); RDW Coefficient of Variation % 26.0 % (11.5-15.5); Red Blood Count* 4.03 m/uL (4.00-5.20); White Blood Count* 4.21 K/uL (4.50-11.00)
[2025-04-09 09:59] LABS: Lymphocytes Absolute Auto 1.00 K/uL (0.90-2.90)
[2025-04-09 10:00] LABS: Slide Review Reflex Yes
--- NOTE | 2025-04-09 10:02 | W.PM.H&PU ---
History & Physical Update History & Physical Update H&P Reviewed and patient assessed: The following changes are noted below H&P Updates: Patient saw a lining strap closer, for superficial vein thrombophlebitis no anticoagulation was recommended. She will schedule follow-up after surgery to consider any additional testing if needed. Patient also completed IV iron infusion about 2 weeks ago. Her hemoglobin this morning is 10.5 mg/dL. She has only experienced minimal spotting since our last appointment. Will proceed with surgery as planned.
[2025-04-09 10:20] LABS: HCG Qualitative Serum* Negative (Negative)
[2025-04-09 10:57] LABS: Slide Review Acceptable Review (Acceptable)
[2025-04-09] MEDS: BUPIVACAINE 0.25% 30 ML INJECTION (11:20)
[2025-04-09] MEDS: FLUORESCEIN 10% INJ 500 MG IVP (12:55)
--- NOTE | 2025-04-09 12:56 | W.PM.NB ---
Nerve Block Nerve Block Time Seen by Provider: 10:30 Date Seen: 04/09/25 Type of block requested by surgeon for post-operative analgesia: TAP Side: bilateral Time out performed: Yes Verification of patient name: Yes Verification of date of : Yes Name of person performing procedure: Audi Continuous monitoring Was continuous monitoring of O2 sat, B/P, cardiac cath lab technologist, recorded every 15 minutes?: Yes Procedure Checklist: sterile prep and needles Ultrasound guided. Images saved: Yes Medications given in 5ml increments after negative aspiration: Marcaine %: 0.25 mL: 30 Needle gauge: 20 and Exparel mL: 10 Patient tolerated procedure well: Yes Block Charges Block Charge (with Pro Fee): TAP Bilateral Use of Ultrasound Machine for Block: Yes- US Guidance/pain block
--- NOTE | 2025-04-09 13:10 | P.GYNPRC_ITS ---
Procedure Note Date of procedure: 04/09/[address] [facility] bill your pro fee for this procedure?: Yes Pre-op diagnosis: Abnormal uterine bleeding, anemia. Post-op diagnosis: Same Procedure: Total laparoscopic hysterectomy, bilateral salpingectomy, cystoscopy Anesthesia: GETA Complications: None Surgeon: Tan Garcia MD Factory Maintenance Technician: Olga Garcia Estimated blood loss (mL): 300 IV fluids (mL): 1,800 Urine Output (mL): 650 Pathology: specimen obtained, sent to pathology (Uterus and cervix, bilateral fallopian tubes) Condition: stable Disposition: floor Findings: Pelvic exam: Normal external genitalia, speculum exam: multiparous cervix, w/o gross lesions or abnormal discharge. Intra abdominal: Grossly normal liver, stomach and intestines. Thin omental adhesion to anterior abdominal wall at the right upper abdominal quadrant. Pelvis: Uterus of about 10cm, floppy, boggy. Left fallopian tube with a paratubal cyst that measured about 1cm. Otherwise grossly normal fallopian tubes and ovaries bilaterally. Cystoscopy: Intact bladder mucosa, bilateral ureteral jets noted during cystoscopy. Procedure Description: DESCRIPTION OF PROCEDURE: After obtaining informed consent, the patient was taken to the operating room where general anesthesia was obtained without difficulty. She was prepared and draped in the normal sterile fashion in the low dorsal lithotomy position. A Caraballo catheter was inserted into the bladder and left to drain by gravity. A medium Graves open-sided speculum was introduced into the vagina. The cervix was visualized and grasped along its anterior lip with a single-tooth tenaculum. The uterus was gently sounded. Sound length was found to be 10 cm. Cervical dilation was not needed. I then placed an X- large VCare uterine manipulator. The tenaculum and speculum were removed. The green VCare cup was digitally pressed up against the cervix and then cinched in place with the blue accessory cup. I then changed gloves and my attention was turned to the abdomen. The superior aspect of the umbilical fold were grasped with Allis clamps and injected with 0.25% Marcaine plain. A 5 mm vertical incision was then made within the umbilical fold using a scalpel. A direct entry technique was used, a 5 mm laparoscopic port with CO2 gas set at 5mmHg was introduced under direct visualization. The trocar was removed leaving the sleeve in place. The CO2 gas flow was turned to high flow to achieve pneumoperitoneum. The 5 mm laparoscope was used then to carefully inspect the abdomen and pelvis with findings noted above. Pictures were taken for documentation purposes. The patient was placed in deep Trendelenburg positioning. Two additional ports were placed in the right and left lower quadrants under direct visualization after first anesthetizing the skin and fascia with 0.25% Marcaine plain. On the left side a 11mm port was utilized and on the right side a 5mm port placed. An additional 5mm port was placed on the abdomen at the level of the umbilicus to the left of umbilicus, about 5-6 cm lateral from umbilicus under direct visualization. Once the ports were in place, the VCare manipulator was used to elevate the uterus. The VCare cup was visualized and palpated with a blunt grasper. The left tube was elevated with a graspers. The LigaSure device was used to dissect the tube from it's ovarian and broad ligament and cornual attachments before removing the tube through a lower port. Excellent hemostasis was obtained. Left paratubal cyst was noted to detach from fallopian tube while the tube was removed from the 11mm port. I attempted to grab it again with grasper and unfortunately it got trapped in the port and I attempted removal of the port but upon inspection the cyst was not seen at the port, when we re evaluated the abdomen we could not localize it either. Suspicion at this time that we were unable to remove from the abdomen. The left utero-ovarian ligament was then sealed and transected in a wide swath with the LigaSure device. Hemostasis secured. The left round ligament was then sealed in a wide swath and transected with the LigaSure, excellent hemostasis was obtained. The broad ligament was then opened using the LigaSure anteriorly and posteriorly along the cervix from the left within the confines of the VCare cup. Pressure was maintained on the uterine manipulator the whole time. The left uterine vessels were sealed in a wide swath and transected with the LigaSure, then the tissues over the VCare cup edge on the left side were thinned using the LigaSure to the midline posteriorly and anteriorly so that the fascial layer could be identified. The right tube was elevated with a graspers. The LigaSure device was used to dissect the tube from it's ovarian and broad ligament and cornual attachments before removing the tube through a lower port. Excellent hemostasis was obtained. The right utero-ovarian ligament sealed and transected in a wide swath with the LigaSure device. Hemostasis secured. The right round ligament was then sealed in a wide swath and transected with the LigaSure, excellent hemostasis was obtained. The broad ligament was then opened using the LigaSure anteriorly and posteriorly along the cervix from the right within the confines of the VCare cup. Pressure was maintained on the uterine manipulator the whole time. The right uterine vessels were sealed in a wide swath and transected with the LigaSure, then the tissues over the VCare cup edge on the right side were thinned using the LigaSure to the midline posteriorly and anteriorly so that the fascial layer could be identified. Once an adequate dissection was made circumferentially, monopolar laparoscopic spatula was utilized to dissect until identification of the green Vcare cup, tissue dissected circumferentially around the cervix within the groove of the VCare cup. Once the dissection was completed circumferentially, from the vagina the uterine manipulator and the uterus were removed left in the vagina to aid in maintenance of pneumoperitoneum. I again changed gloves. The vaginal cuff was reapproximated in a running fashion with a V-Loc suture starting from the right side and running across to the left and then back to the midline where the suture was cut flush with the tissues. The pelvis was copiously irrigated and hemostasis visualized. Preparations were then made for cystoscopy. Fluorescein was administered intravenously along with the IV fluids. The Caraballo catheter was removed. The patient was flattened out. Cystoscopy was performed using sterile normal saline as distending medium. The bladder was carefully inspected and noted to be free of filling defects or suture material. Both ureteral orifices were easily visualized and fluorescein tinged urine jets were noted from both sides. The cystoscope was then removed. The Caraballo catheter was replaced into the bladder. Speculum evaluation of the vaginal cuff was completed at this moment, showing adequate closure and no evidence of bleeding of escape of pneumoperitoneum. Attention was once again turned to the abdomen. The abdomen and pelvis were again irrigated and inspected for hemostasis. Valeriano was placed over excision sites to further secure hemostasis. Attention was then placed to the 11mm port site and under direct visualization using a Eladio-Cj system the fascia was closed with Vicryl 0 suture. All instruments were then removed under direct visualization. Pneumoperitoneum was allowed to escape. Port site subcutaneous fat layer was approximated utilizing Vicryl 3-0. The skin at all port sites was closed in a subcuticular fashion with 4-0 Monocryl. LiquiBand was then placed over the incisions. The patient tolerated the procedure well. Sponge, lap, needle, and instrument counts were reported as correct x2. The patient was taken to the recovery room awake and in stable condition. She did receive Ancef 3g at beginning of surgery. PATHOLOGY SPECIMEN(S): Uterus and cervix,bilateral fallopian tubes.
--- NOTE | 2025-04-09 13:25 | P.ANES_ITS ---
Anesthesia Charges Start Date/Time Anesthesia Start Date: 04/09/25 Anesthesia Start Time: 10:23 Stop Date/Time Anesthesia Stop Date: 04/09/25 Anesthesia Stop Time: 13:25 Coding CPT Codes CPT Codes: ANESTH SURG LOWER ABDOMEN - 15990 ([id number]) P3 - PATIENT W/SEVERE SYS DISEASE, QZ - MANAGER ACTUARIAL SVC W/O SHANK CARRIER BY
--- NOTE | 2025-04-09 13:25 | W.ANESCHARGE ---
Anesthesia Charges Start Date/Time Anesthesia Start Date: 04/09/25 Anesthesia Start Time: 10:23 Stop Date/Time Anesthesia Stop Date: 04/09/25 Anesthesia Stop Time: 13:25 Coding CPT Codes CPT Codes: ANESTH SURG LOWER ABDOMEN - 88258 ([id number]) P3 - PATIENT W/SEVERE SYS DISEASE, QZ - DIRECTOR OF GROUP COUNSELING PROGRAM SVC W/O NETWORK ADMIN BY
[2025-04-09] MEDS: LACTATED RINGERS 1000 ML 1,000 ML 40 ML IV (14:27)
--- NOTE | 2025-04-09 19:33 | PC.NURSE ---
End of Shift: Patient pleasant and cooperative, A&O. VSS, afebrile. Band aid covering one lap site. all other lap sites look C/D/I. Pt reports pain this shift, managed with PRN medication, see MAR. SBA. Tolerating regular diet.
[2025-04-10 04:28] VITALS: BP 117/55; PULSE 58; RESP 17; TEMP 36.9; O2SAT 96
[2025-04-10 06:48] LABS: Creatinine* 0.7 mg/dL (0.5-1.5); Est. Creatinine Clearance* 88.37; Estimated Glomerular Filt Rate 112 ml/min
[2025-04-10 06:49] LABS: Hemoglobin* 9.3 gm/dL (12.0-16.0)
[2025-04-10] MEDS: ACETAMINOPHEN 500 MG TABLET 1000 MG PO (07:10)
--- NOTE | 2025-04-10 07:27 | PC.NURSE ---
Shift note ([id number]): Patient pleasant, alert and oriented. Tolerating regular diet. Ambulating independently. Rated pain 0-2/10. Given scheduled Toradol. Ice pack to abdomen as needed. Scant amount of bright red blood noted from lap site on right abdomen. Bandaid applied. Scattered tiny, flat blood clots noted in urine. No drainage on maxi pad. Catheter removed at HS. Good urine output. ?
--- NOTE | 2025-04-10 09:01 | P.DS_ITS ---
DS: Providers Provider Time Seen by Provider: 09:01 Date Seen: 04/10/25 Primary care physician: Thelma Orozco CNP Attending Physician on discharge: Lenora Garcia MD Date of Discharge: 04/10/25 DS: Diagnosis Discharge Diagnosis (1) S/P laparoscopic hysterectomy: Status: Acute (2) BMI 40.0-44.9, adult: Status: Acute Exam Const: Vital Signs, click to edit/add: Vital Signs - 24 hr 04/09/25 09:24 04/09/25 13:23 04/09/25 13:25 Temperature 97.5 F L 97.4 F L Pulse Rate 54 L 57 L 56 L Pulse Rate [Pulse Oximeter] Respiratory Rate 16 16 16 Blood Pressure 139/75 110/54 L 106/59 L Blood Pressure [Le ft Arm] Pulse Oximetry 99 95 96 Oxygen Delivery Me thod Room Air Room Air Room Air 04/09/25 13:30 04/09/25 13:35 04/09/25 13:40 Temperature Pulse Rate 59 L 52 L 51 L Pulse Rate [Pulse Oximeter] Respiratory Rate 16 16 16 Blood Pressure 104/68 106/62 112/58 L Blood Pressure [Le ft Arm] Pulse Oximetry 97 97 97 Oxygen Delivery Me thod Room Air Room Air Room Air 04/09/25 13:45 04/09/25 13:50 04/09/25 13:55 Temperature 97.1 F L 97.4 F L Pulse Rate 50 L 46 L 46 L Pulse Rate [Pulse Oximeter] Respiratory Rate 14 12 12 Blood Pressure 112/58 L 115/57 L 107/60 Blood Pressure [Le ft Arm] Pulse Oximetry 99 97 97 Oxygen Delivery Me thod Room Air Room Air Room Air 04/09/25 14:10 04/09/25 14:15 04/09/25 14:30 Temperature 95.7 F L 96.5 F L Pulse Rate Pulse Rate [Pulse Oximeter] 56 L 59 L 58 L Respiratory Rate 16 16 16 Blood Pressure Blood Pressure [Le ft Arm] 112/59 L 110/67 109/61 Pulse Oximetry 95 98 95 Oxygen Delivery Me thod Room Air Room Air Room Air 04/09/25 14:45 04/09/25 15:00 04/09/25 15:30 Temperature 96.7 F L Pulse Rate Pulse Rate [Pulse Oximeter] 55 L 58 L 65 Respiratory Rate 14 Blood Pressure Blood Pressure [Le ft Arm] 108/75 121/62 119/72 Pulse Oximetry 95 97 Oxygen Delivery Me thod Room Air 04/09/25 16:00 04/09/25 16:58 04/09/25 18:00 Temperature Pulse Rate Pulse Rate [Pulse Oximeter] 63 64 Respiratory Rate 16 Blood Pressure Blood Pressure [Le ft Arm] 126/65 119/67 121/70 Pulse Oximetry 97 98 Oxygen Delivery Me thod Room Air 04/09/25 19:00 04/09/25 20:10 04/09/25 22:36 Temperature 98.0 F 97.8 F 98.0 F Pulse Rate Pulse Rate [Pulse Oximeter] 62 61 56 L Respiratory Rate 16 17 18 Blood Pressure Blood Pressure [Le ft Arm] 113/64 128/67 128/59 L Pulse Oximetry 93 98 96 Oxygen Delivery Me thod Room Air Room Air Room Air 04/10/25 04:28 Temperature 98.5 F Pulse Rate Pulse Rate [Pulse Oximeter] 58 L Respiratory Rate 17 Blood Pressure Blood Pressure [Le ft Arm] 117/55 L Pulse Oximetry 96 Oxygen Delivery Me thod Room Air OB - DS: Summary Hospital Course Hospital Course: The patient is a 39 year old G [] P [] at [] weeks gestation that was admitted to the Center on for []. She had an [uncomplicated/complicated] [vaginal/] delivery. She delivered a viable [male/female] . She is [breast/bottle] feeding. the patient has done well. Peripartum Data Procedures: Procedures Operation Date: 04/09/25 10:00 Actual Procedure Side Surgeon p Laprascopic Hysterectomy, Bilateral salpingectomy, Cystoscopy Not Applicable Lenora Garcia MD Time Spent with Patient Time attestation: Total time spent providing and/or coordinating discharge services: Discharge Plan Discharge Disposition: Home w/ Parent or Adult Follow-Up Appointment: 2 weeks at [facility] Prescriptions: New acetaminophen 500 mg Tablet 1,000 mg PO Q6H PRN (Reason: pain) Qty: 30 0RF ibuprofen 600 mg Tablet 600 mg PO Q6H Qty: 30 0RF Continued levetiracetam 1,000 mg tablet 1,000 mg PO BID ferrous gluconate 324 mg (38 mg iron) tablet 324 mg PO DAILY escitalopram oxalate 20 mg tablet 20 mg PO DAILY Discontinued norethindrone acetate 5 mg tablet 5 mg PO TID PRN (Reason: bleeding) Qty: 60 1RF Activity Level: Activity as Tolerated and No Weight Bearing Activity Detail: Nothing vaginally for 6 weeks Discharge Diet: Regular Patient Instructions: Scopolamine (Absorbed through the skin) (Transderm Scop), General Anesthesia (DC), NH+C Laparoscopic Hysterectomy Follow-up: Thelma Orozco FURNACE CHARGING MACHINE OPERATOR [Primary Care Provider, Family Practice]
--- NOTE | 2025-04-10 09:05 | PM.GYNDS1 ---
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 (4) Anemia: Status: Acute Problem details: Hgb 9.3 gm/dL (5) Grand multiparity: Status: Acute Problem details: BROWNFIELD PROGRAM COORDINATOR-Discharge Summary Hospital Course Hospital Course Narrative: Patient is a 39 year old admitted on 04/09/25 for scheduled surgery: . Indication for surgery: Total laparoscopic hysterectomy, bilateral salpingectomy, cystoscopy. Intraoperative findings: Pelvic exam: Normal external genitalia, speculum exam: multiparous cervix, w/o gross lesions or abnormal discharge. Intra abdominal: Grossly normal liver, stomach and intestines. Thin omental adhesion to anterior abdominal wall at the right upper abdominal quadrant. Pelvis: Uterus of about 10cm, floppy, boggy. Left fallopian tube with a paratubal cyst that measured about 1cm. Otherwise grossly normal fallopian tubes and ovaries bilaterally. Cystoscopy: Intact bladder mucosa, bilateral ureteral jets noted during cystoscopy. She had an uncomplicated surgery. Postoperative course has been uneventful. Vitals have been stable. She has remained afebrile. Today, on postoperative day 1, she reports the pain is well controlled. She has been able to ambulate Without difficulty. She is tolerating regular diet. She is passing flatus. Caraballo catheter has been removed, and she is voiding without difficulty. Time Spent with Patient Time attestation: Total time spent providing and/or coordinating discharge services: Time spent: Less than 30 minutes BROWNFIELD PROGRAM COORDINATOR - Exam Physical Exam: Vital signs: Temp Pulse Resp BP Pulse Ox O2 Del Method 98.5 F 58 L 17 117/55 L 96 Room Air 04/10/25 04:28 04/10/25 04:28 04/10/25 04:28 04/10/25 04:28 04/10/25 04:28 04/10/25 04:28 Narrative: Physical exam: General: No acute distress Psych: Alert and oriented x4, full affect HEENT: Normocephalic, atraumatic Heart: Regular rate and rhythm, no murmur rub or gallop Lungs: Clear to auscultation bilaterally Abdomen: Normoactive bowel sounds, soft, no tenderness, rebound, or guarding, no masses, no hepatosplenomegaly, no hernias Incision(s): Appropriately tender to palpation. Clean, dry, and intact. No erythema, induration, or abnormal discharge/breakdown x4. Bandage applied on left low quadrant incision due to oozing. Bandage intact with not bleeding through noted. Skin: No lesions or rashes Lower extremities: Trace bilateral lower extremity edema Pelvic exam: Scant vaginal bleeding on pad BROWNFIELD PROGRAM COORDINATOR - DS: Data Data Completed and Pending Labs on day of discharge: Labs from last 24 hours 04/10/25 04/09/25 06:07 09:47 WBC 4.21 L RBC 4.03 Hgb 9.3 L 10.5 L Hct 33.8 MCV 84 MCH 26 MCHC 31 L RDW Coeff of Zoë 26.0 H Plt Count 280 Neut % (Auto) 64.9 Lymph % (Auto) 23.0 Perkins % (Auto) 9.5 Eos % (Auto) 1.9 Baso % (Auto) 0.7 Neut # (Auto) 2.70 Lymph # (Auto) 1.00 Perkins # (Auto) 0.40 Eos # (Auto) 0.10 Baso # (Auto) 0.00 Abs Immat Gran (auto) 0.00 Imm/Tot Granulo (auto) 0.0 Diff Slide Review Acceptable Review Creatinine 0.7 Estimated Creat Clear 88.37 Estimated GFR 112 HCG, Qual Negative Blood Type O Positive Antibody Screen NEGATIVE Procedures Procedures: Procedures Operation Date: 04/09/25 10:00 Actual Procedure Side Surgeon p Laprascopic Hysterectomy, Bilateral salpingectomy, Cystoscopy Not Applicable Lenora Garcia MD Discharge Plan Discharge Disposition: Home w/ Parent or Adult Discharging Surgeon: Angy Jones Follow-Up Appointment: 2 weeks at [facility] Prescriptions: New acetaminophen 500 mg Tablet 1,000 mg PO Q6H PRN (Reason: pain) Qty: 30 0RF ibuprofen 600 mg Tablet 600 mg PO Q6H Qty: 30 0RF Continued levetiracetam 1,000 mg tablet 1,000 mg PO BID ferrous gluconate 324 mg (38 mg iron) tablet 324 mg PO DAILY escitalopram oxalate 20 mg tablet 20 mg PO DAILY Discontinued norethindrone acetate 5 mg tablet 5 mg PO TID PRN (Reason: bleeding) Qty: 60 1RF Activity Level: Activity as Tolerated and No Weight Bearing Activity Detail: Nothing vaginally for 6 weeks Discharge Diet: Regular Patient Instructions: Scopolamine (Absorbed through the skin) (Transderm Scop), Acetaminophen (By mouth), Ibuprofen (By mouth), General Anesthesia (DC), NH+C Laparoscopic Hysterectomy Follow-up: Thelma Orozco CNP [Primary Care Provider, Family Practice] Lenora Garcai MD [Staff Physician, PARI MUTUEL CLERK] - 04/23/25 10:30 am Referral Note: This is the first scheduled appointment. Second appointment is May 23, 2025 @10:30am. Discharge Orders: Discharge Order (Routine); Ordered 04/10/25 Ordered By: Angy Jones
[2025-04-10 09:38] VITALS: PULSE 97; RESP 18; TEMP 36.7; O2SAT 97
[2025-04-10 09:44] VITALS: TEMP 36.7
[2025-04-10] MEDS: ESCITALOPRAM 10 MG TABLET 20 MG PO (09:44)
[2025-04-10] MEDS: FERROUS SULFATE 325 MG TABLET PO (09:44)
[2025-04-10] MEDS: IBUPROFEN 600 MG TABLET PO (09:54)
--- NOTE | 2025-04-10 12:48 | PC.NURSE ---
D/C note: Pt APx4. VSS. Afebrile. Pt. reported pain, pain meds administered by RN. No drainage, redness, or warmth incision sites. Pt. voiding. Pt. bedside for D/C teaching and instructions. Education provided on medication, S & S , and mobility restrictions. Pt. escorted out in W/C to personal vehicle w/ .
== END 2025-04-10 12:00 | disposition home or self-care (01) ==
LOC: OR 08:38 → MEDSURG 08:39
PROVIDERS: Obstetrics & Gynecology; PCP Nurse Practitioner Family; Visit Provider Obstetrics & Gynecology
PROC: 0UT94ZZ Resection of Uterus, Percutaneous Endoscopic Approach (ICD-10-PCS; CPT 58571; principal; 2025-04-09 10:00)
DX: N93.8 Other specified abnormal uterine and vaginal bleeding (principal); D50.0 Iron deficiency anemia secondary to blood loss (chronic); N88.8 Other specified noninflammatory disorders of cervix uteri; N83.8 Other noninflammatory disorders of ovary, fallopian tube and broad ligament; N80.03 Adenomyosis of the uterus; G89.18 Other acute postprocedural pain; C71.1 Malignant neoplasm of frontal lobe; I80.9 Phlebitis and thrombophlebitis of unspecified site
CPT/HCPCS: 58571; 00840; 36415; 64488; 76942; 81025; 82565; 84703; 85018; 85025; 86850; 86900; 86901; 88307; A4314; A9270; J0665; J0666; J0690; J1100; J1885; J2250; J2405; J2704; J3010; J3475; J3490; J7120